=== PATIENT | female | born 1970 | race African-American/Black ===

== ENCOUNTER 2019-01-03 11:36 | Inpatient (IN) | payer OTHER ==
[2019-01-03 12:05] VITALS: BMI 25.7
--- NOTE | 2019-01-03 14:22 | HP ---
CIWA Score Nausea/Vomitin-No Nausea/No Vomiting Muscle Tremors: 4-Moderate,w/Arms Extend Anxiety: 3 Agitation: 3 Paroxysmal Sweats: 3 Orientation: 0-Oriented Tacttile Disturbances: 0-None Auditory Disturbances: 0-None Visual Disturbances: 0-None Headache: 2-Mild CIWA-Ar Total Score: 15 - Admission Criteria OASAS Guidelines: Admission for Medically Managed Detox: Requires at least one of the followin. CIWA greater than 12 2. Seizures within the past 24 hours 3. Delirium tremens within the past 24 hours 4. Hallucinations within the past 24 hours 5. Acute intervention needed for co occurring medical disorder 6. Acute intervention needed for co occurring psychiatric disorder 7. Severe withdrawal that cannot be handled at a lower level of care (continued vomiting, continued diarrhea, abnormal vital signs) requiring intravenous medication and/or fluids 8. Admission ROS [facility] - HPI Chief Complaint: I want to get my life together. Allergies/Adverse Reactions: Allergies Allergy/AdvReac Type Severity Reaction Status Date / Time aspirin Allergy Difficulty Verified 01/03/19 14:55 Breathing History of Present Illness: pt is a 48yr old female seeking detox for treatment. Pt states she was sober for 5yrs and relapsed a year ago. Exam Limitations: No Limitations - Ebola screening Have you traveled outside of the country in the last 21 days: No Have you had contact with anyone from an Ebola affected area: No Have you been sick,other than usual withdrawal symptoms: No Do you have a fever: No - Review of Systems Constitutional: Chills, Diaphoresis, Loss of Appetite, Night Sweats, Changes in sleep EENT: reports: Tearing, Nose Congestion Respiratory: reports: No Symptoms reported Cardiac: reports: Lightheadedness GI: reports: Diarrhea, Poor Appetite, Poor Fluid Intake : reports: No Symptoms Reported Musculoskeletal: reports: No Symptoms Reported Integumentary: reports: Flushing, Sweating Neuro: reports: Headache, Tingling, Tremors Endocrine: reports: Excessive Sweating, Flushing, Intolerance to Cold, Intolerance to Heat Hematology: reports: No Symptoms Reported Psychiatric: reports: No Sypmtoms Reported, Judgement Intact, Mood/Affect Appropiate, Orientated x3, Agitated, Anxious Other Systems: Reviewed and Negative Patient History - Patient Medical History Hx Anemia: No Hx Asthma: No Hx Chronic Obstructive Pulmonary Disease (COPD): No Hx Cancer: No Hx Cardiac Disorders: No Hx Congestive Heart Failure: No Hx Hypertension: Yes (lisinopril 10mg ) Hx Hypercholesterolemia: No Hx Pacemaker: No HX Cerebrovascular Accident: No Hx Seizures: No Hx Dementia: No Hx Diabetes: Yes (type 2 on metformin 500mg ) Hx Gastrointestinal Disorders: No Hx Liver Disease: No Hx Genitourinary Disorders: No Hx Sexually Transmitted Disorders: No (denies) Hx Renal Disease (ESRD): No Hx Thyroid Disease: No Hx Human Immunodeficiency Virus (HIV): No (negative) Hx Hepatitis C: Yes (treated 6months ago; undetecable) Hx Depression: Yes Hx Suicide Attempt: Yes (2007 and 2013; denies any S/H ideation today) Hx Bipolar Disorder: Yes (PTSD on meds) Hx Schizophrenia: No - Patient Surgical History Past Surgical History: No Anesthesia Reaction: No - PPD History Previous Implant?: Yes Documented Results: Negative w/o proof PPD to be Administered?: Yes - Reproductive History Patient is a Female of Child Bearing Age (11 -55 yrs old): Yes Last Menstrual Period: 01/03/19 Patient : No - Smoking Cessation Smoking history: Current every day smoker Have you smoked in the past 12 months: Yes Aproximately how many cigarettes per day: 20 Hx Chewing Tobacco Use: No Initiated information on smoking cessation: Yes 'Breaking Loose' booklet given: 01/03/19 - Substance & Tx. History Hx Alcohol Use: Yes Hx Substance Use: Yes Substance Use Type: Alcohol, Cocaine, Tranquilizers Hx Substance Use Treatment: Yes (last detox [facility] 2013) - Substances Abused Alcohol Route: Oral Frequency: Daily Amount used: 4-6 cans of 16oz beer Age of first use: 48 Date of Last Use: 01/02/19 Alprazolam (Xanax) Route: Oral Frequency: Daily Amount used: 10mg Age of first use: 19 Date of Last Use: 01/03/19 Family Disease History - Family Disease History Family Disease History: Diabetes: Grandparent (breast ca), Father, Mother ( ovarian?), Sister, [place]: Grandparent, Mother Admission Physical Exam BHS - Vital Signs Vital Signs: Vital Signs - 24 hr 01/03/19 12:02 Temperature 97.4 F L Pulse Rate 66 Respiratory 18 Rate Blood Pressure 150/89 - Physical General Appearance: Yes: Appropriately Dressed, Moderate Distress, Tremorous, Irritable, Sweating, Anxious HEENTM: Yes: Hearing grossly Normal, Normal Voice, Nasal Congestion, Rhinorrhea Respiratory: Yes: Lungs Clear, Normal Breath Sounds, No Respiratory Distress Neck: Yes: No masses,lesions,Nodules Breast: Yes: Within Normal Limits Cardiology: Yes: Regular Rhythm, Regular Rate, S1, S2 Abdominal: Yes: Normal Bowel Sounds, Flat Genitourinary: Yes: Within Normal Limits Back: Yes: Normal Inspection Musculoskeletal: Yes: full range of Motion, Back pain Extremities: Yes: Normal Capillary Refill, Non-Tender, Tremors Neurological: Yes: Fully Oriented, Alert, Normal Response Integumentary: Yes: Normal Color, Diaphoresis Lymphatic: Yes: Within Normal Limits - Diagnostic (1) Benzodiazepine dependence Current Visit: Yes Status: Chronic (2) Cocaine dependence Current Visit: Yes Status: Chronic Qualifiers: Substance use status: uncomplicated Qualified Code(s): F14.20 - Cocaine dependence, uncomplicated (3) Diabetes Current Visit: Yes Status: Chronic Qualifiers: Diabetes mellitus type: type 2 Diabetes mellitus complication status: without complication (4) Major depressive disorder Current Visit: No Status: Chronic (5) Methadone maintenance therapy patient Current Visit: Yes Status: Chronic Comment: pending verification (6) PTSD (post-traumatic stress disorder) Current Visit: No Status: Chronic Cleared for Admission [facility] - Detox or Rehab [facility] Level of Care: Medically Managed Detox Regimen/Protocol: Librium [facility] Breath Alcohol Content Breath Alcohol Content: 0 Urine Pregancy Test - Result Urine Test Results: Negative- NO Line Present Urine Drug Screen - Results Drug Screen Negative: No Urine Drug Screen Results: VAHID-Cocaine, BZO-Benzodiazepines, MTD-Methadone Inpatient Rehab Admission - Rehab Decision to Admit Inpatient rehab admission?: No
[2019-01-03] MEDS ORDERED: LOPERAMIDE HCL 2 MG CAPSULE PO PRN (15:17)
[2019-01-03] MEDS ORDERED: MENTHOL/PHENOL 1 EACH UD MM PRN (15:17)
[2019-01-03] MEDS ORDERED: chlordiazePOXIDE HCL 25 MG CAPSULE PO PRN (15:17)
[2019-01-03] MEDS ORDERED: P-EPHED 60MG/TRIPROLIDI 2.5MG TABLET PO PRN (15:17)
[2019-01-03] MEDS ORDERED: ACETAMINOPHEN 325 MG TABLET (FP) PO PRN (15:17)
[2019-01-03] MEDS ORDERED: guaiFENesin/D-METHORPHAN HB 10 ML UNIT-DOSE CUPS PO PRN (15:17)
[2019-01-03] MEDS ORDERED: MAGNESIUM HYDROX 2400MG/30ML ORAL SUSPENSION 30 ML CUP PO PRN (15:17)
[2019-01-03] MEDS ORDERED: MAG HYDROX/AL HYDROX/SIMETH 30 ML UNIT-DOSE CUP PO PRN (15:17)
[2019-01-03] MEDS ORDERED: chlordiazePOXIDE HCL 25 MG CAPSULE PO ONE (15:17)
[2019-01-03] MEDS ORDERED: MAGNESIUM CITRATE 300 ML BOTTLE PO PRN (15:17)
[2019-01-03] MEDS: chlordiazePOXIDE HCL 25 MG CAPSULE PO SCH (22:19)
[2019-01-03] MEDS: THIAMINE HCL 100 MG TABLET (FP) PO SCH (22:19)
[2019-01-03] MEDS: MELATONIN 5 MG TABLETS PO PRN (22:19)
[2019-01-03] MEDS: NICOTINE POLACRILEX 4 MG GUM BC PRN (22:21)
[2019-01-04] MEDS: chlordiazePOXIDE HCL 25 MG CAPSULE PO SCH ×4 (05:47→22:44)
[2019-01-04] MEDS: NICOTINE POLACRILEX 4 MG GUM BC PRN ×3 (05:49→14:48)
[2019-01-04] MEDS ORDERED: METHADONE HCL 10 MG TABLET PO SCH (08:00)
[2019-01-04] MEDS ORDERED: METHADONE 160 MG, METHADONE 20 MG PO ONE (08:15)
[2019-01-04] MEDS ORDERED: METHADONE HCL 10 MG TABLET ONE (08:20)
[2019-01-04] MEDS ORDERED: METHADONE HCL 40 MG DISPERSABLE TABLET ONE (08:20)
[2019-01-04] MEDS: metFORMIN HCL 500 MG TABLET (FP) PO SCH (08:34)
--- NOTE | 2019-01-04 09:12 | CONSULT ---
[facility] Psychiatric Consult - Data Date of interview: 01/04/19 Admission source: [facility] Identifying data: This is a 48 years old female, single mother of three, living with her Son, unemployed, on PA support, with psychiatric hospitalization history, history of Bipolar Disorder, PTSD, is reporting alcohol, xanax , nicotine dependence and seeking for detox. Substance Abuse History: Smoking history: Current every day smoker. Have you smoked in the past 12 months: Yes. Aproximately how many cigarettes per day: 20. Hx Chewing Tobacco Use: No. Initiated information on smoking cessation: Yes. 'Breaking Loose' booklet given: 01/03/19. - Substance & Tx. History. Hx Alcohol Use: Yes. Hx Substance Use: Yes. Substance Use Type: Alcohol, Cocaine , Tranquilizers. Hx Substance Use Treatment: Yes (last detox [facility] 2013). - Substances Abused. Alcohol. Route: Oral. Frequency: Daily. Amount used : 4-6 cans of 16oz beer. Age of first use: 48. Date of Last Use: 01/02/19. * * Alprazolam (Xanax). Route: Oral. Frequency: Daily. Amount used: 10mg. Age of first use: 19. Date of Last Use: 01/03/19 Medical History: MMTP 160mg per day, DM, Psychiatric History: Patient reports history of depression, history of psychiatric hospitalizations with most recent time on moren then 10 years ago, as per charts tjere is a history of suicidal attempts on 2007 and 2013, patient reports no suicidal, ezequiel,icdial ideation or attenpts since then. As per chart patient suffers, MDD, Bipolar Disorder, PTSD as well. Reports no medications taking prior [facility] admission. Physical/Sexual Abuse/Trauma History: Denies, unclear Additional Comment: Observation. Detox Unit Care Protocol Mental Status Exam - Mental Status Exam Alert and Oriented to: Person Cognitive Function: Fair Patient Appearance: Well Groomed Mood: Sad Affect: Flat Patient Behavior: Sedated, Cooperative Speech Pattern: Delayed Voice Loudness: Mildly Soft/Quiet Thought Process: Goal Oriented Thought Disorder: Being Controlled Hallucinations: Denies Suicidal Ideation: Denies Homicidal Ideation: Denies Insight/Judgement: Fair Sleep: Difficulty falling asleep Appetite: Weight gain Muscle strength/Tone: Mild Hypotonicity Gait/Station: Shuffling Additional Comments: Observation. Detox Unit Care Protocol Psychiatric Findings - Problem List ([place] 1, 2,3) (1) Alcohol abuse with physiological dependence Current Visit: Yes Status: Acute (2) Benzodiazepine dependence Current Visit: Yes Status: Chronic (3) Cocaine dependence Current Visit: Yes Status: Chronic Qualifiers: Substance use status: uncomplicated Qualified Code(s): F14.20 - Cocaine dependence, uncomplicated (4) Diabetes Current Visit: Yes Status: Chronic Qualifiers: Diabetes mellitus type: type 2 Diabetes mellitus complication status: without complication (5) Methadone maintenance therapy patient Current Visit: Yes Status: Chronic Comment: pending verification (6) Major depressive disorder Current Visit: No Status: Chronic (7) PTSD (post-traumatic stress disorder) Current Visit: No Status: Chronic - Initial Treatment Plan Initial Treatment Plan: Observation. Detox Unit Care Protocol
[2019-01-04] MEDS: LISINOPRIL 10 MG TABLET (FP) PO SCH (10:14)
[2019-01-04] MEDS: PRENATAL VITAMINS W/ FOLIC ACID TABLET (FP) PO SCH (10:14)
[2019-01-04] MEDS: NICOTINE 21 MG/24 HOURS TOPICAL PATCH TD SCH (10:15)
[2019-01-04 10:44] LABS: HEMATOCRIT 27.5 % (32.4-45.2); HEMOGLOBIN 8.7 GM/dL (10.7-15.3); MCH 24.9 pg (25.7-33.7); MCHC 31.8 g/dl (32.0-36.0); MEAN CELL VOLUME 78.3 fl (80-96); MEAN PLT VOLUME 10.1 fl (7.5-11.1); PLATELET COUNT 133 K/MM3 (134-434); RBC 3.51 M/mm3 (3.60-5.2); RDW 18.6 % (11.6-15.6); WHITE BLOOD COUNT 5.2 K/mm3 (4.0-10.0)
--- NOTE | 2019-01-04 11:06 | PN ---
S CIWA - CIWA Score Nausea/Vomitin-No Nausea/No Vomiting Muscle Tremors: 3 Anxiety: 3 Agitation: 3 Paroxysmal Sweats: 3 Orientation: 0-Oriented Tacttile Disturbances: 0-None Auditory Disturbances: 0-None Visual Disturbances: 0-None Headache: 0-None Present CIWA-Ar Total Score: 12 BHS Progress Note (SOAP) Subjective: sweats some shakes interrupted sleep tired body aches Objective: 01/04/19 11:04 Vital Signs Temperature 98.2 F 01/04/19 09:31 Pulse Rate 56 L 01/04/19 09:31 Respiratory Rate 16 01/04/19 09:31 Blood Pressure 145/86 01/04/19 09:31 O2 Sat by Pulse Oximetry (%) Laboratory Tests 01/03/19 01/04/19 01/04/19 15:33 05:45 06:45 WBC 5.2 RBC 3.51 L Hgb 8.7 L Hct 27.5 L D MCV 78.3 L MCH 24.9 L D MCHC 31.8 L RDW 18.6 H Plt Count 133 L D MPV 10.1 POC Glucometer 104 97 rest of labs pending aaox3 ambulating no acute distress low H:H; iron supplements ordered Assessment: 01/04/19 11:05 withdrawal sx Plan: continue detox increase fluids labs pending iron supplement tid ordered
[2019-01-04 11:40] LABS: ALBUMIN 3.2 g/dl (3.4-5.0); ALK PHOS 99 U/L (45-117); ANION GAP 3 MMOL/L (8-16); BILIRUBIN,TOTAL < 0.1 mg/dL (0.2-1); BLOOD UREA NITROGEN 10 mg/dL (7-18); CALCIUM 8.1 mg/dL (8.5-10.1); CHLORIDE 103 mmol/L (98-107); CO2 32 mmol/L (21-32); CREATININE 0.6 mg/dL (0.55-1.3); GLUCOSE,RANDOM 78 mg/dL (74-106); SGOT/AST 46 U/L (15-37); SGPT/ALT 30 U/L (13-61); SODIUM 137 mmol/L (136-145); TOT PROT 7.1 g/dl (6.4-8.2)
[2019-01-04] MEDS: FERROUS SO4 325 MG TABLET (FP) PO SCH ×2 (12:48→17:49)
[2019-01-04] MEDS: hydrOXYzine PAMOATE 50 MG CAPSULE (FP) PO PRN (22:44)
[2019-01-04] MEDS: THIAMINE HCL 100 MG TABLET (FP) PO SCH (22:46)
[2019-01-05] MEDS ORDERED: METHADONE HCL 40 MG DISPERSABLE TABLET ONE (04:13)
[2019-01-05] MEDS ORDERED: METHADONE HCL 10 MG TABLET ONE (04:14)
[2019-01-05] MEDS: METHADONE 160 MG, METHADONE 20 MG PO SCH (05:39)
[2019-01-05] MEDS: chlordiazePOXIDE HCL 25 MG CAPSULE PO SCH ×3 (05:40→17:34)
[2019-01-05] MEDS: NICOTINE POLACRILEX 4 MG GUM BC PRN ×5 (05:42→22:17)
[2019-01-05] MEDS: hydrOXYzine PAMOATE 50 MG CAPSULE (FP) PO PRN (06:56)
[2019-01-05] MEDS: metFORMIN HCL 500 MG TABLET (FP) PO SCH (06:56)
[2019-01-05] MEDS: FERROUS SO4 325 MG TABLET (FP) PO SCH ×3 (07:14→17:32)
[2019-01-05] MEDS: PRENATAL VITAMINS W/ FOLIC ACID TABLET (FP) PO SCH (10:45)
[2019-01-05] MEDS: NICOTINE 21 MG/24 HOURS TOPICAL PATCH TD SCH (10:46)
[2019-01-05] MEDS: LISINOPRIL 10 MG TABLET (FP) PO SCH (10:46)
--- NOTE | 2019-01-05 11:36 | PN ---
[facility] CIWA - CIWA Score Nausea/Vomitin-No Nausea/No Vomiting Muscle Tremors: 3 Anxiety: 3 Agitation: 3 Paroxysmal Sweats: 2 Orientation: 0-Oriented Tacttile Disturbances: 0-None Auditory Disturbances: 0-None Visual Disturbances: 0-None Headache: 0-None Present CIWA-Ar Total Score: 11 S Progress Note (SOAP) Subjective: sweats body aches interrupted sleep Objective: 01/05/19 11:36 Vital Signs Temperature 98.6 F 01/05/19 09:00 Pulse Rate 58 L 01/05/19 09:00 Respiratory Rate 16 01/05/19 09:00 Blood Pressure 103/57 L 01/05/19 09:00 O2 Sat by Pulse Oximetry (%) Laboratory Tests 01/03/19 01/04/19 01/04/19 15:33 05:45 06:45 WBC 5.2 RBC 3.51 L Hgb 8.7 L Hct 27.5 L D MCV 78.3 L MCH 24.9 L D MCHC 31.8 L RDW 18.6 H Plt Count 133 L D MPV 10.1 Sodium Potassium Chloride Carbon Dioxide Anion Gap BUN Creatinine Creat Clearance w eGFR POC Glucometer 104 97 Random Glucose Calcium Total Bilirubin AST ALT Alkaline Phosphatase Total Protein Albumin RPR Titer 01/04/19 01/04/19 01/05/19 06:45 06:45 05:39 WBC RBC Hgb Hct MCV MCH MCHC RDW Plt Count MPV Sodium 137 Potassium 4.0 Chloride 103 Carbon Dioxide 32 Anion Gap 3 L BUN 10 Creatinine 0.6 Creat Clearance w eGFR > 60 POC Glucometer 76 Random Glucose 78 Calcium 8.1 L Total Bilirubin < 0.1 L AST 46 H ALT 30 Alkaline Phosphatase 99 Total Protein 7.1 Albumin 3.2 L RPR Titer Nonreactive aaox3 ambulating no acute distress Assessment: 01/05/19 11:36 mild withdrawal sx Plan: continue detox increase fluids
[2019-01-05] MEDS: THIAMINE HCL 100 MG TABLET (FP) PO SCH (22:16)
[2019-01-05] MEDS: chlordiazePOXIDE 5 MG CAPSULE PO SCH (22:16)
[2019-01-05] MEDS: MELATONIN 5 MG TABLETS PO PRN (22:17)
[2019-01-06] MEDS ORDERED: METHADONE HCL 40 MG DISPERSABLE TABLET ONE (04:43)
[2019-01-06] MEDS ORDERED: METHADONE HCL 10 MG TABLET ONE (04:44)
[2019-01-06] MEDS: METHADONE 160 MG, METHADONE 20 MG PO SCH (05:23)
[2019-01-06] MEDS: chlordiazePOXIDE 5 MG CAPSULE PO SCH ×3 (05:23→17:41)
[2019-01-06] MEDS: NICOTINE POLACRILEX 4 MG GUM BC PRN ×2 (06:05→17:42)
[2019-01-06] MEDS: metFORMIN HCL 500 MG TABLET (FP) PO SCH (07:05)
[2019-01-06] MEDS: FERROUS SO4 325 MG TABLET (FP) PO SCH ×3 (07:05→17:41)
[2019-01-06] MEDS: PRENATAL VITAMINS W/ FOLIC ACID TABLET (FP) PO SCH (10:27)
[2019-01-06] MEDS: LISINOPRIL 10 MG TABLET (FP) PO SCH (10:27)
[2019-01-06] MEDS: NICOTINE 21 MG/24 HOURS TOPICAL PATCH TD SCH (10:28)
--- NOTE | 2019-01-06 15:04 | PN ---
[facility] Progress Note (SOAP) Subjective: PT C/O SWEATS, TREMORS, FATIGUE. Objective: 01/06/19 15:02 Vital Signs 01/06/19 10:15 Temperature 98.1 F Pulse Rate 65 Respiratory 18 Rate Blood Pressure 113/64 Laboratory Tests 01/03/19 01/04/19 01/04/19 15:33 05:45 06:45 WBC 5.2 RBC 3.51 L Hgb 8.7 L Hct 27.5 L D MCV 78.3 L MCH 24.9 L D MCHC 31.8 L RDW 18.6 H Plt Count 133 L D MPV 10.1 Sodium Potassium Chloride Carbon Dioxide Anion Gap BUN Creatinine Creat Clearance w eGFR POC Glucometer 104 97 Random Glucose Calcium Total Bilirubin AST ALT Alkaline Phosphatase Total Protein Albumin RPR Titer 01/04/19 01/04/19 01/05/19 06:45 06:45 05:39 WBC RBC Hgb Hct MCV MCH MCHC RDW Plt Count MPV Sodium 137 Potassium 4.0 Chloride 103 Carbon Dioxide 32 Anion Gap 3 L BUN 10 Creatinine 0.6 Creat Clearance w eGFR > 60 POC Glucometer 76 Random Glucose 78 Calcium 8.1 L Total Bilirubin < 0.1 L AST 46 H ALT 30 Alkaline Phosphatase 99 Total Protein 7.1 Albumin 3.2 L RPR Titer Nonreactive 01/06/19 01/06/19 05:21 07:32 WBC RBC Hgb Hct MCV MCH MCHC RDW Plt Count MPV Sodium Potassium Chloride Carbon Dioxide Anion Gap BUN Creatinine Creat Clearance w eGFR POC Glucometer 55 108 Random Glucose Calcium Total Bilirubin AST ALT Alkaline Phosphatase Total Protein Albumin RPR Titer LOW H/H -PT ON FEOSOL Assessment: 01/06/19 15:02 WITHDRAWAL SX Plan: CONTINUE DETOX
[2019-01-06] MEDS: hydrOXYzine PAMOATE 50 MG CAPSULE (FP) PO PRN (15:34)
[2019-01-06] MEDS: chlordiazePOXIDE HCL 10 MG CAPSULE PO SCH (22:44)
[2019-01-06] MEDS: THIAMINE HCL 100 MG TABLET (FP) PO SCH (22:45)
[2019-01-07] MEDS ORDERED: METHADONE HCL 40 MG DISPERSABLE TABLET ONE (04:53)
[2019-01-07] MEDS ORDERED: METHADONE HCL 10 MG TABLET ONE (04:54)
[2019-01-07] MEDS: METHADONE 160 MG, METHADONE 20 MG PO SCH (05:23)
[2019-01-07] MEDS: chlordiazePOXIDE HCL 10 MG CAPSULE PO SCH (05:24)
[2019-01-07 06:45] VITALS: BP 135/77; PULSE 64; TEMP 97.9
[2019-01-07] MEDS: metFORMIN HCL 500 MG TABLET (FP) PO SCH (08:09)
--- NOTE | 2019-01-07 13:42 | DS ---
[facility] Detox Discharge Summary Admission Date: 01/03/19 Discharge Date: 01/07/19 - History Present History: Alcohol Dependence, Cocaine Dependence, Opioid Dependence, Sedative Dependence, MMTP Additional Comments: Patient completed detox successfully and scheduled for discharge today. Patient is A/A/Ox3, in nad, vss, ambulatory. Patient instructed to follow up with her PCP within 1-2 weeks. Pertinent Past History: Anemia HTN DMT2 Opioid dependence on agonist Alcohol dependence Sedative dependence Cocaine dependence Nicotine dependence Hepatitis C (treated) Depression Bipolar disorder PTSD - Physical Exam Results Vital Signs: Vital Signs Temperature 97.9 F 01/07/19 06:00 Pulse Rate 64 01/07/19 06:00 Respiratory Rate 16 01/07/19 06:00 Blood Pressure 135/77 01/07/19 06:00 O2 Sat by Pulse Oximetry (%) Pertinent Admission Physical Exam Findings: Withdrawal symptoms Laboratory Tests 01/03/19 01/04/19 01/04/19 15:33 05:45 06:45 WBC 5.2 RBC 3.51 L Hgb 8.7 L Hct 27.5 L D MCV 78.3 L MCH 24.9 L D MCHC 31.8 L RDW 18.6 H Plt Count 133 L D MPV 10.1 Sodium Potassium Chloride Carbon Dioxide Anion Gap BUN Creatinine Creat Clearance w eGFR POC Glucometer 104 97 Random Glucose Calcium Total Bilirubin AST ALT Alkaline Phosphatase Total Protein Albumin RPR Titer 01/04/19 01/04/19 01/05/19 06:45 06:45 05:39 WBC RBC Hgb Hct MCV MCH MCHC RDW Plt Count MPV Sodium 137 Potassium 4.0 Chloride 103 Carbon Dioxide 32 Anion Gap 3 L BUN 10 Creatinine 0.6 Creat Clearance w eGFR > 60 POC Glucometer 76 Random Glucose 78 Calcium 8.1 L Total Bilirubin < 0.1 L AST 46 H ALT 30 Alkaline Phosphatase 99 Total Protein 7.1 Albumin 3.2 L RPR Titer Nonreactive 01/06/19 01/06/19 01/07/19 05:21 07:32 05:22 WBC RBC Hgb Hct MCV MCH MCHC RDW Plt Count MPV Sodium Potassium Chloride Carbon Dioxide Anion Gap BUN Creatinine Creat Clearance w eGFR POC Glucometer 55 108 74 Random Glucose Calcium Total Bilirubin AST ALT Alkaline Phosphatase Total Protein Albumin RPR Titer Labs reviewed - Treatment Hospital Course: Detox Protocol Followed, Detoxed Safely, Responded well, Discharged Condition Good - Medication Discharge Medications: Ambulatory Orders Lisinopril [Prinivil] 10 mg PO DAILY 01/03/19 Metformin HCl [Glucophage] 500 mg PO DAILY 01/03/19 - Diagnosis (1) Anemia Current Visit: Yes Status: Chronic (2) HTN (hypertension) Current Visit: Yes Status: Chronic (3) Type 2 diabetes mellitus Current Visit: Yes Status: Chronic (4) Opioid dependence on agonist therapy Current Visit: Yes Status: Acute (5) Nicotine dependence Current Visit: Yes Status: Chronic (6) Hepatitis C Current Visit: Yes Status: Chronic (7) Bipolar disorder Current Visit: Yes Status: Chronic (8) Major depressive disorder Current Visit: Yes Status: Chronic (9) PTSD (post-traumatic stress disorder) Current Visit: Yes Status: Chronic - AMA Did Patient Leave Against Medical Advice: No (Follow up with your PCP within 1- 2 weeks)
== END 2019-01-07 09:25 | disposition home or self-care (01) | DRG 773 ==
LOC: YASAS 11:36 → Y6N 15:36
PROVIDERS: ADMIT Surgery; ATTEND Surgery
PROC: HZ2ZZZZ Detoxification Services for Substance Abuse Treatment (ICD-10-PCS; principal; 2019-01-03)
DX: F10.230 Alcohol dependence with withdrawal, uncomplicated (principal); F13.230 Sedative, hypnotic or anxiolytic dependence with withdrawal, uncomplicated; F14.20 Cocaine dependence, uncomplicated; F11.20 Opioid dependence, uncomplicated; F17.210 Nicotine dependence, cigarettes, uncomplicated; F31.9 Bipolar disorder, unspecified; F43.10 Post-traumatic stress disorder, unspecified; B18.2 Chronic viral hepatitis C; E11.9 Type 2 diabetes mellitus without complications; Z79.84 Long term (current) use of oral hypoglycemic drugs; Z91.5 Personal history of self-harm
CPT/HCPCS: 36415; 80053; 82962; 85027; 86593

== ENCOUNTER 2019-01-23 16:41 | Inpatient (IN) | payer OTHER ==
[2019-01-23 17:57] VITALS: BMI 24.0
--- NOTE | 2019-01-23 20:50 | HP ---
CIWA Score - Admission Criteria OASAS Guidelines: Admission for Medically Managed Detox: Requires at least one of the followin. CIWA greater than 12 2. Seizures within the past 24 hours 3. Delirium tremens within the past 24 hours 4. Hallucinations within the past 24 hours 5. Acute intervention needed for co occurring medical disorder 6. Acute intervention needed for co occurring psychiatric disorder 7. Severe withdrawal that cannot be handled at a lower level of care (continued vomiting, continued diarrhea, abnormal vital signs) requiring intravenous medication and/or fluids 8. Admission ROS S - HPI Chief Complaint: Seeking admission to Rehab Allergies/Adverse Reactions: Allergies Allergy/AdvReac Type Severity Reaction Status Date / Time aspirin Allergy Difficulty Verified 01/23/19 19:50 Breathing History of Present Illness: 48 years old female with a history of crack cocaine and Xanax (street) dependence is seeking admission to Rehab. Patient has been in previous Rehab. She has medical history of DM type 2, Hypertension, Hep C and Depression. She reports suicide attempt in 2007 and 2013. She denies suicidal ideation at this time. Patient is on [facility]. Dose is yet to be confirmed by the nurse. Exam Limitations: No Limitations - Ebola screening Have you traveled outside of the country in the last 21 days: No (N) Have you had contact with anyone from an Ebola affected area: No Have you been sick,other than usual withdrawal symptoms: No Do you have a fever: No - Review of Systems Constitutional: No Symptoms Reported EENT: reports: No Symptoms Reported Respiratory: reports: No Symptoms reported Cardiac: reports: No Symptoms Reported GI: reports: No Symptoms Reported : reports: No Symptoms Reported Musculoskeletal: reports: No Symptoms Reported Integumentary: reports: No Symptoms Reported Neuro: reports: No Symptoms reported Endocrine: reports: No Symptoms Reported Hematology: reports: No Symptoms Reported Psychiatric: reports: No Sypmtoms Reported, Mood/Affect Appropiate, Orientated x3 Other Systems: Reviewed and Negative Patient History - Patient Medical History Hx Anemia: No Hx Asthma: No Hx Chronic Obstructive Pulmonary Disease (COPD): No Hx Cancer: No Hx Cardiac Disorders: No Hx Congestive Heart Failure: No Hx Hypertension: Yes (lisinopril 10mg ) Hx Hypercholesterolemia: No Hx Pacemaker: No HX Cerebrovascular Accident: No Hx Seizures: No Hx Dementia: No Hx Diabetes: Yes (type 2 on metformin 500mg ) Hx Gastrointestinal Disorders: No Hx Liver Disease: No Hx Genitourinary Disorders: No Hx Sexually Transmitted Disorders: No (denies) Hx Renal Disease (ESRD): No Hx Thyroid Disease: No Hx Human Immunodeficiency Virus (HIV): No (negative) Hx Hepatitis C: Yes (treated 6months ago; undetecable) Hx Depression: Yes Hx Suicide Attempt: Yes (2007 and 2013; denies any S/H ideation today) Hx Bipolar Disorder: Yes (PTSD on meds) Hx Schizophrenia: No - Patient Surgical History Past Surgical History: No - PPD History Previous Implant?: Yes Documented Results: Positive w/o proof Implanted On Prior [facility] Admission?: Yes Date: 01/05/19 Results: 0 mm PPD to be Administered?: No - Reproductive History Patient is a Female of Child Bearing Age (11 -55 yrs old): No (MALE) Last Menstrual Period: 01/03/19 Patient : No - Smoking Cessation Smoking history: Current every day smoker Have you smoked in the past 12 months: Yes Aproximately how many cigarettes per day: 20 Hx Chewing Tobacco Use: No Initiated information on smoking cessation: Yes 'Breaking Loose' booklet given: 01/23/19 - Substance & Tx. History Hx Alcohol Use: No Hx Substance Use: Yes Substance Use Type: Cocaine Hx Substance Use Treatment: Yes ([facility]) - Substances Abused Alprazolam (Xanax) Route: Oral Frequency: Daily Amount used: half brick Age of first use: 28 Date of Last Use: 01/22/19 Cocaine Route: Smoking Frequency: Daily Amount used: 30 Age of first use: 16 Date of Last Use: 01/22/19 Family Disease History - Family Disease History Family Disease History: Diabetes: Grandparent (breast ca), Father, Mother ( ovarian?), Sister, [place]: Grandparent, Mother Admission Physical Exam BHS - Vital Signs Vital Signs: Vital Signs - 24 hr 01/23/19 17:55 Temperature 98.8 F Pulse Rate 89 Respiratory 18 Rate Blood Pressure 147/94 - Physical General Appearance: Yes: Within Normal Limits, Nourished HEENTM: Yes: EOMI, Normal ENT Inspection, Normal Voice, HEATHER Respiratory: Yes: Lungs Clear, Normal Breath Sounds, No Respiratory Distress Neck: Yes: Supple Breast: Yes: Breast Exam Deferred Cardiology: Yes: Regular Rhythm, Regular Rate Abdominal: Yes: Normal Bowel Sounds, Soft Genitourinary: Yes: Within Normal Limits Back: Yes: Normal Inspection Musculoskeletal: Yes: Within Normal Limits Extremities: Yes: Normal Inspection Neurological: Yes: sales service professional II-XII NML intact, Alert, Normal Mood/Affect Integumentary: Yes: Warm Lymphatic: Yes: Within Normal Limits Cleared for Admission [facility] - Detox or Rehab [facility] Level of Care: Observation Bed Claeared for Rehab Admission: Yes [facility] Breath Alcohol Content Breath Alcohol Content: 0 Urine Pregancy Test - Result Urine Test Results: Negative - NO Line Present Urine Drug Screen - Results Drug Screen Negative: No Urine Drug Screen Results: VAHID-Cocaine, BZO-Benzodiazepines, MTD-Methadone Inpatient Rehab Admission - Rehab Decision to Admit Inpatient rehab admission?: Yes - Initial Determination Are CD services needed?: No Free of communicable disease: Yes Not in need of hospitalization: Yes - Rehab Admission Criteria Previous failed treatment: Yes Poor recovery environment: Yes Comorbidities: Yes Lacks judgement: No Patient is meeting Inpatient Rehab admission criteria:: Yes
[2019-01-23] MEDS ORDERED: MAGNESIUM CITRATE 300 ML BOTTLE PO PRN (21:21)
[2019-01-23] MEDS ORDERED: MAG HYDROX/AL HYDROX/SIMETH 30 ML UNIT-DOSE CUP PO PRN (21:21)
[2019-01-23] MEDS ORDERED: P-EPHED 60MG/TRIPROLIDI 2.5MG TABLET PO PRN (21:21)
[2019-01-23] MEDS ORDERED: MENTHOL/PHENOL 1 EACH UD MM PRN (21:21)
[2019-01-23] MEDS ORDERED: MAGNESIUM HYDROX 2400MG/30ML ORAL SUSPENSION 30 ML CUP PO PRN (21:21)
[2019-01-23] MEDS ORDERED: guaiFENesin 200 MG/10 ML 10 ML UNIT-DOSE CUPS PO PRN (21:21)
[2019-01-23] MEDS ORDERED: LOPERAMIDE HCL 2 MG CAPSULE PO PRN (21:21)
[2019-01-23] MEDS: THIAMINE HCL 100 MG TABLET (FP) PO SCH (22:53)
[2019-01-23] MEDS: NICOTINE POLACRILEX 2 MG GUM BC PRN (23:31)
[2019-01-23] MEDS: MELATONIN 5 MG TABLETS PO PRN (23:31)
[2019-01-24] MEDS: metFORMIN HCL 500 MG TABLET (FP) PO SCH (07:38)
[2019-01-24] MEDS ORDERED: METHADONE HCL 10 MG TABLET PO ONE (08:02)
[2019-01-24] MEDS ORDERED: METHADONE 160 MG, METHADONE 20 MG PO ONE (08:30)
[2019-01-24] MEDS ORDERED: METHADONE HCL 10 MG TABLET ONE (08:45)
[2019-01-24] MEDS ORDERED: METHADONE HCL 40 MG DISPERSABLE TABLET ONE (08:47)
[2019-01-24] MEDS: PRENATAL VITAMINS W/ FOLIC ACID TABLET (FP) PO SCH (09:52)
[2019-01-24] MEDS: NICOTINE POLACRILEX 2 MG GUM BC PRN ×4 (09:52→21:37)
[2019-01-24] MEDS: NICOTINE 14 MG/24 HOURS TOPICAL PATCH TD SCH (09:52)
[2019-01-24] MEDS: LISINOPRIL 10 MG TABLET (FP) PO SCH (09:53)
[2019-01-24 10:34] LABS: ALK PHOS 95 U/L (45-117); ANION GAP 2 MMOL/L (8-16); BILIRUBIN,TOTAL 0.2 mg/dL (0.2-1); BLOOD UREA NITROGEN 11 mg/dL (7-18); CALCIUM 7.9 mg/dL (8.5-10.1); CHLORIDE 105 mmol/L (98-107); CO2 33 mmol/L (21-32); CREATININE 0.7 mg/dL (0.55-1.3); GLUCOSE,RANDOM 84 mg/dL (74-106); SGOT/AST 23 U/L (15-37); SGPT/ALT 22 U/L (13-61); SODIUM 140 mmol/L (136-145); TOT PROT 6.6 g/dl (6.4-8.2)
[2019-01-24 11:03] LABS: HEMATOCRIT 28.7 % (32.4-45.2); HEMOGLOBIN 9.1 GM/dL (10.7-15.3); MCH 25.5 pg (25.7-33.7); MCHC 31.8 g/dl (32.0-36.0); MEAN CELL VOLUME 80.4 fl (80-96); MEAN PLT VOLUME 9.3 fl (7.5-11.1); PLATELET COUNT 246 K/MM3 (134-434); RBC 3.57 M/mm3 (3.60-5.2); RDW 19.6 % (11.6-15.6); WHITE BLOOD COUNT 4.6 K/mm3 (4.0-10.0)
[2019-01-24] MEDS: THIAMINE HCL 100 MG TABLET (FP) PO SCH (21:36)
[2019-01-24] MEDS: MELATONIN 5 MG TABLETS PO PRN (21:37)
[2019-01-25 01:45] LABS: URINE APPEARANCE SLCLOUDY; URINE BILIRUBIN NEGATIVE (<2.0 mg/dL); URINE COLOR YELLOW; URINE GLUCOSE (UA) NEGATIVE (NEGATIVE); URINE KETONE NEGATIVE (NEGATIVE); URINE LEUK ESTERASE TRACE (NEGATIVE); URINE NITRITE POSITIVE (NEGATIVE); URINE PROTEIN NEGATIVE (NEGATIVE)
[2019-01-25 01:53] LABS: EPI CELLS RARE /HPF (FEW); URINE BACTERIA MODERATE /hpf (NONE SEEN)
[2019-01-25] MEDS ORDERED: METHADONE HCL 10 MG TABLET PO SCH (06:00)
[2019-01-25] MEDS ORDERED: METHADONE HCL 40 MG DISPERSABLE TABLET ONE (06:28)
[2019-01-25] MEDS ORDERED: METHADONE HCL 10 MG TABLET ONE (06:28)
[2019-01-25] MEDS: metFORMIN HCL 500 MG TABLET (FP) PO SCH (06:33)
[2019-01-25] MEDS: METHADONE 160 MG, METHADONE 20 MG PO SCH (06:33)
[2019-01-25] MEDS: PRENATAL VITAMINS W/ FOLIC ACID TABLET (FP) PO SCH (10:06)
[2019-01-25] MEDS: NICOTINE 14 MG/24 HOURS TOPICAL PATCH TD SCH (10:06)
[2019-01-25] MEDS: LISINOPRIL 10 MG TABLET (FP) PO SCH (10:06)
[2019-01-25] MEDS: NICOTINE POLACRILEX 2 MG GUM BC PRN ×2 (10:08→13:41)
[2019-01-25] MEDS: THIAMINE HCL 100 MG TABLET (FP) PO SCH (23:15)
[2019-01-26] MEDS ORDERED: METHADONE HCL 10 MG TABLET ONE (03:24)
[2019-01-26] MEDS ORDERED: METHADONE HCL 40 MG DISPERSABLE TABLET ONE (03:25)
[2019-01-26] MEDS: metFORMIN HCL 500 MG TABLET (FP) PO SCH (06:43)
[2019-01-26] MEDS: METHADONE 160 MG, METHADONE 20 MG PO SCH (06:43)
[2019-01-26] MEDS: NICOTINE POLACRILEX 2 MG GUM BC PRN ×3 (06:46→20:33)
[2019-01-26] MEDS: PRENATAL VITAMINS W/ FOLIC ACID TABLET (FP) PO SCH (10:22)
[2019-01-26] MEDS: NICOTINE 14 MG/24 HOURS TOPICAL PATCH TD SCH (10:22)
[2019-01-26] MEDS: LISINOPRIL 10 MG TABLET (FP) PO SCH (10:24)
[2019-01-26] MEDS: IBUPROFEN 400 MG TABLET (FP) PO PRN (12:08)
[2019-01-26] MEDS: THIAMINE HCL 100 MG TABLET (FP) PO SCH (21:25)
[2019-01-26] MEDS: MELATONIN 5 MG TABLETS PO PRN (21:25)
[2019-01-27] MEDS ORDERED: METHADONE HCL 10 MG TABLET ONE (05:43)
[2019-01-27] MEDS ORDERED: METHADONE HCL 40 MG DISPERSABLE TABLET ONE (05:44)
[2019-01-27] MEDS: metFORMIN HCL 500 MG TABLET (FP) PO SCH (06:24)
[2019-01-27] MEDS: METHADONE 160 MG, METHADONE 20 MG PO SCH (06:25)
[2019-01-27] MEDS: NICOTINE POLACRILEX 2 MG GUM BC PRN ×3 (07:49→16:31)
[2019-01-27] MEDS: NICOTINE 14 MG/24 HOURS TOPICAL PATCH TD SCH (10:14)
[2019-01-27] MEDS: PRENATAL VITAMINS W/ FOLIC ACID TABLET (FP) PO SCH (10:15)
[2019-01-27] MEDS: LISINOPRIL 10 MG TABLET (FP) PO SCH (10:15)
[2019-01-27] MEDS: IBUPROFEN 400 MG TABLET (FP) PO PRN (11:27)
[2019-01-27] MEDS: ACETAMINOPHEN 325 MG TABLET (FP) PO PRN (12:48)
[2019-01-27 19:05] LABS: URINE APPEARANCE CLOUDY; URINE BILIRUBIN NEGATIVE (<2.0 mg/dL); URINE COLOR YELLOW; URINE GLUCOSE (UA) NEGATIVE (NEGATIVE); URINE KETONE NEGATIVE (NEGATIVE); URINE LEUK ESTERASE NEGATIVE (NEGATIVE); URINE NITRITE NEGATIVE (NEGATIVE); URINE PROTEIN NEGATIVE (NEGATIVE); URINE UROBILINOGEN NEGATIVE mg/dL (0.2-1.0)
[2019-01-27] MEDS: THIAMINE HCL 100 MG TABLET (FP) PO SCH (21:35)
[2019-01-27] MEDS: MELATONIN 5 MG TABLETS PO PRN (21:35)
[2019-01-28] MEDS ORDERED: METHADONE HCL 10 MG TABLET ONE (05:50)
[2019-01-28] MEDS ORDERED: METHADONE HCL 40 MG DISPERSABLE TABLET ONE (05:50)
[2019-01-28] MEDS: METHADONE 160 MG, METHADONE 20 MG PO SCH (06:35)
[2019-01-28] MEDS: metFORMIN HCL 500 MG TABLET (FP) PO SCH (06:36)
[2019-01-28] MEDS: NICOTINE POLACRILEX 2 MG GUM BC PRN ×3 (06:37→20:38)
[2019-01-28] MEDS: PRENATAL VITAMINS W/ FOLIC ACID TABLET (FP) PO SCH (10:34)
[2019-01-28] MEDS: LISINOPRIL 10 MG TABLET (FP) PO SCH (10:35)
[2019-01-28] MEDS: NICOTINE 14 MG/24 HOURS TOPICAL PATCH TD SCH (10:35)
[2019-01-28] MEDS: THIAMINE HCL 100 MG TABLET (FP) PO SCH (21:17)
[2019-01-28] MEDS: MELATONIN 5 MG TABLETS PO PRN (21:18)
[2019-01-29] MEDS ORDERED: METHADONE HCL 10 MG TABLET ONE (02:14)
[2019-01-29] MEDS ORDERED: METHADONE HCL 40 MG DISPERSABLE TABLET ONE (02:14)
[2019-01-29] MEDS: metFORMIN HCL 500 MG TABLET (FP) PO SCH (06:20)
[2019-01-29] MEDS: METHADONE 160 MG, METHADONE 20 MG PO SCH (06:21)
[2019-01-29] MEDS: NICOTINE POLACRILEX 2 MG GUM BC PRN ×3 (06:22→14:02)
[2019-01-29] MEDS: PRENATAL VITAMINS W/ FOLIC ACID TABLET (FP) PO SCH (10:16)
[2019-01-29] MEDS: LISINOPRIL 10 MG TABLET (FP) PO SCH (10:16)
[2019-01-29] MEDS: NICOTINE 14 MG/24 HOURS TOPICAL PATCH TD SCH (10:16)
[2019-01-29] MEDS: FERROUS SO4 325 MG TABLET (FP) PO SCH ×2 (13:00→21:16)
[2019-01-29] MEDS: THIAMINE HCL 100 MG TABLET (FP) PO SCH (21:15)
[2019-01-29] MEDS: MELATONIN 5 MG TABLETS PO PRN (21:16)
[2019-01-30] MEDS ORDERED: METHADONE HCL 10 MG TABLET ONE (03:24)
[2019-01-30] MEDS ORDERED: METHADONE HCL 40 MG DISPERSABLE TABLET ONE (03:25)
[2019-01-30] MEDS: metFORMIN HCL 500 MG TABLET (FP) PO SCH (06:39)
[2019-01-30] MEDS: METHADONE 160 MG, METHADONE 20 MG PO SCH (06:40)
[2019-01-30] MEDS: NICOTINE POLACRILEX 2 MG GUM BC PRN ×4 (06:42→19:02)
[2019-01-30] MEDS: FERROUS SO4 325 MG TABLET (FP) PO SCH ×2 (10:14→21:25)
[2019-01-30] MEDS: LISINOPRIL 10 MG TABLET (FP) PO SCH (10:14)
[2019-01-30] MEDS: NICOTINE 14 MG/24 HOURS TOPICAL PATCH TD SCH (10:15)
[2019-01-30] MEDS: THIAMINE HCL 100 MG TABLET (FP) PO SCH (21:25)
[2019-01-30] MEDS: MELATONIN 5 MG TABLETS PO PRN (21:25)
[2019-01-31] MEDS: metFORMIN HCL 500 MG TABLET (FP) PO SCH (06:18)
[2019-01-31] MEDS: METHADONE 160 MG, METHADONE 20 MG PO SCH (06:19)
[2019-01-31] MEDS ORDERED: METHADONE HCL 10 MG TABLET ONE (06:19)
[2019-01-31] MEDS ORDERED: METHADONE HCL 40 MG DISPERSABLE TABLET ONE (06:19)
[2019-01-31] MEDS: NICOTINE POLACRILEX 2 MG GUM BC PRN ×2 (06:20→10:13)
[2019-01-31] MEDS: NICOTINE 14 MG/24 HOURS TOPICAL PATCH TD SCH (10:13)
[2019-01-31] MEDS: FERROUS SO4 325 MG TABLET (FP) PO SCH ×2 (10:13→21:41)
[2019-01-31] MEDS: LISINOPRIL 10 MG TABLET (FP) PO SCH (10:14)
--- NOTE | 2019-01-31 16:54 | PN ---
S Progress Note Note: Vital Signs Temperature 97.7 F 01/31/19 07:31 Pulse Rate 63 01/31/19 10:00 Respiratory Rate 18 01/31/19 07:31 Blood Pressure 136/75 01/31/19 10:00 O2 Sat by Pulse Oximetry (%)
[2019-01-31] MEDS: THIAMINE HCL 100 MG TABLET (FP) PO SCH (21:41)
[2019-01-31] MEDS: MELATONIN 5 MG TABLETS PO PRN (21:41)
[2019-02-01] MEDS ORDERED: METHADONE HCL 40 MG DISPERSABLE TABLET ONE (03:20)
[2019-02-01] MEDS ORDERED: METHADONE HCL 10 MG TABLET ONE (03:20)
[2019-02-01] MEDS: metFORMIN HCL 500 MG TABLET (FP) PO SCH (06:34)
[2019-02-01] MEDS: METHADONE 160 MG, METHADONE 20 MG PO SCH (06:35)
[2019-02-01] MEDS: NICOTINE POLACRILEX 2 MG GUM BC PRN ×2 (06:35→10:07)
[2019-02-01] MEDS: FERROUS SO4 325 MG TABLET (FP) PO SCH ×2 (10:06→21:52)
[2019-02-01] MEDS: LISINOPRIL 10 MG TABLET (FP) PO SCH (10:06)
[2019-02-01] MEDS: NICOTINE 14 MG/24 HOURS TOPICAL PATCH TD SCH (10:06)
--- NOTE | 2019-02-01 11:54 | PN ---
[facility] Progress Note Note: Patient wanted here metformin discontinued because she states her fingersticks "have been good." Explained to patient that Metformin was controlling her blood glucose and if it was d/c'd, her sugars would be elevated with possible complications. Patient agreed.
--- NOTE | 2019-02-01 11:55 | PN ---
S Progress Note Note: patient c/o insomnia, melatonin increased to 10 mg. Psych consult initiated
[2019-02-01] MEDS: MELATONIN 5 MG TABLETS PO SCH (21:52)
[2019-02-01] MEDS: THIAMINE HCL 100 MG TABLET (FP) PO SCH (21:52)
[2019-02-02] MEDS ORDERED: METHADONE HCL 10 MG TABLET ONE (05:29)
[2019-02-02] MEDS ORDERED: METHADONE HCL 40 MG DISPERSABLE TABLET ONE (05:30)
[2019-02-02] MEDS: METHADONE 160 MG, METHADONE 20 MG PO SCH (06:20)
[2019-02-02] MEDS: NICOTINE POLACRILEX 2 MG GUM BC PRN ×2 (06:20→10:20)
[2019-02-02] MEDS: metFORMIN HCL 500 MG TABLET (FP) PO SCH (06:52)
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
[2019-02-02] MEDS: FERROUS SO4 325 MG TABLET (FP) PO SCH ×2 (10:18→21:45)
[2019-02-02] MEDS: LISINOPRIL 10 MG TABLET (FP) PO SCH (10:19)
[2019-02-02] MEDS: NICOTINE 14 MG/24 HOURS TOPICAL PATCH TD SCH (10:19)
[2019-02-02] MEDS: THIAMINE HCL 100 MG TABLET (FP) PO SCH (21:45)
[2019-02-02] MEDS: QUEtiapine FUMARATE 100 MG TABLET (FP) PO SCH (21:46)
[2019-02-02] MEDS: MELATONIN 5 MG TABLETS PO SCH (21:47)
[2019-02-03] MEDS ORDERED: METHADONE HCL 40 MG DISPERSABLE TABLET ONE (03:18)
[2019-02-03] MEDS ORDERED: METHADONE HCL 10 MG TABLET ONE (03:18)
[2019-02-03] MEDS: metFORMIN HCL 500 MG TABLET (FP) PO SCH (06:55)
[2019-02-03] MEDS: METHADONE 160 MG, METHADONE 20 MG PO SCH (06:55)
[2019-02-03] MEDS: NICOTINE POLACRILEX 2 MG GUM BC PRN ×3 (06:56→21:33)
[2019-02-03] MEDS: NICOTINE 14 MG/24 HOURS TOPICAL PATCH TD SCH (10:04)
[2019-02-03] MEDS: FERROUS SO4 325 MG TABLET (FP) PO SCH ×2 (10:04→21:32)
[2019-02-03] MEDS: LISINOPRIL 10 MG TABLET (FP) PO SCH (10:04)
[2019-02-03] MEDS: QUEtiapine FUMARATE 100 MG TABLET (FP) PO SCH (21:32)
[2019-02-03] MEDS: THIAMINE HCL 100 MG TABLET (FP) PO SCH (21:32)
[2019-02-03] MEDS: MELATONIN 5 MG TABLETS PO SCH (21:33)
[2019-02-04] MEDS ORDERED: METHADONE HCL 40 MG DISPERSABLE TABLET ONE (03:22)
[2019-02-04] MEDS ORDERED: METHADONE HCL 10 MG TABLET ONE (03:22)
[2019-02-04] MEDS: metFORMIN HCL 500 MG TABLET (FP) PO SCH (06:29)
[2019-02-04] MEDS: METHADONE 160 MG, METHADONE 20 MG PO SCH (06:30)
[2019-02-04] MEDS: NICOTINE POLACRILEX 2 MG GUM BC PRN ×3 (06:31→21:38)
[2019-02-04] MEDS: FERROUS SO4 325 MG TABLET (FP) PO SCH ×2 (10:02→21:37)
[2019-02-04] MEDS: NICOTINE 14 MG/24 HOURS TOPICAL PATCH TD SCH (10:03)
[2019-02-04] MEDS: LISINOPRIL 10 MG TABLET (FP) PO SCH (10:03)
[2019-02-04] MEDS: MELATONIN 5 MG TABLETS PO SCH (21:37)
[2019-02-04] MEDS: THIAMINE HCL 100 MG TABLET (FP) PO SCH (21:37)
[2019-02-04] MEDS: QUEtiapine FUMARATE 100 MG TABLET (FP) PO SCH (21:37)
[2019-02-05] MEDS ORDERED: METHADONE HCL 40 MG DISPERSABLE TABLET ONE (03:17)
[2019-02-05] MEDS ORDERED: METHADONE HCL 10 MG TABLET ONE (03:17)
[2019-02-05] MEDS: metFORMIN HCL 500 MG TABLET (FP) PO SCH (06:38)
[2019-02-05] MEDS: METHADONE 160 MG, METHADONE 20 MG PO SCH (06:38)
[2019-02-05] MEDS: NICOTINE POLACRILEX 2 MG GUM BC PRN ×2 (06:40→21:28)
[2019-02-05] MEDS: IBUPROFEN 400 MG TABLET (FP) PO PRN ×2 (08:43→21:27)
[2019-02-05] MEDS: FERROUS SO4 325 MG TABLET (FP) PO SCH ×2 (09:56→21:26)
[2019-02-05] MEDS: NICOTINE 14 MG/24 HOURS TOPICAL PATCH TD SCH (09:57)
[2019-02-05] MEDS: ACETAMINOPHEN 325 MG TABLET (FP) PO PRN (09:58)
[2019-02-05] MEDS: LISINOPRIL 10 MG TABLET (FP) PO SCH (09:59)
[2019-02-05] MEDS: THIAMINE HCL 100 MG TABLET (FP) PO SCH (21:27)
[2019-02-05] MEDS: MELATONIN 5 MG TABLETS PO SCH (21:27)
[2019-02-05] MEDS: QUEtiapine FUMARATE 100 MG TABLET (FP) PO SCH (21:27)
[2019-02-06] MEDS ORDERED: METHADONE HCL 10 MG TABLET ONE (05:50)
[2019-02-06] MEDS ORDERED: METHADONE HCL 40 MG DISPERSABLE TABLET ONE (05:51)
[2019-02-06] MEDS: METHADONE 160 MG, METHADONE 20 MG PO SCH (06:52)
[2019-02-06] MEDS: metFORMIN HCL 500 MG TABLET (FP) PO SCH (06:53)
[2019-02-06] MEDS: NICOTINE POLACRILEX 2 MG GUM BC PRN ×3 (06:54→21:23)
[2019-02-06] MEDS: FERROUS SO4 325 MG TABLET (FP) PO SCH ×2 (10:26→21:21)
[2019-02-06] MEDS: LISINOPRIL 10 MG TABLET (FP) PO SCH (10:27)
[2019-02-06] MEDS: NICOTINE 14 MG/24 HOURS TOPICAL PATCH TD SCH (10:27)
[2019-02-06] MEDS: THIAMINE HCL 100 MG TABLET (FP) PO SCH (21:21)
[2019-02-06] MEDS: QUEtiapine FUMARATE 100 MG TABLET (FP) PO SCH (21:21)
[2019-02-06] MEDS: MELATONIN 5 MG TABLETS PO SCH (21:22)
[2019-02-07] MEDS ORDERED: METHADONE HCL 10 MG TABLET ONE (03:20)
[2019-02-07] MEDS ORDERED: METHADONE HCL 40 MG DISPERSABLE TABLET ONE (03:20)
[2019-02-07] MEDS: METHADONE 160 MG, METHADONE 20 MG PO SCH (06:36)
[2019-02-07] MEDS: metFORMIN HCL 500 MG TABLET (FP) PO SCH (06:37)
[2019-02-07] MEDS: NICOTINE POLACRILEX 2 MG GUM BC PRN ×3 (06:37→17:27)
[2019-02-07] MEDS: LISINOPRIL 10 MG TABLET (FP) PO SCH (09:51)
[2019-02-07] MEDS: FERROUS SO4 325 MG TABLET (FP) PO SCH ×2 (09:51→21:38)
[2019-02-07] MEDS: NICOTINE 14 MG/24 HOURS TOPICAL PATCH TD SCH (09:51)
[2019-02-07] MEDS: QUEtiapine FUMARATE 100 MG TABLET (FP) PO SCH (21:38)
[2019-02-07] MEDS: THIAMINE HCL 100 MG TABLET (FP) PO SCH (21:38)
[2019-02-07] MEDS: MELATONIN 5 MG TABLETS PO SCH (21:39)
[2019-02-08] MEDS ORDERED: METHADONE HCL 10 MG TABLET ONE (03:18)
[2019-02-08] MEDS ORDERED: METHADONE HCL 40 MG DISPERSABLE TABLET ONE (03:18)
[2019-02-08] MEDS: NICOTINE POLACRILEX 2 MG GUM BC PRN ×2 (06:45→09:15)
[2019-02-08] MEDS: metFORMIN HCL 500 MG TABLET (FP) PO SCH (06:45)
[2019-02-08] MEDS: METHADONE 160 MG, METHADONE 20 MG PO SCH (06:45)
[2019-02-08 07:13] VITALS: TEMP 97.9
--- NOTE | 2019-02-08 08:24 | PN ---
[facility] Progress Note Note: Patient will be receiving aftercare at [facility]. She does not have a primary care provider at this time because her insurance changed. Will be arranging for primary care after discharge with MAGALIS Godoy. Patient was given a 2 week prescription for lisinopril, but states she had sufficient Metformin until she found a PCP.
[2019-02-08] MEDS: FERROUS SO4 325 MG TABLET (FP) PO SCH (09:14)
[2019-02-08 09:17] VITALS: BP 103/69; PULSE 89
[2019-02-08] MEDS: LISINOPRIL 10 MG TABLET (FP) PO SCH (09:19)
[2019-02-08] MEDS: NICOTINE 14 MG/24 HOURS TOPICAL PATCH TD SCH (09:19)
--- NOTE | 2019-02-08 09:21 | PN ---
[facility] Progress Note Note: Patient is discharged today. Script for 30 days supply of Seroquel 100 mg po HS is electronically transmitted to [facility] at [address] [place] [phone]
== END 2019-02-08 09:21 | disposition home or self-care (01) | DRG 772 ==
LOC: YASAS 16:41 → Y3E 21:41
PROVIDERS: ADMIT Neuromusculoskeletal Medicine & OMM; ATTEND Neuromusculoskeletal Medicine & OMM
PROC: HZ42ZZZ Group Counseling for Substance Abuse Treatment, Cognitive-Behavioral (ICD-10-PCS; principal; 2019-01-23)
DX: F10.20 Alcohol dependence, uncomplicated (principal); F11.20 Opioid dependence, uncomplicated; F13.20 Sedative, hypnotic or anxiolytic dependence, uncomplicated; F14.20 Cocaine dependence, uncomplicated; F17.210 Nicotine dependence, cigarettes, uncomplicated; F43.10 Post-traumatic stress disorder, unspecified; F33.1 Major depressive disorder, recurrent, moderate; F19.24 Other psychoactive substance dependence with psychoactive substance-induced mood disorder; F19.282 Other psychoactive substance dependence with psychoactive substance-induced sleep disorder; I10 Essential (primary) hypertension; B18.2 Chronic viral hepatitis C; E11.9 Type 2 diabetes mellitus without complications; G47.00 Insomnia, unspecified; Z88.6 Allergy status to analgesic agent; Z79.84 Long term (current) use of oral hypoglycemic drugs
CPT/HCPCS: 36415; 80053; 81003; 81015; 82962; 85027; 86593; 87389

== ENCOUNTER 2019-04-26 11:56 | Inpatient (IN) | payer OTHER ==
[2019-04-26 13:50] VITALS: BMI 17.5
[2019-04-26] MEDS ORDERED: MAG HYDROX/AL HYDROX/SIMETH 30 ML UNIT-DOSE CUP PO PRN (14:52)
[2019-04-26] MEDS ORDERED: hydrOXYzine PAMOATE 25 MG CAPSULE (FP) PO PRN (14:52)
[2019-04-26] MEDS ORDERED: MENTHOL/PHENOL 1 EACH UD MM PRN (14:52)
[2019-04-26] MEDS ORDERED: MAGNESIUM CITRATE 300 ML BOTTLE PO PRN (14:52)
[2019-04-26] MEDS ORDERED: ACETAMINOPHEN 325 MG TABLET (FP) PO PRN ×2 (14:52)
[2019-04-26] MEDS ORDERED: MAGNESIUM HYDROX 2400MG/30ML ORAL SUSPENSION 30 ML CUP PO PRN (14:52)
--- NOTE | 2019-04-26 14:52 | HP ---
CIWA Score Nausea/Vomitin Muscle Tremors: 2 Anxiety: 4-Mod. Anxious/Guarded Agitation: 0-Normal Activity Paroxysmal Sweats: 1-Minimal Palms Moist Orientation: 0-Oriented Tacttile Disturbances: 2-Mild Itch/Numbness/Burn Auditory Disturbances: 0-None Visual Disturbances: 0-None Headache: 3-Moderate CIWA-Ar Total Score: 15 - Admission Criteria OASAS Guidelines: Admission for Medically Managed Detox: Requires at least one of the followin. CIWA greater than 12 2. Seizures within the past 24 hours 3. Delirium tremens within the past 24 hours 4. Hallucinations within the past 24 hours 5. Acute intervention needed for co occurring medical disorder 6. Acute intervention needed for co occurring psychiatric disorder 7. Severe withdrawal that cannot be handled at a lower level of care (continued vomiting, continued diarrhea, abnormal vital signs) requiring intravenous medication and/or fluids 8. Patient presents the following: CIWA greater than 12 Admission Criteria Met: Admission criteria met Admission ROS S - HPI Chief Complaint: " I feel antsy, withdrawals" Allergies/Adverse Reactions: Allergies Allergy/AdvReac Type Severity Reaction Status Date / Time aspirin Allergy Severe Difficulty Verified 04/26/19 13:30 Breathing History of Present Illness: 49 yo female ith hx of alcohol and xanax dependence is here seeking inpatient detox d/t GABI. [facility] methadone 180 MG, last medicated today PMHX: DM II, HTN Psych: insomnia Denies SI/HI Denies hx of seizures Exam Limitations: No Limitations - Ebola screening Have you traveled outside of the country in the last 21 days: No (N) Have you had contact with anyone from an Ebola affected area: No Do you have a fever: No - Review of Systems Constitutional: Chills, Loss of Appetite, Changes in sleep EENT: reports: No Symptoms Reported Respiratory: reports: No Symptoms reported Cardiac: reports: No Symptoms Reported GI: reports: Nausea, Poor Appetite, Poor Fluid Intake : reports: Frequency Musculoskeletal: reports: Joint Pain Integumentary: reports: Pruritus Neuro: reports: Headache, Tremors, Dizziness Endocrine: reports: No Symptoms Reported Hematology: reports: No Symptoms Reported Psychiatric: reports: Orientated x3, Anxious Other Systems: Reviewed and Negative Patient History - Patient Medical History Hx Anemia: No Hx Asthma: No Hx Chronic Obstructive Pulmonary Disease (COPD): No Hx Cancer: No Hx Cardiac Disorders: No Hx Congestive Heart Failure: No Hx Hypertension: Yes (lisinopril 10mg ) Hx Hypercholesterolemia: No Hx Pacemaker: No HX Cerebrovascular Accident: No Hx Seizures: No Hx Dementia: No Hx Diabetes: Yes (type 2 on metformin 500mg ) Hx Gastrointestinal Disorders: No Hx Liver Disease: No Hx Genitourinary Disorders: No Hx Sexually Transmitted Disorders: No (denies) Hx Renal Disease (ESRD): No Hx Thyroid Disease: No Hx Human Immunodeficiency Virus (HIV): No (negative) Hx Hepatitis C: Yes (treated 6months ago; undetecable) Hx Depression: Yes Hx Suicide Attempt: Yes (2007 and 2013; denies any S/H ideation today) Hx Bipolar Disorder: Yes (PTSD on meds) Hx Schizophrenia: No - Patient Surgical History Past Surgical History: No Hx Neurologic Surgery: No Hx Cataract Extraction: No Hx Cardiac Surgery: No Hx Lung Surgery: No Hx Breast Surgery: No Hx Breast Biopsy: No Hx Abdominal Surgery: No Hx Appendectomy: No Hx Cholecystectomy: No Hx Genitourinary Surgery: No Hx Section: No Hx Orthopedic Surgery: No Anesthesia Reaction: No - PPD History Previous Implant?: No Documented Results: Negative w/proof Date: 01/05/19 Results: 0 mm PPD to be Administered?: No - Reproductive History Last Menstrual Period: 01/03/19 - Smoking Cessation Smoking history: Current every day smoker Have you smoked in the past 12 months: Yes Aproximately how many cigarettes per day: 20 Hx Chewing Tobacco Use: No Initiated information on smoking cessation: Yes 'Breaking Loose' booklet given: 04/26/19 - Substance & Tx. History Hx Alcohol Use: Yes Hx Substance Use: Yes Substance Use Type: Alcohol Hx Substance Use Treatment: Yes ( [facility] Dec 2018 Detox ) - Substances abused Alcohol Substance route: Oral Frequency: Daily Amount used: 14 x 24 oz of beer Age of first use: 12 Date of last use: 04/25/19 Cocaine Substance route: Smoking Frequency: Daily Amount used: $25 Age of first use: 18 Date of last use: 04/24/19 Alprazolam (Xanax) Substance route: Oral Frequency: Daily Amount used: 4 STICKS Age of first use: 24 Date of last use: 04/26/19 Family Disease History - Family Disease History Family Disease History: Diabetes: Grandparent (breast ca), Father, Mother ( ovarian?), Sister, [place]: Grandparent, Mother Admission Physical Exam [facility] - Vital Signs Vital Signs: Vital Signs - 24 hr 04/26/19 04/26/19 13:29 14:09 Temperature 97.6 F 97.6 F Pulse Rate 48 L 48 L Respiratory 18 18 Rate Blood Pressure 135/88 135/88 - Physical General Appearance: Yes: Appropriately Dressed, Mild Distress, Sweating, Anxious , Other (tearful) HEENTM: Yes: EOMI, Hearing grossly Normal, Normal ENT Inspection, Normocephalic , Normal Voice, HEATHER, Pharynx Normal, Tm's normal, Other (poor dentition) Respiratory: Yes: Chest Non-Tender, Lungs Clear, Normal Breath Sounds, No Respiratory Distress, No Accessory Muscle Use Neck: Yes: Within Normal Limits Breast: Yes: Breast Exam Deferred Cardiology: Yes: Regular Rhythm, Bradycardia Abdominal: Yes: Normal Bowel Sounds, Non Tender, Flat, Soft Genitourinary: Yes: Within Normal Limits Back: Yes: Normal Inspection Musculoskeletal: Yes: full range of Motion, Gait Steady, Pelvis Stable Extremities: Yes: Normal Capillary Refill, Normal Inspection, Normal Range of Motion, Non-Tender Neurological: Yes: blending operator II-XII NML intact, Fully Oriented, Alert, Motor Strength 5/5, Depressed Affect Integumentary: Yes: Normal Color, Warm, Diaphoresis Lymphatic: Yes: Within Normal Limits - Diagnostic (1) Alcohol abuse with physiological dependence Current Visit: Yes Status: Acute (2) Cocaine dependence Current Visit: Yes Status: Acute Qualifiers: Substance use status: uncomplicated Qualified Code(s): F14.20 - Cocaine dependence, uncomplicated (3) HTN (hypertension) Current Visit: Yes Status: Chronic Qualifiers: Hypertension type: essential hypertension Qualified Code(s): I10 - Essential (primary) hypertension (4) Nicotine dependence Current Visit: Yes Status: Chronic Qualifiers: Nicotine product type: cigarettes (5) Opioid dependence on agonist therapy Current Visit: Yes Status: Chronic Comment: on MMTP on 180 mg, last medicated today, dose pending verification (6) Type 2 diabetes mellitus Current Visit: Yes Status: Chronic Cleared for Admission [facility] - Detox or Rehab [facility] Level of Care: Medically Managed Detox Regimen/Protocol: Librium Breathalyzer - Breathalyzer Breathalyzer: 0 Urine Drug Screen - Test Device Lot number: [id number] Expiration date: 01/11/21 - Control Is test valid?: Yes - Results Drug screen NEGATIVE: No Urine drug screen results: VAHID-Cocaine, MTD-Methadone Inpatient Rehab Admission - Rehab Decision to Admit Inpatient rehab admission?: No
[2019-04-26] MEDS: chlordiazePOXIDE HCL 25 MG CAPSULE PO SCH ×2 (16:56→22:25)
[2019-04-26] MEDS: NICOTINE POLACRILEX 2 MG GUM BUC PRN ×2 (16:57→22:26)
[2019-04-26 18:01] LABS: HEMATOCRIT 35.4 % (32.4-45.2); HEMOGLOBIN 11.4 GM/dL (10.7-15.3); MCH 27.3 pg (25.7-33.7); MCHC 32.1 g/dl (32.0-36.0); MEAN CELL VOLUME 85.2 fl (80-96); RBC 4.15 M/mm3 (3.60-5.2); RDW 19.5 % (11.6-15.6); WHITE BLOOD COUNT 6.5 K/mm3 (4.0-10.0)
[2019-04-26 18:07] LABS: ALBUMIN 3.6 g/dl (3.4-5.0); BILIRUBIN,TOTAL 0.1 mg/dL (0.2-1); BLOOD UREA NITROGEN 6.1 mg/dL (7-18); CALCIUM 8.9 mg/dL (8.5-10.1); CREATININE 0.7 mg/dL (0.55-1.3); POTASSIUM 3.9 mmol/L (3.5-5.1); TOT PROT 7.8 g/dl (6.4-8.2)
[2019-04-26 21:33] LABS: MEAN PLT VOLUME 9.4 fl (7.5-11.1); PLATELET COUNT 242 K/MM3 (134-434)
[2019-04-26] MEDS ORDERED: QUEtiapine FUMARATE 50 MG TABLET PO ONE (22:00)
[2019-04-26] MEDS: THIAMINE HCL 100 MG TABLET (FP) PO SCH (22:24)
[2019-04-27] MEDS ORDERED: METHADONE HCL 10 MG TABLET ONE (05:01)
[2019-04-27] MEDS ORDERED: METHADONE HCL 40 MG DISPERSABLE TABLET ONE (05:01)
[2019-04-27] MEDS: METHADONE 160 MG, METHADONE 30 MG PO SCH (05:58)
[2019-04-27] MEDS: chlordiazePOXIDE HCL 25 MG CAPSULE PO SCH ×4 (05:58→22:21)
[2019-04-27] MEDS ORDERED: METHADONE HCL 10 MG TABLET PO SCH (06:00)
[2019-04-27] MEDS: metFORMIN HCL 500 MG TABLET (FP) PO SCH (07:55)
[2019-04-27] MEDS: NICOTINE 14 MG/24 HOURS TOPICAL PATCH TD SCH (10:41)
[2019-04-27] MEDS: LISINOPRIL 10 MG TABLET (FP) PO SCH (10:41)
[2019-04-27] MEDS: PRENATAL VITAMINS W/ FOLIC ACID TABLET (FP) PO SCH (10:41)
[2019-04-27] MEDS: METHOCARBAMOL 500 MG TABLET PO PRN (10:42)
[2019-04-27] MEDS: NICOTINE POLACRILEX 2 MG GUM BUC PRN ×3 (10:42→22:21)
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
--- NOTE | 2019-04-27 15:16 | PN ---
S CIWA - CIWA Score Nausea/Vomitin Muscle Tremors: 3 Anxiety: 3 Agitation: 1-Slight > Activity Paroxysmal Sweats: No Perspiration Orientation: 0-Oriented Tacttile Disturbances: 2-Mild Itch/Numbness/Burn Auditory Disturbances: 0-None Visual Disturbances: 3-Moderate Sensitivity Headache: 0-None Present CIWA-Ar Total Score: 14 BHS Progress Note (SOAP) Subjective: Anxious, Tremors, Nausea. Objective: PATIENT A & O X 3. IN NO ACUTE DISTRESS. 04/27/19 15:15 Vital Signs Temperature 98.1 F 04/27/19 09:42 Pulse Rate 67 04/27/19 09:42 Respiratory Rate 16 04/27/19 09:42 Blood Pressure 118/67 04/27/19 09:42 O2 Sat by Pulse Oximetry (%) Laboratory Tests 04/26/19 04/26/19 04/26/19 15:00 15:00 15:00 WBC 6.5 RBC 4.15 Hgb 11.4 Hct 35.4 D MCV 85.2 MCH 27.3 MCHC 32.1 RDW 19.5 H Plt Count 242 MPV 9.4 Platelet Comment Sodium 143 Potassium 3.9 Chloride 102 Carbon Dioxide 35 H Anion Gap 5 L BUN 6.1 L Creatinine 0.7 Est GFR (CKD-EPI)AfAm 117.09 Est GFR (CKD-EPI)NonAf 101.02 POC Glucometer Random Glucose 112 H Calcium 8.9 Total Bilirubin 0.1 L AST 25 ALT 26 Alkaline Phosphatase 96 Total Protein 7.8 Albumin 3.6 RPR Titer Nonreactive 04/26/19 04/27/19 04/27/19 15:42 05:54 07:14 WBC RBC Hgb Hct MCV MCH MCHC RDW Plt Count MPV Platelet Comment Sodium Potassium Chloride Carbon Dioxide Anion Gap BUN Creatinine Est GFR (CKD-EPI)AfAm Est GFR (CKD-EPI)NonAf POC Glucometer 100 68 86 Random Glucose Calcium Total Bilirubin AST ALT Alkaline Phosphatase Total Protein Albumin RPR Titer LABS NOTED. Assessment: 04/27/19 15:16 WITHDRAWAL SYMPTOMS. Plan: CONTINUE DETOX.
[2019-04-27] MEDS: chlordiazePOXIDE HCL 25 MG CAPSULE PO PRN (15:36)
[2019-04-27 19:18] LABS: EPI CELLS 15.4 /HPF (0-5/HPF); HYALINE CASTS 36 /lpf (0-8); URINE APPEARANCE CLEAR; URINE BACTERIA 940.7 /hpf (NEGATIVE); URINE BILIRUBIN NEGATIVE (NEGATIVE); URINE COLOR YELLOW; URINE GLUCOSE (UA) NEGATIVE (NEGATIVE); URINE KETONE NEGATIVE (NEGATIVE); URINE LEUK ESTERASE NEGATIVE (NEGATIVE); URINE NITRITE POSITIVE (NEGATIVE); URINE PROTEIN NEGATIVE (NEGATIVE); URINE RBC 6 /hpf (0-4); URINE WBC 3 /hpf (0-5)
[2019-04-27] MEDS: QUEtiapine FUMARATE 100 MG TABLET (FP) PO SCH (22:21)
[2019-04-27] MEDS: THIAMINE HCL 100 MG TABLET (FP) PO SCH (22:21)
[2019-04-28] MEDS ORDERED: METHADONE HCL 10 MG TABLET ONE (05:02)
[2019-04-28] MEDS ORDERED: METHADONE HCL 40 MG DISPERSABLE TABLET ONE (05:03)
[2019-04-28] MEDS: METHADONE 160 MG, METHADONE 30 MG PO SCH (05:54)
[2019-04-28] MEDS: chlordiazePOXIDE HCL 25 MG CAPSULE PO SCH ×2 (05:55→10:48)
[2019-04-28] MEDS: NICOTINE POLACRILEX 2 MG GUM BUC PRN ×4 (05:58→22:08)
[2019-04-28] MEDS: metFORMIN HCL 500 MG TABLET (FP) PO SCH (08:16)
[2019-04-28] MEDS: PRENATAL VITAMINS W/ FOLIC ACID TABLET (FP) PO SCH (10:48)
[2019-04-28] MEDS: NICOTINE 14 MG/24 HOURS TOPICAL PATCH TD SCH (10:48)
[2019-04-28] MEDS: LISINOPRIL 10 MG TABLET (FP) PO SCH (10:48)
--- NOTE | 2019-04-28 14:14 | PN ---
S CIWA - CIWA Score Nausea/Vomitin-Mild Nausea/No Vomiting Muscle Tremors: 2 Anxiety: 2 Agitation: 2 Paroxysmal Sweats: 2 Orientation: 0-Oriented Tacttile Disturbances: 0-None Auditory Disturbances: 0-None Visual Disturbances: 0-None Headache: 2-Mild CIWA-Ar Total Score: 11 S Progress Note (SOAP) Subjective: c/o nausea, sweats, headache, and shakes. Objective: 04/28/19 14:13 Vital Signs 04/28/19 04/28/19 04/28/19 06:30 09:49 13:56 Temperature 96.7 F L 98.6 F 97.5 F L Pulse Rate 65 61 66 Respiratory 18 17 18 Rate Blood Pressure 111/65 107/69 105/60 Abnormal Lab Results 04/27/19 16:12 Ur Specific [place] 1.007 L Urine Nitrite Positive H Lab Results WBC 6.5 K/mm3 (4.0-10.0) 04/26/19 15:00 RBC 4.15 M/mm3 (3.60-5.2) 04/26/19 15:00 Hgb 11.4 GM/dL (10.7-15.3) 04/26/19 15:00 Hct 35.4 % (32.4-45.2) D 04/26/19 15:00 MCV 85.2 fl (80-96) 04/26/19 15:00 MCHC 32.1 g/dl (32.0-36.0) 04/26/19 15:00 RDW 19.5 % (11.6-15.6) H 04/26/19 15:00 Plt Count 242 K/MM3 (134-434) 04/26/19 15:00 Sodium 143 mmol/L (136-145) 04/26/19 15:00 Potassium 3.9 mmol/L (3.5-5.1) 04/26/19 15:00 Chloride 102 mmol/L (98-107) 04/26/19 15:00 Carbon Dioxide 35 mmol/L (21-32) H 04/26/19 15:00 Anion Gap 5 MMOL/L (8-16) L 04/26/19 15:00 BUN 6.1 mg/dL (7-18) L 04/26/19 15:00 Creatinine 0.7 mg/dL (0.55-1.3) 04/26/19 15:00 Random Glucose 112 mg/dL (74-106) H 04/26/19 15:00 Calcium 8.9 mg/dL (8.5-10.1) 04/26/19 15:00 Labs noted. Assessment: 04/28/19 14:13 AOX3, in no acute distress Full ROM, ambulating in the unit. Withdrawal symptoms. Plan: continue detox. increase fluids.
[2019-04-28] MEDS: chlordiazePOXIDE HCL 25 MG CAPSULE PO PRN (15:43)
[2019-04-28] MEDS ORDERED: chlordiazePOXIDE HCL 10 MG CAPSULE PO PRN (17:00)
[2019-04-28] MEDS: chlordiazePOXIDE HCL 10 MG CAPSULE PO SCH ×2 (17:53→22:08)
[2019-04-28] MEDS: QUEtiapine FUMARATE 100 MG TABLET (FP) PO SCH (22:07)
[2019-04-28] MEDS: THIAMINE HCL 100 MG TABLET (FP) PO SCH (22:07)
[2019-04-28] MEDS: MELATONIN 5 MG TABLETS PO PRN (22:08)
[2019-04-29] MEDS ORDERED: METHADONE HCL 40 MG DISPERSABLE TABLET ONE (04:48)
[2019-04-29] MEDS ORDERED: METHADONE HCL 10 MG TABLET ONE (04:48)
[2019-04-29] MEDS: METHADONE 160 MG, METHADONE 30 MG PO SCH (05:35)
[2019-04-29] MEDS: chlordiazePOXIDE HCL 10 MG CAPSULE PO SCH ×3 (05:36→17:46)
[2019-04-29] MEDS: metFORMIN HCL 500 MG TABLET (FP) PO SCH (08:28)
[2019-04-29] MEDS: PRENATAL VITAMINS W/ FOLIC ACID TABLET (FP) PO SCH (10:37)
[2019-04-29] MEDS: LISINOPRIL 10 MG TABLET (FP) PO SCH (10:37)
[2019-04-29] MEDS: NICOTINE 14 MG/24 HOURS TOPICAL PATCH TD SCH (10:37)
[2019-04-29] MEDS: NICOTINE POLACRILEX 2 MG GUM BUC PRN ×2 (10:38→17:47)
--- NOTE | 2019-04-29 14:53 | PN ---
S CIWA - CIWA Score Nausea/Vomitin-Mild Nausea/No Vomiting Muscle Tremors: 2 Anxiety: 2 Agitation: 3 Paroxysmal Sweats: No Perspiration Orientation: 0-Oriented Tacttile Disturbances: 0-None Auditory Disturbances: 0-None Visual Disturbances: 1-Very Mild Sensitivity Headache: 0-None Present CIWA-Ar Total Score: 9 BHS Progress Note (SOAP) Subjective: POOR SLEEP, ANXIOUS, GI UPSET DENIES DYSURIA/POLYPURIA Objective: 04/29/19 14:52 Laboratory Tests 04/26/19 04/26/19 04/26/19 15:00 15:00 15:00 WBC 6.5 RBC 4.15 Hgb 11.4 Hct 35.4 D MCV 85.2 MCH 27.3 MCHC 32.1 RDW 19.5 H Plt Count 242 MPV 9.4 Platelet Comment Sodium 143 Potassium 3.9 Chloride 102 Carbon Dioxide 35 H Anion Gap 5 L BUN 6.1 L Creatinine 0.7 Est GFR (CKD-EPI)AfAm 117.09 Est GFR (CKD-EPI)NonAf 101.02 POC Glucometer Random Glucose 112 H Calcium 8.9 Total Bilirubin 0.1 L AST 25 ALT 26 Alkaline Phosphatase 96 Total Protein 7.8 Albumin 3.6 Urine Color Urine Appearance Urine pH Ur Specific [place] Urine Protein Urine Glucose (UA) Urine Ketones Urine Blood Urine Nitrite Urine Bilirubin Urine Urobilinogen Ur Leukocyte Esterase Urine WBC (Auto) Urine RBC (Auto) Urine Casts (Auto) U Pathogenic Cast Auto U Epithel Cells (Auto) Urine Bacteria (Auto) RPR Titer Nonreactive 04/26/19 04/27/19 04/27/19 15:42 05:54 07:14 WBC RBC Hgb Hct MCV MCH MCHC RDW Plt Count MPV Platelet Comment Sodium Potassium Chloride Carbon Dioxide Anion Gap BUN Creatinine Est GFR (CKD-EPI)AfAm Est GFR (CKD-EPI)NonAf POC Glucometer 100 68 86 Random Glucose Calcium Total Bilirubin AST ALT Alkaline Phosphatase Total Protein Albumin Urine Color Urine Appearance Urine pH Ur Specific [place] Urine Protein Urine Glucose (UA) Urine Ketones Urine Blood Urine Nitrite Urine Bilirubin Urine Urobilinogen Ur Leukocyte Esterase Urine WBC (Auto) Urine RBC (Auto) Urine Casts (Auto) U Pathogenic Cast Auto U Epithel Cells (Auto) Urine Bacteria (Auto) RPR Titer 04/27/19 04/27/19 04/28/19 16:12 16:22 05:53 WBC RBC Hgb Hct MCV MCH MCHC RDW Plt Count MPV Platelet Comment Sodium Potassium Chloride Carbon Dioxide Anion Gap BUN Creatinine Est GFR (CKD-EPI)AfAm Est GFR (CKD-EPI)NonAf POC Glucometer 101 64 Random Glucose Calcium Total Bilirubin AST ALT Alkaline Phosphatase Total Protein Albumin Urine Color Yellow Urine Appearance Clear Urine pH 8.0 D Ur Specific [place] 1.007 L Urine Protein Negative Urine Glucose (UA) Negative Urine Ketones Negative Urine Blood Negative Urine Nitrite Positive H Urine Bilirubin Negative Urine Urobilinogen 1.0 Ur Leukocyte Esterase Negative Urine WBC (Auto) 3 Urine RBC (Auto) 6 Urine Casts (Auto) 36 U Pathogenic Cast Auto None U Epithel Cells (Auto) 15.4 Urine Bacteria (Auto) 940.7 RPR Titer 04/28/19 04/28/19 04/29/19 11:10 16:55 05:35 WBC RBC Hgb Hct MCV MCH MCHC RDW Plt Count MPV Platelet Comment Sodium Potassium Chloride Carbon Dioxide Anion Gap BUN Creatinine Est GFR (CKD-EPI)AfAm Est GFR (CKD-EPI)NonAf POC Glucometer 170 111 97 Random Glucose Calcium Total Bilirubin AST ALT Alkaline Phosphatase Total Protein Albumin Urine Color Urine Appearance Urine pH Ur Specific [place] Urine Protein Urine Glucose (UA) Urine Ketones Urine Blood Urine Nitrite Urine Bilirubin Urine Urobilinogen Ur Leukocyte Esterase Urine WBC (Auto) Urine RBC (Auto) Urine Casts (Auto) U Pathogenic Cast Auto U Epithel Cells (Auto) Urine Bacteria (Auto) RPR Titer 04/29/19 11:36 WBC RBC Hgb Hct MCV MCH MCHC RDW Plt Count MPV Platelet Comment Sodium Potassium Chloride Carbon Dioxide Anion Gap BUN Creatinine Est GFR (CKD-EPI)AfAm Est GFR (CKD-EPI)NonAf POC Glucometer 141 Random Glucose Calcium Total Bilirubin AST ALT Alkaline Phosphatase Total Protein Albumin Urine Color Urine Appearance Urine pH Ur Specific [place] Urine Protein Urine Glucose (UA) Urine Ketones Urine Blood Urine Nitrite Urine Bilirubin Urine Urobilinogen Ur Leukocyte Esterase Urine WBC (Auto) Urine RBC (Auto) Urine Casts (Auto) U Pathogenic Cast Auto U Epithel Cells (Auto) Urine Bacteria (Auto) RPR Titer Vital Signs - 24 hr 04/28/19 04/28/19 04/29/19 18:22 21:56 00:30 Temperature 98.7 F 99.5 F Pulse Rate 58 L 59 L Respiratory 18 16 18 Rate Blood Pressure 126/79 129/79 04/29/19 04/29/19 04/29/19 03:30 06:51 09:15 Temperature 97.3 F L 96.4 F L Pulse Rate 59 L 62 Respiratory 18 18 16 Rate Blood Pressure 110/68 110/71 04/29/19 13:23 Temperature 96.7 F L Pulse Rate 73 Respiratory 18 Rate Blood Pressure 111/61 ALERT AMBULATING AND ORIENTED Assessment: ACUTE WITHDRAWAL Plan: COMPLETE DETOX PROTOCOL
[2019-04-29 22:37] LABS: URINE APPEARANCE CLEAR; URINE BILIRUBIN NEGATIVE (NEGATIVE); URINE COLOR YELLOW; URINE GLUCOSE (UA) NEGATIVE (NEGATIVE); URINE KETONE NEGATIVE (NEGATIVE); URINE LEUK ESTERASE 1+ (NEGATIVE); URINE NITRITE NEGATIVE (NEGATIVE); URINE PROTEIN TRACE (NEGATIVE)
[2019-04-29] MEDS: THIAMINE HCL 100 MG TABLET (FP) PO SCH (22:53)
[2019-04-29] MEDS: QUEtiapine FUMARATE 100 MG TABLET (FP) PO SCH (22:53)
[2019-04-29] MEDS: METHOCARBAMOL 500 MG TABLET PO PRN (22:53)
[2019-04-29] MEDS: MELATONIN 5 MG TABLETS PO PRN (22:54)
[2019-04-29 23:03] LABS: URINE BACTERIA MANY /hpf (NEGATIVE)
[2019-04-30] MEDS ORDERED: METHADONE HCL 10 MG TABLET ONE (04:40)
[2019-04-30] MEDS ORDERED: METHADONE HCL 40 MG DISPERSABLE TABLET ONE (04:41)
[2019-04-30] MEDS: chlordiazePOXIDE HCL 10 MG CAPSULE PO SCH (05:54)
[2019-04-30] MEDS: METHADONE 160 MG, METHADONE 30 MG PO SCH (05:54)
[2019-04-30] MEDS: NICOTINE POLACRILEX 2 MG GUM BUC PRN ×2 (05:56→10:29)
[2019-04-30] MEDS: metFORMIN HCL 500 MG TABLET (FP) PO SCH (08:17)
[2019-04-30 09:45] VITALS: BP 118/78; PULSE 69; TEMP 98.1
[2019-04-30] MEDS: LISINOPRIL 10 MG TABLET (FP) PO SCH (10:27)
[2019-04-30] MEDS: PRENATAL VITAMINS W/ FOLIC ACID TABLET (FP) PO SCH (10:27)
[2019-04-30] MEDS: NICOTINE 14 MG/24 HOURS TOPICAL PATCH TD SCH (10:29)
--- NOTE | 2019-04-30 15:48 | DS ---
[facility] Detox Discharge Summary Admission Date: 04/26/19 Discharge Date: 04/30/19 - History Present History: Alcohol Dependence, Cocaine Dependence, Sedative Dependence Additional Comments: PATIENT GOING TO [facility] ([facility]enee PEREZ) FOR AFTERCARE. PATIENT WAS DISCHARGED FROM DETOX UNIT TO BE TAKEN OVER TO REHAB UNIT IN STABLE MEDICAL CONDITION. Pertinent Past History: HTN, Nicotine Dependence, M.M.T.P., Type II DM, Insomnia, Hep C (Treated), Bipolar Disorder, Depression, Post-Traumatic Stress Disorder, Insomnia. - Physical Exam Results Vital Signs: Vital Signs Temperature 98.1 F 04/30/19 09:44 Pulse Rate 69 04/30/19 09:44 Respiratory Rate 18 04/30/19 09:44 Blood Pressure 118/78 04/30/19 09:44 O2 Sat by Pulse Oximetry (%) Pertinent Admission Physical Exam Findings: WITHDRAWAL SYMPTOMS. Laboratory Tests 04/26/19 04/26/19 04/26/19 15:00 15:00 15:00 WBC 6.5 RBC 4.15 Hgb 11.4 Hct 35.4 D MCV 85.2 MCH 27.3 MCHC 32.1 RDW 19.5 H Plt Count 242 MPV 9.4 Platelet Comment Sodium 143 Potassium 3.9 Chloride 102 Carbon Dioxide 35 H Anion Gap 5 L BUN 6.1 L Creatinine 0.7 Est GFR (CKD-EPI)AfAm 117.09 Est GFR (CKD-EPI)NonAf 101.02 POC Glucometer Random Glucose 112 H Calcium 8.9 Total Bilirubin 0.1 L AST 25 ALT 26 Alkaline Phosphatase 96 Total Protein 7.8 Albumin 3.6 Urine Color Urine Appearance Urine pH Ur Specific [place] Urine Protein Urine Glucose (UA) Urine Ketones Urine Blood Urine Nitrite Urine Bilirubin Urine Urobilinogen Ur Leukocyte Esterase Urine WBC (Auto) Urine RBC (Auto) Urine Casts (Auto) U Pathogenic Cast Auto U Epithel Cells (Auto) Urine Bacteria (Auto) RPR Titer Nonreactive 04/26/19 04/27/19 04/27/19 15:42 05:54 07:14 WBC RBC Hgb Hct MCV MCH MCHC RDW Plt Count MPV Platelet Comment Sodium Potassium Chloride Carbon Dioxide Anion Gap BUN Creatinine Est GFR (CKD-EPI)AfAm Est GFR (CKD-EPI)NonAf POC Glucometer 100 68 86 Random Glucose Calcium Total Bilirubin AST ALT Alkaline Phosphatase Total Protein Albumin Urine Color Urine Appearance Urine pH Ur Specific [place] Urine Protein Urine Glucose (UA) Urine Ketones Urine Blood Urine Nitrite Urine Bilirubin Urine Urobilinogen Ur Leukocyte Esterase Urine WBC (Auto) Urine RBC (Auto) Urine Casts (Auto) U Pathogenic Cast Auto U Epithel Cells (Auto) Urine Bacteria (Auto) RPR Titer 04/27/19 04/27/19 04/28/19 16:12 16:22 05:53 WBC RBC Hgb Hct MCV MCH MCHC RDW Plt Count MPV Platelet Comment Sodium Potassium Chloride Carbon Dioxide Anion Gap BUN Creatinine Est GFR (CKD-EPI)AfAm Est GFR (CKD-EPI)NonAf POC Glucometer 101 64 Random Glucose Calcium Total Bilirubin AST ALT Alkaline Phosphatase Total Protein Albumin Urine Color Yellow Urine Appearance Clear Urine pH 8.0 D Ur Specific [place] 1.007 L Urine Protein Negative Urine Glucose (UA) Negative Urine Ketones Negative Urine Blood Negative Urine Nitrite Positive H Urine Bilirubin Negative Urine Urobilinogen 1.0 Ur Leukocyte Esterase Negative Urine WBC (Auto) 3 Urine RBC (Auto) 6 Urine Casts (Auto) 36 U Pathogenic Cast Auto None U Epithel Cells (Auto) 15.4 Urine Bacteria (Auto) 940.7 RPR Titer 04/28/19 04/28/19 04/29/19 11:10 16:55 05:35 WBC RBC Hgb Hct MCV MCH MCHC RDW Plt Count MPV Platelet Comment Sodium Potassium Chloride Carbon Dioxide Anion Gap BUN Creatinine Est GFR (CKD-EPI)AfAm Est GFR (CKD-EPI)NonAf POC Glucometer 170 111 97 Random Glucose Calcium Total Bilirubin AST ALT Alkaline Phosphatase Total Protein Albumin Urine Color Urine Appearance Urine pH Ur Specific [place] Urine Protein Urine Glucose (UA) Urine Ketones Urine Blood Urine Nitrite Urine Bilirubin Urine Urobilinogen Ur Leukocyte Esterase Urine WBC (Auto) Urine RBC (Auto) Urine Casts (Auto) U Pathogenic Cast Auto U Epithel Cells (Auto) Urine Bacteria (Auto) RPR Titer 04/29/19 04/29/19 04/29/19 11:36 16:00 16:36 WBC RBC Hgb Hct MCV MCH MCHC RDW Plt Count MPV Platelet Comment Sodium Potassium Chloride Carbon Dioxide Anion Gap BUN Creatinine Est GFR (CKD-EPI)AfAm Est GFR (CKD-EPI)NonAf POC Glucometer 141 87 Random Glucose Calcium Total Bilirubin AST ALT Alkaline Phosphatase Total Protein Albumin Urine Color Yellow Urine Appearance Clear Urine pH 7.0 Ur Specific [place] 1.020 Urine Protein Trace Urine Glucose (UA) Negative Urine Ketones Negative Urine Blood 3+ H Urine Nitrite Negative Urine Bilirubin Negative Urine Urobilinogen 1.0 Ur Leukocyte Esterase 1+ H Urine WBC (Auto) 10-20 Urine RBC (Auto) 5-10 Urine Casts (Auto) None U Pathogenic Cast Auto None U Epithel Cells (Auto) 10-20 Urine Bacteria (Auto) Many RPR Titer 04/30/19 05:53 WBC RBC Hgb Hct MCV MCH MCHC RDW Plt Count MPV Platelet Comment Sodium Potassium Chloride Carbon Dioxide Anion Gap BUN Creatinine Est GFR (CKD-EPI)AfAm Est GFR (CKD-EPI)NonAf POC Glucometer 81 Random Glucose Calcium Total Bilirubin AST ALT Alkaline Phosphatase Total Protein Albumin Urine Color Urine Appearance Urine pH Ur Specific [place] Urine Protein Urine Glucose (UA) Urine Ketones Urine Blood Urine Nitrite Urine Bilirubin Urine Urobilinogen Ur Leukocyte Esterase Urine WBC (Auto) Urine RBC (Auto) Urine Casts (Auto) U Pathogenic Cast Auto U Epithel Cells (Auto) Urine Bacteria (Auto) RPR Titer LABS NOTED. - Treatment Hospital Course: Detox Protocol Followed, Detoxed Safely, Responded well, Discharged Condition Good, Rehab Referral Accepted Patient has Accepted a Rehab Referral to: [facility] ([place], [place]). - Medication Discharge Medications: Ambulatory Orders Metformin HCl [Glucophage] 500 mg PO DAILY 01/03/19 Lisinopril [Prinivil] 10 mg PO DAILY 14 Days #14 tablet 02/08/19 Quetiapine Fumarate [Seroquel] 100 mg PO HS #30 tablet 02/08/19 - Diagnosis (1) Alcohol abuse with physiological dependence Status: Acute (2) Cocaine dependence Status: Chronic Qualifiers: Substance use status: uncomplicated Qualified Code(s): F14.20 - Cocaine dependence, uncomplicated (3) HTN (hypertension) Status: Chronic Qualifiers: Hypertension type: essential hypertension Qualified Code(s): I10 - Essential (primary) hypertension (4) Nicotine dependence Status: Chronic Qualifiers: Nicotine product type: cigarettes Substance use status: uncomplicated Qualified Code(s): F17.210 - Nicotine dependence, cigarettes, uncomplicated (5) Opioid dependence on agonist therapy Status: Chronic (6) Type 2 diabetes mellitus Status: Chronic Qualifiers: Diabetes mellitus longterm insulin use: without longterm use Diabetes mellitus complication status: with other specified complication Qualified Code (s): E11.69 - Type 2 diabetes mellitus with other specified complication (7) Insomnia Status: Chronic Qualifiers: Insomnia type: unspecified Qualified Code(s): G47.00 - Insomnia, unspecified (8) Non-compliance Status: Chronic (9) PTSD (post-traumatic stress disorder) Status: Chronic (10) Substance induced mood disorder Status: Chronic (11) Sedative hypnotic or anxiolytic dependence Status: Acute - AMA Did Patient Leave Against Medical Advice: No
== END 2019-04-30 14:26 | disposition other institution (70) | DRG 773 ==
LOC: YASAS 11:56 → Y3N 15:34
PROVIDERS: ADMIT Surgery; ATTEND Surgery
PROC: HZ2ZZZZ Detoxification Services for Substance Abuse Treatment (ICD-10-PCS; principal; 2019-04-26)
DX: F10.230 Alcohol dependence with withdrawal, uncomplicated (principal); F11.20 Opioid dependence, uncomplicated; F13.20 Sedative, hypnotic or anxiolytic dependence, uncomplicated; F14.20 Cocaine dependence, uncomplicated; F17.210 Nicotine dependence, cigarettes, uncomplicated; F19.24 Other psychoactive substance dependence with psychoactive substance-induced mood disorder; F31.9 Bipolar disorder, unspecified; F43.10 Post-traumatic stress disorder, unspecified; E11.9 Type 2 diabetes mellitus without complications; I10 Essential (primary) hypertension; G47.00 Insomnia, unspecified; B18.2 Chronic viral hepatitis C; Z91.5 Personal history of self-harm; Z91.19 Patient's noncompliance with other medical treatment and regimen; Z79.84 Long term (current) use of oral hypoglycemic drugs
CPT/HCPCS: 36415; 80053; 81003; 82962; 85027; 86593

== ENCOUNTER 2019-04-30 13:56 | Inpatient (IN) | payer OTHER ==
[2019-04-30] MEDS ORDERED: NICOTINE POLACRILEX 2 MG GUM BUC PRN (15:52)
[2019-04-30] MEDS ORDERED: P-EPHED 60MG/TRIPROLIDI 2.5MG TABLET PO PRN (15:52)
[2019-04-30] MEDS ORDERED: MENTHOL/PHENOL 1 EACH UD MM PRN (15:52)
[2019-04-30] MEDS ORDERED: MAGNESIUM HYDROX 2400MG/30ML ORAL SUSPENSION 30 ML CUP PO PRN (15:52)
[2019-04-30] MEDS ORDERED: MAGNESIUM CITRATE 300 ML BOTTLE PO PRN (15:52)
[2019-04-30] MEDS ORDERED: guaiFENesin 200 MG/10 ML 10 ML UNIT-DOSE CUPS PO PRN (15:52)
[2019-04-30] MEDS ORDERED: LOPERAMIDE HCL 2 MG CAPSULE PO PRN (15:52)
--- NOTE | 2019-04-30 15:55 | HP ---
JULIAN GARCIA Rehab Assess/Revision - Admission History Admitted to Rehab from: [facility] Date of Admission to Rehab: 04/30/2019 - Vital signs Vital Signs: Vital Signs Period Temp Pulse Resp BP Sys/Nolasco Pulse Ox Last 24 Hr 97.9 F 67 18 132/79 - Findings Detox History & Physical reviewed: Yes Concur with findings: Yes Comments/Additional Findings: PATIENT'S MEDICAL / MEDICATION HISTORY REVIEWED PRIOR TO DISCHARGE FROM DETOX UNIT. PATIENT WAS DISCHARGED FROM DETOX UNIT TO BE TAKEN OVER TO REHAB UNIT IN STABLE MEDICAL CONDITION. Inpatient Rehab Admission - Rehab Decision to Admit Inpatient rehab admission?: Yes - Initial Determination Are CD services needed?: Yes Free of communicable disease: Yes Not in need of hospitalization: Yes - Rehab Admission Criteria Previous failed treatment: Yes Poor recovery environment: Yes Comorbidities: Yes Lacks judgement: No Patient is meeting Inpatient Rehab admission criteria:: Yes
--- NOTE | 2019-04-30 16:58 | PN ---
[facility] Progress Note Note: Psychiatry Attending's note : Discharged from [address] [place] [address]. Transferred to [address] Resume seroquel 100 mg po hs. Continuity of care.
[2019-04-30] MEDS: THIAMINE HCL 100 MG TABLET (FP) PO SCH (21:37)
[2019-04-30] MEDS: QUEtiapine FUMARATE 100 MG TABLET (FP) PO SCH (21:39)
[2019-05-01] MEDS ORDERED: METHADONE HCL 10 MG TABLET PO SCH (06:00)
[2019-05-01] MEDS ORDERED: METHADONE HCL 10 MG TABLET ONE (06:24)
[2019-05-01] MEDS ORDERED: METHADONE HCL 40 MG DISPERSABLE TABLET ONE (06:24)
[2019-05-01] MEDS: metFORMIN HCL 500 MG TABLET (FP) PO SCH (06:26)
[2019-05-01] MEDS: METHADONE 160 MG, METHADONE 30 MG PO SCH (06:26)
[2019-05-01] MEDS: NICOTINE POLACRILEX 2 MG GUM BUC PRN ×3 (06:27→21:40)
[2019-05-01] MEDS: PRENATAL VITAMINS W/ FOLIC ACID TABLET (FP) PO SCH (10:12)
[2019-05-01] MEDS: LISINOPRIL 10 MG TABLET (FP) PO SCH (10:12)
[2019-05-01] MEDS: NICOTINE 14 MG/24 HOURS TOPICAL PATCH TD SCH (10:12)
[2019-05-01] MEDS: MAG HYDROX/AL HYDROX/SIMETH 30 ML UNIT-DOSE CUP PO PRN (13:17)
[2019-05-01] MEDS: hydrOXYzine PAMOATE 50 MG CAPSULE (FP) PO PRN ×2 (16:16→21:39)
[2019-05-01] MEDS: QUEtiapine FUMARATE 100 MG TABLET (FP) PO SCH (21:39)
[2019-05-01] MEDS: THIAMINE HCL 100 MG TABLET (FP) PO SCH (21:39)
[2019-05-02] MEDS ORDERED: METHADONE HCL 10 MG TABLET ONE (06:14)
[2019-05-02] MEDS ORDERED: METHADONE HCL 40 MG DISPERSABLE TABLET ONE (06:15)
[2019-05-02] MEDS: METHADONE 160 MG, METHADONE 30 MG PO SCH (06:23)
[2019-05-02] MEDS: metFORMIN HCL 500 MG TABLET (FP) PO SCH (06:24)
[2019-05-02] MEDS: NICOTINE POLACRILEX 2 MG GUM BUC PRN ×5 (06:25→21:42)
[2019-05-02] MEDS: NICOTINE 14 MG/24 HOURS TOPICAL PATCH TD SCH (10:20)
[2019-05-02] MEDS: LISINOPRIL 10 MG TABLET (FP) PO SCH (10:20)
[2019-05-02] MEDS: PRENATAL VITAMINS W/ FOLIC ACID TABLET (FP) PO SCH (10:20)
[2019-05-02] MEDS: hydrOXYzine PAMOATE 50 MG CAPSULE (FP) PO PRN ×2 (10:22→18:58)
[2019-05-02] MEDS: MELATONIN 5 MG TABLETS PO PRN (21:41)
[2019-05-02] MEDS: THIAMINE HCL 100 MG TABLET (FP) PO SCH (21:41)
[2019-05-02] MEDS: QUEtiapine FUMARATE 100 MG TABLET (FP) PO SCH (21:41)
[2019-05-03] MEDS ORDERED: METHADONE HCL 40 MG DISPERSABLE TABLET ONE (06:17)
[2019-05-03] MEDS ORDERED: METHADONE HCL 10 MG TABLET ONE (06:17)
[2019-05-03] MEDS: METHADONE 160 MG, METHADONE 30 MG PO SCH (06:20)
[2019-05-03] MEDS: NICOTINE POLACRILEX 2 MG GUM BUC PRN ×3 (06:21→17:25)
[2019-05-03] MEDS: metFORMIN HCL 500 MG TABLET (FP) PO SCH (06:21)
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
[2019-05-03] MEDS: LISINOPRIL 10 MG TABLET (FP) PO SCH (09:53)
[2019-05-03] MEDS: PRENATAL VITAMINS W/ FOLIC ACID TABLET (FP) PO SCH (09:53)
[2019-05-03] MEDS: hydrOXYzine PAMOATE 50 MG CAPSULE (FP) PO PRN ×2 (09:54→21:44)
[2019-05-03] MEDS: GABAPENTIN 300 MG CAPSULE (FP) PO SCH ×2 (10:13→21:44)
[2019-05-03] MEDS: NICOTINE 14 MG/24 HOURS TOPICAL PATCH TD SCH (10:13)
[2019-05-03] MEDS: THIAMINE HCL 100 MG TABLET (FP) PO SCH (21:44)
[2019-05-03] MEDS: QUEtiapine FUMARATE 50 MG TABLET PO SCH (21:45)
[2019-05-04] MEDS ORDERED: METHADONE HCL 10 MG TABLET ONE (06:24)
[2019-05-04] MEDS: metFORMIN HCL 500 MG TABLET (FP) PO SCH (06:24)
[2019-05-04] MEDS: METHADONE 160 MG, METHADONE 30 MG PO SCH (06:25)
[2019-05-04] MEDS ORDERED: METHADONE HCL 40 MG DISPERSABLE TABLET ONE (06:25)
[2019-05-04] MEDS: NICOTINE POLACRILEX 2 MG GUM BUC PRN ×3 (06:26→21:23)
[2019-05-04] MEDS: PRENATAL VITAMINS W/ FOLIC ACID TABLET (FP) PO SCH (10:05)
[2019-05-04] MEDS: GABAPENTIN 300 MG CAPSULE (FP) PO SCH ×2 (10:05→21:22)
[2019-05-04] MEDS: LISINOPRIL 10 MG TABLET (FP) PO SCH (10:05)
[2019-05-04] MEDS: NICOTINE 14 MG/24 HOURS TOPICAL PATCH TD SCH (10:05)
[2019-05-04] MEDS: ACETAMINOPHEN 325 MG TABLET (FP) PO PRN (14:38)
[2019-05-04] MEDS: hydrOXYzine PAMOATE 50 MG CAPSULE (FP) PO PRN ×2 (14:40→21:24)
[2019-05-04] MEDS: QUEtiapine FUMARATE 50 MG TABLET PO SCH (21:22)
[2019-05-04] MEDS: THIAMINE HCL 100 MG TABLET (FP) PO SCH (21:23)
[2019-05-05] MEDS ORDERED: METHADONE HCL 40 MG DISPERSABLE TABLET ONE (06:13)
[2019-05-05] MEDS ORDERED: METHADONE HCL 10 MG TABLET ONE (06:13)
[2019-05-05] MEDS: METHADONE 160 MG, METHADONE 30 MG PO SCH (06:16)
[2019-05-05] MEDS: NICOTINE POLACRILEX 2 MG GUM BUC PRN ×4 (06:17→21:39)
[2019-05-05] MEDS: metFORMIN HCL 500 MG TABLET (FP) PO SCH (07:44)
[2019-05-05] MEDS: NICOTINE 14 MG/24 HOURS TOPICAL PATCH TD SCH (09:46)
[2019-05-05] MEDS: PRENATAL VITAMINS W/ FOLIC ACID TABLET (FP) PO SCH (09:46)
[2019-05-05] MEDS: GABAPENTIN 300 MG CAPSULE (FP) PO SCH ×2 (09:46→21:38)
[2019-05-05] MEDS: LISINOPRIL 10 MG TABLET (FP) PO SCH (09:46)
[2019-05-05] MEDS: QUEtiapine FUMARATE 50 MG TABLET PO SCH (21:38)
[2019-05-05] MEDS: THIAMINE HCL 100 MG TABLET (FP) PO SCH (21:38)
[2019-05-05] MEDS: hydrOXYzine PAMOATE 50 MG CAPSULE (FP) PO PRN (21:38)
[2019-05-05] MEDS: MELATONIN 5 MG TABLETS PO PRN (21:39)
[2019-05-06] MEDS ORDERED: METHADONE HCL 10 MG TABLET ONE (06:15)
[2019-05-06] MEDS: METHADONE 160 MG, METHADONE 30 MG PO SCH (06:16)
[2019-05-06] MEDS ORDERED: METHADONE HCL 40 MG DISPERSABLE TABLET ONE (06:16)
[2019-05-06] MEDS: NICOTINE POLACRILEX 2 MG GUM BUC PRN ×2 (06:19→10:03)
[2019-05-06] MEDS: metFORMIN HCL 500 MG TABLET (FP) PO SCH (06:40)
[2019-05-06] MEDS: PRENATAL VITAMINS W/ FOLIC ACID TABLET (FP) PO SCH (10:02)
[2019-05-06] MEDS: GABAPENTIN 300 MG CAPSULE (FP) PO SCH ×2 (10:02→21:12)
[2019-05-06] MEDS: LISINOPRIL 10 MG TABLET (FP) PO SCH (10:03)
[2019-05-06] MEDS: NICOTINE 14 MG/24 HOURS TOPICAL PATCH TD SCH (10:03)
[2019-05-06] MEDS: QUEtiapine FUMARATE 50 MG TABLET PO SCH (21:12)
[2019-05-06] MEDS: THIAMINE HCL 100 MG TABLET (FP) PO SCH (21:12)
[2019-05-06] MEDS: MELATONIN 5 MG TABLETS PO PRN (21:13)
[2019-05-06] MEDS: hydrOXYzine PAMOATE 50 MG CAPSULE (FP) PO PRN (21:13)
[2019-05-07] MEDS ORDERED: METHADONE HCL 10 MG TABLET ONE (06:34)
[2019-05-07] MEDS ORDERED: METHADONE HCL 40 MG DISPERSABLE TABLET ONE (06:34)
[2019-05-07] MEDS: METHADONE 160 MG, METHADONE 30 MG PO SCH (06:35)
[2019-05-07] MEDS: metFORMIN HCL 500 MG TABLET (FP) PO SCH (07:02)
[2019-05-07] MEDS: MAG HYDROX/AL HYDROX/SIMETH 30 ML UNIT-DOSE CUP PO PRN (08:49)
[2019-05-07] MEDS: PRENATAL VITAMINS W/ FOLIC ACID TABLET (FP) PO SCH (09:49)
[2019-05-07] MEDS: LISINOPRIL 10 MG TABLET (FP) PO SCH (09:49)
[2019-05-07] MEDS: NICOTINE 14 MG/24 HOURS TOPICAL PATCH TD SCH (09:50)
[2019-05-07] MEDS: GABAPENTIN 300 MG CAPSULE (FP) PO SCH (09:50)
[2019-05-07] MEDS: NICOTINE POLACRILEX 2 MG GUM BUC PRN (09:51)
--- NOTE | 2019-05-07 10:40 | EKG ---
Test Reason : Blood Pressure : / mmHG Vent. Rate : 091 BPM Atrial Rate : 091 BPM P-R Int : 140 ms QRS Dur : 092 ms QT Int : 602 ms P-R-T Axes : 057 034 048 degrees QTc Int : 740 ms NORMAL SINUS RHYTHM NORMAL ECG NO PREVIOUS ECGS AVAILABLE Confirmed by ARMANDO MORALES MD ([id number]) on 05/07/2019 10:40:04 AM Referred By: JENNIFER OSULLIVAN Confirmed By:ARMANDO MORALES MD
--- NOTE | 2019-05-07 11:58 | PN ---
[facility] Progress Note (SOAP) Subjective: PT C/O DRY MOUTH AND UPPER CHEST DISCOMFORT-FRONTAL AND BACK. REPORTS 6/10 SCALE. REPORTS IT HURTS WHEN SHE BREATHS OR MOVES. SHE DENIES SOB,COUGHING, RUNNY NOSE OR DIZZINESS. Objective: 05/07/19 11:55 Vital Signs - 24 hr 05/07/19 05/07/19 05/07/19 00:30 03:30 07:12 Temperature 98.7 F Pulse Rate 98 H Respiratory 18 18 18 Rate Blood Pressure 116/84 O2 Sat by Pulse Oximetry (%) 05/07/19 05/07/19 09:13 10:27 Temperature Pulse Rate 111 H Respiratory 18 Rate Blood Pressure 107/71 O2 Sat by Pulse 99 Oximetry (%) Laboratory Tests 04/30/19 05/01/19 05/01/19 21:38 06:23 16:55 POC Glucometer 78 97 80 05/02/19 05/02/19 05/03/19 06:22 16:58 06:18 POC Glucometer 76 89 85 05/04/19 05/05/19 05/06/19 06:23 06:15 06:14 POC Glucometer 84 85 74 05/07/19 06:33 POC Glucometer 75 CARDIAC:S1 S2, RRR, NO MM EKG:NRS HR 91 NORMAL ECG LUNGS;CTA,SONYA. ABDOMEN:SOFT,+BS, NT/ND EXTREMITIES:NO EDEMA Assessment: 05/07/19 11:58 A:MUSCLE SPASMS Plan: ROBAXIN 500 MG PO TID PRN FOR MUSCLE SPASM MOTRIN PRN FOR PAIN. INCREASE PO FLUIDS
[2019-05-07] MEDS: GABAPENTIN 300 MG CAPSULE (FP) PO PRN ×2 (12:07→21:42)
[2019-05-07] MEDS: METHOCARBAMOL 500 MG TABLET PO SCH ×2 (13:55→21:40)
[2019-05-07] MEDS: ACETAMINOPHEN 325 MG TABLET (FP) PO PRN (18:58)
[2019-05-07] MEDS: hydrOXYzine PAMOATE 50 MG CAPSULE (FP) PO PRN (18:59)
[2019-05-07] MEDS: THIAMINE HCL 100 MG TABLET (FP) PO SCH (21:39)
[2019-05-07] MEDS: QUEtiapine FUMARATE 50 MG TABLET PO SCH (21:40)
[2019-05-08] MEDS ORDERED: METHADONE HCL 10 MG TABLET ONE (06:12)
[2019-05-08] MEDS: METHADONE 160 MG, METHADONE 30 MG PO SCH (06:12)
[2019-05-08] MEDS ORDERED: METHADONE HCL 40 MG DISPERSABLE TABLET ONE (06:12)
[2019-05-08] MEDS: metFORMIN HCL 500 MG TABLET (FP) PO SCH (06:16)
[2019-05-08] MEDS: METHOCARBAMOL 500 MG TABLET PO SCH ×3 (06:16→21:35)
[2019-05-08] MEDS: NICOTINE POLACRILEX 2 MG GUM BUC PRN ×4 (06:17→21:38)
[2019-05-08] MEDS: LISINOPRIL 10 MG TABLET (FP) PO SCH (09:57)
[2019-05-08] MEDS: NICOTINE 14 MG/24 HOURS TOPICAL PATCH TD SCH (09:57)
[2019-05-08] MEDS: PRENATAL VITAMINS W/ FOLIC ACID TABLET (FP) PO SCH (09:57)
[2019-05-08] MEDS: GABAPENTIN 300 MG CAPSULE (FP) PO PRN ×2 (09:59→21:37)
[2019-05-08] MEDS: hydrOXYzine PAMOATE 50 MG CAPSULE (FP) PO PRN (10:00)
[2019-05-08] MEDS: MELATONIN 5 MG TABLETS PO PRN (21:35)
[2019-05-08] MEDS: THIAMINE HCL 100 MG TABLET (FP) PO SCH (21:35)
[2019-05-08] MEDS: QUEtiapine FUMARATE 50 MG TABLET PO SCH (21:36)
[2019-05-09] MEDS: metFORMIN HCL 500 MG TABLET (FP) PO SCH (06:52)
[2019-05-09] MEDS ORDERED: METHADONE HCL 10 MG TABLET ONE (06:53)
[2019-05-09] MEDS: METHADONE 160 MG, METHADONE 30 MG PO SCH (06:53)
[2019-05-09] MEDS ORDERED: METHADONE HCL 40 MG DISPERSABLE TABLET ONE (06:53)
[2019-05-09] MEDS: NICOTINE POLACRILEX 2 MG GUM BUC PRN ×3 (06:55→17:41)
[2019-05-09] MEDS: METHOCARBAMOL 500 MG TABLET PO SCH ×3 (06:55→21:13)
[2019-05-09] MEDS: hydrOXYzine PAMOATE 50 MG CAPSULE (FP) PO PRN ×2 (09:01→21:12)
[2019-05-09] MEDS: NICOTINE 14 MG/24 HOURS TOPICAL PATCH TD SCH (10:01)
[2019-05-09] MEDS: PRENATAL VITAMINS W/ FOLIC ACID TABLET (FP) PO SCH (10:01)
[2019-05-09] MEDS: LISINOPRIL 10 MG TABLET (FP) PO SCH (10:01)
[2019-05-09] MEDS: GABAPENTIN 300 MG CAPSULE (FP) PO PRN (10:04)
--- NOTE | 2019-05-09 17:39 | PN ---
Psychiatric Progress Note Vital Signs: Vital Signs Period Temp Pulse Resp BP Sys/Nolasco Pulse Ox Last 24 Hr 98.0 F 72-97 16-18 104-113/69-71 Date of Session: 05/09/19 Chief Complaint:: [facility] HPI: " I feel irritable, anxious, and i still can't sleep." ROS: Patient coherent, anxious, alert and oriented X3. Current Medications: Active Medications Generic Name Dose Route Start Last Admin Trade Name Freq PRN Reason Stop Dose Admin Acetaminophen 650 mg 04/30/19 15:52 05/07/19 18:58 Tylenol - PO 650 mg Q4H PRN Administration FEVER Al Hydroxide/Mg Hydroxide 30 ml 04/30/19 15:52 05/07/19 08:49 Mylanta Oral Suspension - PO 30 ml Q6H PRN Administration DYSPEPSIA Eucalyptus/Menthol/Phenol/Sorbitol 1 each 04/30/19 15:52 Cepastat Lozenge - MM Q4H PRN SORE THROAT Gabapentin 300 mg 05/07/19 10:38 05/09/19 10:04 Neurontin - PO 300 mg BID PRN Administration MUSCLE SPASMS Guaifenesin 10 ml 04/30/19 15:52 Robitussin - PO Q6H PRN COUGH Hydroxyzine Pamoate 50 mg 04/30/19 15:52 05/09/19 09:01 Vistaril - PO 50 mg Q6H PRN Administration AGITATION Lisinopril 10 mg 05/01/19 10:00 05/09/19 10:01 Prinivil PO Not Given DAILY PATRICE Loperamide HCl 4 mg 04/30/19 15:52 Imodium - PO Q6H PRN DIARRHEA Magnesium Citrate 300 ml 04/30/19 15:52 Citroma - PO Q48H PRN CONSTIPATION Magnesium Hydroxide 30 ml 04/30/19 15:52 Milk Of Magnesia - PO DAILY PRN CONSTIPATION Melatonin 5 mg 04/30/19 22:00 05/08/19 21:35 Melatonin PO 5 mg HS PRN Administration INSOMNIA Metformin HCl 500 mg 05/01/19 07:00 05/09/19 06:52 Glucophage - PO Not Given DAILY@0700 PATRICE Methadone HCl 160 mg/ 190 mg 05/08/19 06:00 05/09/19 06:53 Methadone HCl 30 mg PO 05/14/19 05:59 190 mg DAILY@0600 PATRICE Administration Methocarbamol 500 mg 05/07/19 14:00 05/09/19 13:41 Robaxin - PO 500 mg TID PATRICE Administration Nicotine 14 mg 05/01/19 10:00 05/09/19 10:01 Nicoderm Patch - TD Not Given DAILY PATRICE Nicotine Polacrilex 4 mg 04/30/19 15:56 05/09/19 10:04 Nicorette Gum - BUC 4 mg Q2H PRN Administration NICOTINE REPLACEMENT RX Multivit/Folic Acid/Iron 1 tab 05/01/19 10:00 05/09/19 10:01 Vitamins (Sjr) - PO 1 tab DAILY PATRICE Administration Pseudoephedrine/Triprolidine 1 combo 04/30/19 15:52 Actifed - PO TID PRN NASAL CONGESTION Quetiapine Fumarate 200 mg 05/09/19 22:00 Seroquel - PO HS PATRICE Thiamine HCl 100 mg 04/30/19 22:00 05/08/19 21:35 Vitamin B1 - PO 100 mg HS PATRICE Administration Medication(s) Change(s): Yes Current Side Effect: No Lab tests ordered: No Lab tests reviewed: Yes Provider note:: Patient reports feeling irritable, agitated, anxious, and continues to have diufficulty sleeping. Patient is currently accepting seroquel 150mg HS. Patient agreeable in accepting seroquel 200mg HS. Will also increase Melatonin dose from 5mg to 10mg. Patient denies thoughts to hurt herself or others. Benefits and side effects discussed. Verbal consent given. Total face to face time:: 25 Mental Status Exam - Mental Status Exam Alert and Oriented to: Time, Place, Person Cognitive Function: Good Patient Appearance: Well Groomed Mood: Anxious, Irritable (Slightly irritable but redirectable) Affect: Mood Congruent Patient Behavior: Cooperative Speech Pattern: Appropriate Voice Loudness: Normal Thought Process: Goal Oriented Thought Disorder: Not Present Hallucinations: Denies Suicidal Ideation: Denies Homicidal Ideation: Denies Insight/Judgement: Poor Sleep: Poorly Appetite: Fair Muscle strength/Tone: Normal Gait/Station: Normal Psychiatric Treatment Plan - Problem List (1) Sedative hypnotic or anxiolytic dependence Current Visit: Yes (2) Substance-induced sleep disorder Current Visit: Yes (3) Alcohol dependence Current Visit: Yes (4) Cocaine dependence Current Visit: Yes Qualifiers: Substance use status: uncomplicated Qualified Code(s): F14.20 - Cocaine dependence, uncomplicated (5) Opioid dependence on agonist therapy Current Visit: Yes Comment: on MMTP on 180 mg, last medicated today, dose pending verification (6) PTSD (post-traumatic stress disorder) Current Visit: Yes Comment: As per history. (7) Substance induced mood disorder Current Visit: Yes
[2019-05-09] MEDS: THIAMINE HCL 100 MG TABLET (FP) PO SCH (21:12)
[2019-05-09] MEDS: MELATONIN 5 MG TABLETS PO PRN (21:12)
[2019-05-09] MEDS: QUEtiapine FUMARATE 200 MG TABLET PO SCH (21:14)
[2019-05-10] MEDS ORDERED: METHADONE HCL 10 MG TABLET ONE (05:53)
[2019-05-10] MEDS ORDERED: METHADONE HCL 40 MG DISPERSABLE TABLET ONE (05:54)
[2019-05-10] MEDS: METHADONE 160 MG, METHADONE 30 MG PO SCH (06:03)
[2019-05-10] MEDS: METHOCARBAMOL 500 MG TABLET PO SCH ×3 (06:04→21:56)
[2019-05-10] MEDS: metFORMIN HCL 500 MG TABLET (FP) PO SCH (06:04)
[2019-05-10] MEDS: NICOTINE POLACRILEX 2 MG GUM BUC PRN ×3 (06:05→18:08)
[2019-05-10] MEDS: hydrOXYzine PAMOATE 50 MG CAPSULE (FP) PO PRN ×2 (10:19→18:07)
[2019-05-10] MEDS: PRENATAL VITAMINS W/ FOLIC ACID TABLET (FP) PO SCH (10:19)
[2019-05-10] MEDS: NICOTINE 14 MG/24 HOURS TOPICAL PATCH TD SCH (10:19)
[2019-05-10] MEDS: LISINOPRIL 10 MG TABLET (FP) PO SCH (10:19)
[2019-05-10] MEDS: QUEtiapine FUMARATE 200 MG TABLET PO SCH (21:54)
[2019-05-10] MEDS: THIAMINE HCL 100 MG TABLET (FP) PO SCH (21:54)
[2019-05-10] MEDS: MELATONIN 5 MG TABLETS PO PRN (21:55)
[2019-05-10] MEDS: GABAPENTIN 300 MG CAPSULE (FP) PO PRN (21:55)
[2019-05-11] MEDS ORDERED: METHADONE HCL 10 MG TABLET ONE (06:29)
[2019-05-11] MEDS ORDERED: METHADONE HCL 40 MG DISPERSABLE TABLET ONE (06:29)
[2019-05-11] MEDS: METHADONE 160 MG, METHADONE 30 MG PO SCH (06:39)
[2019-05-11] MEDS: METHOCARBAMOL 500 MG TABLET PO SCH ×3 (06:39→21:20)
[2019-05-11] MEDS: NICOTINE POLACRILEX 2 MG GUM BUC PRN ×3 (06:42→21:22)
[2019-05-11] MEDS: metFORMIN HCL 500 MG TABLET (FP) PO SCH (07:37)
[2019-05-11] MEDS: PRENATAL VITAMINS W/ FOLIC ACID TABLET (FP) PO SCH (10:04)
[2019-05-11] MEDS: LISINOPRIL 10 MG TABLET (FP) PO SCH (10:05)
[2019-05-11] MEDS: NICOTINE 14 MG/24 HOURS TOPICAL PATCH TD SCH (10:06)
[2019-05-11] MEDS: hydrOXYzine PAMOATE 50 MG CAPSULE (FP) PO PRN ×2 (10:06→21:22)
[2019-05-11] MEDS: MELATONIN 5 MG TABLETS PO PRN (21:20)
[2019-05-11] MEDS: THIAMINE HCL 100 MG TABLET (FP) PO SCH (21:20)
[2019-05-11] MEDS: QUEtiapine FUMARATE 200 MG TABLET PO SCH (21:20)
[2019-05-12] MEDS ORDERED: METHADONE HCL 10 MG TABLET ONE (06:00)
[2019-05-12] MEDS ORDERED: METHADONE HCL 40 MG DISPERSABLE TABLET ONE (06:00)
[2019-05-12] MEDS: METHADONE 160 MG, METHADONE 30 MG PO SCH (06:02)
[2019-05-12] MEDS: metFORMIN HCL 500 MG TABLET (FP) PO SCH (06:03)
[2019-05-12] MEDS: NICOTINE POLACRILEX 2 MG GUM BUC PRN ×4 (06:03→21:33)
[2019-05-12] MEDS: METHOCARBAMOL 500 MG TABLET PO SCH ×3 (06:03→21:32)
[2019-05-12] MEDS: hydrOXYzine PAMOATE 50 MG CAPSULE (FP) PO PRN ×2 (09:20→18:42)
[2019-05-12] MEDS: NICOTINE 14 MG/24 HOURS TOPICAL PATCH TD SCH (09:21)
[2019-05-12] MEDS: PRENATAL VITAMINS W/ FOLIC ACID TABLET (FP) PO SCH (09:21)
[2019-05-12] MEDS: LISINOPRIL 10 MG TABLET (FP) PO SCH (09:21)
[2019-05-12] MEDS: THIAMINE HCL 100 MG TABLET (FP) PO SCH (21:31)
[2019-05-12] MEDS: QUEtiapine FUMARATE 200 MG TABLET PO SCH (21:32)
[2019-05-12] MEDS: MELATONIN 5 MG TABLETS PO PRN (21:33)
[2019-05-13] MEDS ORDERED: METHADONE HCL 40 MG DISPERSABLE TABLET ONE (05:57)
[2019-05-13] MEDS ORDERED: METHADONE HCL 10 MG TABLET ONE (05:57)
[2019-05-13] MEDS: METHADONE 160 MG, METHADONE 30 MG PO SCH (06:12)
[2019-05-13] MEDS: METHOCARBAMOL 500 MG TABLET PO SCH ×3 (06:13→21:32)
[2019-05-13] MEDS: NICOTINE POLACRILEX 2 MG GUM BUC PRN (06:17)
[2019-05-13] MEDS: metFORMIN HCL 500 MG TABLET (FP) PO SCH (06:34)
[2019-05-13] MEDS: PRENATAL VITAMINS W/ FOLIC ACID TABLET (FP) PO SCH (09:56)
[2019-05-13] MEDS: LISINOPRIL 10 MG TABLET (FP) PO SCH (09:57)
[2019-05-13] MEDS: NICOTINE 14 MG/24 HOURS TOPICAL PATCH TD SCH (09:57)
[2019-05-13] MEDS: hydrOXYzine PAMOATE 50 MG CAPSULE (FP) PO PRN ×2 (09:58→21:32)
[2019-05-13] MEDS: THIAMINE HCL 100 MG TABLET (FP) PO SCH (21:31)
[2019-05-13] MEDS: MELATONIN 5 MG TABLETS PO PRN (21:32)
[2019-05-13] MEDS: QUEtiapine FUMARATE 200 MG TABLET PO SCH (21:33)
[2019-05-14] MEDS ORDERED: METHADONE HCL 10 MG TABLET ONE (06:01)
[2019-05-14] MEDS ORDERED: METHADONE HCL 40 MG DISPERSABLE TABLET ONE (06:01)
[2019-05-14] MEDS: METHADONE 160 MG, METHADONE 30 MG PO SCH (06:12)
[2019-05-14] MEDS: METHOCARBAMOL 500 MG TABLET PO SCH ×3 (06:13→21:21)
[2019-05-14] MEDS: metFORMIN HCL 500 MG TABLET (FP) PO SCH (07:43)
[2019-05-14] MEDS ORDERED: COLLOIDAL OATMEAL 1 BAR EACH TP PRN ×2 (08:43→12:00)
[2019-05-14] MEDS: NICOTINE 14 MG/24 HOURS TOPICAL PATCH TD SCH (10:15)
[2019-05-14] MEDS: PRENATAL VITAMINS W/ FOLIC ACID TABLET (FP) PO SCH (10:15)
[2019-05-14] MEDS: LISINOPRIL 10 MG TABLET (FP) PO SCH (10:15)
[2019-05-14] MEDS: hydrOXYzine PAMOATE 50 MG CAPSULE (FP) PO PRN ×2 (10:16→21:21)
[2019-05-14] MEDS: AMMONIUM LACTATE 12% LOTION 225 GM BOTTLE TP SCH (13:51)
[2019-05-14] MEDS: NICOTINE POLACRILEX 2 MG GUM BUC PRN ×2 (13:52→21:22)
[2019-05-14] MEDS: THIAMINE HCL 100 MG TABLET (FP) PO SCH (21:20)
[2019-05-14] MEDS: QUEtiapine FUMARATE 200 MG TABLET PO SCH (21:21)
[2019-05-14] MEDS: GABAPENTIN 300 MG CAPSULE (FP) PO PRN (21:21)
[2019-05-14] MEDS: MELATONIN 5 MG TABLETS PO PRN (21:21)
[2019-05-15] MEDS ORDERED: METHADONE HCL 40 MG DISPERSABLE TABLET ONE (06:16)
[2019-05-15] MEDS ORDERED: METHADONE HCL 10 MG TABLET ONE (06:16)
[2019-05-15] MEDS: MAG HYDROX/AL HYDROX/SIMETH 30 ML UNIT-DOSE CUP PO PRN (06:18)
[2019-05-15] MEDS: METHOCARBAMOL 500 MG TABLET PO SCH ×2 (06:18→14:36)
[2019-05-15] MEDS: METHADONE 160 MG, METHADONE 30 MG PO SCH (06:19)
[2019-05-15] MEDS: NICOTINE POLACRILEX 2 MG GUM BUC PRN ×2 (06:23→10:13)
[2019-05-15] MEDS: metFORMIN HCL 500 MG TABLET (FP) PO SCH (08:34)
[2019-05-15] MEDS ORDERED: PT OWN MED DRAWER 7, Y5N ONE (09:06)
[2019-05-15] MEDS: NICOTINE 14 MG/24 HOURS TOPICAL PATCH TD SCH (10:12)
[2019-05-15] MEDS: PRENATAL VITAMINS W/ FOLIC ACID TABLET (FP) PO SCH (10:12)
[2019-05-15] MEDS: AMMONIUM LACTATE 12% LOTION 225 GM BOTTLE TP SCH (10:13)
[2019-05-15] MEDS: LISINOPRIL 10 MG TABLET (FP) PO SCH ×2 (10:14→10:55)
--- NOTE | 2019-05-15 11:06 | PN ---
S Progress Note (SOAP) Subjective: Patient with chest pain unrelieved with maalox. Reports Chest pain is radiating down the left arm. Unable to take ASA, allergy. She received 50 Vistaril and 200 of Seraquel at 10:21 pm and 190mg of Methadone at 6 am. Denies nausea or vomiting, Objective: EKG shows prolonged QT waves, and T wave abnormality, possible anterior ischemia. Heart sounds regular, lungs clear, respirations easy and unlabored,skin dry, no distress noted. BP right before transfer: 144/82, HR-79, Afebrile, RR- 18, O2 sat: 97 % Vital Signs (72 hours) 05/13/19 05/13/19 05/13/19 00:30 03:30 07:20 Temperature 98 F Pulse Rate 58 L Respiratory 18 18 16 Rate Blood Pressure 130/83 05/13/19 05/14/19 05/14/19 09:14 00:30 03:30 Temperature Pulse Rate 86 Respiratory 18 18 18 Rate Blood Pressure 103/68 05/14/19 05/14/19 05/15/19 07:21 09:08 00:30 Temperature 98.5 F Pulse Rate 90 85 Respiratory 18 18 Rate Blood Pressure 159/88 133/84 05/15/19 05/15/19 05/15/19 03:30 07:21 10:00 Temperature 98.0 F Pulse Rate 64 89 Respiratory 18 18 Rate Blood Pressure 124/83 100/67 Assessment: Chest pain radiating down left arm. 05/15/19 11:08 Plan: PLAN: Patient will be transferred to [facility] ER for further evaluation. Report given to Dr. Hernández. configuration management architect notified of prolonged QT waves, he will d/c or reduce seroquel, vistaril will be discontinued.
[2019-05-15 11:07] VITALS: BP 144/82; PULSE 79; TEMP 97.8
--- NOTE | 2019-05-15 11:14 | PN ---
MARY ALICES Progress Note Note: Psychiatric nurse practitioner note: Patient transferred to [facility] ER due to prolong QT. Case discussed with JORY Hackett. Patient complaining of chest pain radiating down her left arm. Will d/c seroquel 200mg and vistaril 50mg q6h. Alternative options of medication to be discussed with patient if she returns to rehab.
--- NOTE | 2019-05-15 13:46 | EKG ---
Test Reason : Blood Pressure : / mmHG Vent. Rate : 068 BPM Atrial Rate : 068 BPM P-R Int : 148 ms QRS Dur : 094 ms QT Int : 466 ms P-R-T Axes : 062 020 075 degrees QTc Int : 495 ms NORMAL SINUS RHYTHM T WAVE ABNORMALITY, CONSIDER ANTERIOR ISCHEMIA PROLONGED QT ABNORMAL ECG WHEN COMPARED WITH ECG OF 07-MAY-2019 09:02, T WAVE INVERSION NOW EVIDENT IN ANTERIOR LEADS QT HAS SHORTENED Confirmed by MD MATT, SAVANNAH ([id number]) on 05/15/2019 1:46:02 PM Referred By: Confirmed By:SAVANNAH GUTIERREZ MD
== END 2019-05-15 11:25 | disposition short-term general hospital (02) | DRG 772 ==
LOC: YASAS 13:56 → Y3E 13:57
PROVIDERS: ADMIT Neuromusculoskeletal Medicine & OMM; ATTEND Neuromusculoskeletal Medicine & OMM
PROC: HZ42ZZZ Group Counseling for Substance Abuse Treatment, Cognitive-Behavioral (ICD-10-PCS; principal; 2019-04-30)
DX: F10.20 Alcohol dependence, uncomplicated (principal); F11.20 Opioid dependence, uncomplicated; F13.20 Sedative, hypnotic or anxiolytic dependence, uncomplicated; F14.20 Cocaine dependence, uncomplicated; F17.210 Nicotine dependence, cigarettes, uncomplicated; F19.24 Other psychoactive substance dependence with psychoactive substance-induced mood disorder; F19.282 Other psychoactive substance dependence with psychoactive substance-induced sleep disorder; F43.10 Post-traumatic stress disorder, unspecified; B18.2 Chronic viral hepatitis C; I10 Essential (primary) hypertension; E11.9 Type 2 diabetes mellitus without complications; I45.81 Long QT syndrome; R07.9 Chest pain, unspecified; M25.512 Pain in left shoulder; M62.830 Muscle spasm of back; M62.838 Other muscle spasm; Z88.6 Allergy status to analgesic agent; Z79.84 Long term (current) use of oral hypoglycemic drugs; Z91.5 Personal history of self-harm
CPT/HCPCS: 82962; 93005; 93010

== ENCOUNTER 2019-05-15 11:51 | Observation (INO) | payer OTHER ==
--- NOTE | 2019-05-15 12:44 | PDOC ---
Documentation entered by Kenzie Banegas SCRIBE, acting as scribe for Melissa Jhaveri MD. Melissa Jhaveri MD: This documentation has been prepared by the Bassam walton Adrianna, SCRIBE, under my direction and personally reviewed by me in its entirety. I confirm that the documentation accurately reflects all work, treatment, procedures, and medical decision making performed by me. Attending Attestation - Resident Resident Name: ClaryPatricia - ED Attending Attestation I have performed the following: I have examined & evaluated the patient, The case was reviewed & discussed with the resident, I agree w/resident's findings & plan - HPI HPI: 05/15/19 13:41 49 y/o female, with PMH of HTN, Nicotine Dependence, M.M.T.P., Type II DM, Insomnia, Hep C (Treated), Bipolar Disorder, Depression, Post-Traumatic Stress Disorder, Insomnia from [facility] presenting with chest pain x 1 day. Patient reports sudden onset left sided chest pain last night, that radiates down her left arm. She states her chest pain is intermittent and non-exertional in nature. Denies relief with Maalox given last night, and was unable to take aspirin secondary to allergy. No prior sx of similar sx. As per [facility] note, Patient transferred to [facility] ER due to prolong QT. Patient complaining of chest pain radiating down her left arm. Will d/c seroquel 200mg and vistaril 50mg q6h. Alternative options of medication to be discussed with the patient if she returns to rehab. Allergies: Aspirin anaphylaxis Past Medical History: as documented in EMR/HPI Social history: Cocaine and EtOH abuse, currently detoxing at [facility]. Daily smoker. - Physicial Exam PE: 05/15/19 12:46 Agree with the resident's HPI and PE as documented in the electronic medical record. NAD, well appearing, EOMI, PERRL, MMM, nl conjunctiva, anicteric; neck supple. lungs clear, RRR, no murmur, abdomen soft nontender. Back nontender. MALLORY x4, no focal neuro deficits. No peripheral edema. normal color for ethnicity, WWP. 05/15/19 12:46 - Medical Decision Making 05/15/19 12:46 See HPI for details. Prior notes reviewed, including admissions, discharges and consultations. Vital signs reviewed, wnl. DDx includes ACS, unstable vs stable angina, coronary vasospasm, NSTEMI, arrhythmia, costochondritis, GERD, pleurisy, anxiety, esophageal spasm, pneumonia, pericarditis/myocarditis, electrolyte/metabolic derangements. Low suspicion for pulmonary embolism or dissection. laboratory results and imaging reviewed, basic labs and lytes wnl, notable for LFTs wnl. neg preg test UA/tox pending CXR_no acute pathology Cardiac panel_neg trop x1 ED course -interventions: no ASA, allergic. no pain currently, declines analgesia EKG normal sinus rhythm at 67 bpm, prolonged QTC, 513ms, narrow QRS, ST and T wave segments and morphology normal. Nonspecific T wave abnormalities, unchanged from prior Chest pain HEART score 4 which denotes Moderate risk and probability for ACS, risk of 14-16% of MACE at 4-6 wks Given risk factors including comorbidities, gender, and tobacco use. Plan for admit observation, telemetry, possible Stress testing, to r/o ischemia , serial trops and EKG/tele monitoring. pain controlled, discussion with patient at bedside, questions answered. 05/15/19 12:48 05/15/19 13:42 05/15/19 14:48 05/15/19 16:02 05/15/19 16:02 Heart Score/ECG Review - History History: Slightly suspicious - Electrocardiogram EKG: Non specific repolarization disturbance - Age Age: 45-65 - Risk Factors Risk Factors Heart Score: Yes Hx Hypertension, Yes Hx Diabetes, Yes Smoking History Based on the list above the patient has:: >/=3 risk factors or Hx atherosclerotic disease - Troponin Troponin: </= normal limit - Score Heart Score - Total: 4 #1 ECG reviewed & interpreted by me at: 12:00 General ECG Interpretation: Sinus Rhythm, Normal Rate Compared to previous ECG there are: No significant change 05/15/19 12:50 EKG normal sinus rhythm at 67 bpm, prolonged QTC, 513ms, narrow QRS, ST and T wave segments and morphology normal. Nonspecific T wave abnormalities, unchanged from prior on methadone and agents prolonging QTC. ED Treatment Course - LABORATORY CBC & Chemistry Diagram: 05/15/19 12:27 05/15/19 12:27 - ADDITIONAL ORDERS Additional order review: Laboratory Results 05/15/19 05/15/19 12:28 12:27 Sodium 137 Potassium 4.5 Chloride 103 Carbon Dioxide 30 Anion Gap 4 L BUN 13.6 Creatinine 0.6 Est GFR (CKD-EPI)AfAm 123.18 Est GFR (CKD-EPI)NonAf 106.28 Random Glucose 83 Calcium 8.6 Magnesium 2.0 Total Bilirubin < 0.1 L AST 16 ALT 25 Alkaline Phosphatase 71 Troponin I < 0.02 Total Protein 7.5 Albumin 3.5 Serum , Qual Negative 05/15/19 12:27 RBC 3.98 MCV 85.8 MCHC 32.4 RDW 21.4 H MPV 8.7 Neutrophils % 47.9 Lymphocytes % 39.4 Monocytes % 9.3 Eosinophils % 2.7 Basophils % 0.7 - RADIOLOGY Radiology Studies Ordered: EXAM#: TYPE/EXAM: RESULT: [id number] RAD/CHEST PA LAT Chest: chest pain Impression: No acute chest pathology. Reported By: Delfino Francois MD 05/15/19 14:34
[2019-05-15 13:00] LABS: BASO % 0.7 % (0-2.0); EOS % 2.7 % (0-4.5); HEMATOCRIT 34.2 % (32.4-45.2); HEMOGLOBIN 11.1 GM/dL (10.7-15.3); LYMPH % 39.4 % (8-40); MCH 27.8 pg (25.7-33.7); MCHC 32.4 g/dl (32.0-36.0); MEAN CELL VOLUME 85.8 fl (80-96); MEAN PLT VOLUME 8.7 fl (7.5-11.1); MONO % 9.3 % (3.8-10.2); NEUT % 47.9 % (42.8-82.8); PLATELET COUNT 316 K/MM3 (134-434); RBC 3.98 M/mm3 (3.60-5.2); RDW 21.4 % (11.6-15.6); WHITE BLOOD COUNT 7.4 K/mm3 (4.0-10.0)
[2019-05-15 13:30] LABS: ALBUMIN 3.5 g/dl (3.4-5.0); ALK PHOS 71 U/L (45-117); ANION GAP 4 MMOL/L (8-16); BILIRUBIN,TOTAL < 0.1 mg/dL (0.2-1); BLOOD UREA NITROGEN 13.6 mg/dL (7-18); CALCIUM 8.6 mg/dL (8.5-10.1); CHLORIDE 103 mmol/L (98-107); CO2 30 mmol/L (21-32); CREATININE 0.6 mg/dL (0.55-1.3); GLUCOSE,RANDOM 83 mg/dL (74-106); POTASSIUM 4.5 mmol/L (3.5-5.1); SGOT/AST 16 U/L (15-37); SGPT/ALT 25 U/L (13-61); SODIUM 137 mmol/L (136-145); TOT PROT 7.5 g/dl (6.4-8.2)
--- NOTE | 2019-05-15 13:35 | PDOC ---
History of Present Illness - General History Source: Patient Exam Limitations: No Limitations - History of Present Illness Initial Comments: 05/15/19 13:33 49yo F with PMH of HTN, NIDDM, Cocaine use BIBA from [facility] for evaluation of CP that started yesterday. Pt cannot identify any triggers. Pain is not associated with exertion, no sob, no cough, no fevers no chills, no n/v/d, abdominal pain. Pain is intermittent, no triggers, denies injuries. Has had symptoms before but does not know the cause. Pt states she was given Maalox this AM which helped "a little". Denies family history of AR. Denies travel, leg swelling, inspirational chest pain, substance use. PMD: Melvin (Eveline) PMH: see hpi PSH: Meds: see med rec Allergies: ASA Social: smokes 1/2ppd x40y. remote history of iv drug use. <Patricia Means - Last Filed: 05/15/19 19:15> <Melissa Jhaveri - Last Filed: 05/18/19 10:33> - General Chief Complaint: Chest Pain Stated Complaint: CHEST PAIN Time Seen by Provider: 05/15/19 12:04 Past History - Past Medical History Anemia: No Asthma: No Cancer: No Cardiac Disorders: No CVA: No COPD: No CHF: No Dementia: No Diabetes: Yes GI Disorders: No Disorders: No HTN: Yes Hypercholesterolemia: No Kidney Stones: No Liver Disease: No Seizures: No Thyroid Disease: No - Surgical History Abdominal Surgery: No Appendectomy: No Cardiac Surgery: No Cholecystectomy: No Lung Surgery: No Neurologic Surgery: No Orthopedic Surgery: No - Reproductive History PID: No - Immunization History Immunization Up to Date: Yes - Suicide/Smoking/Psychosocial Hx Smoking History: Current every day smoker Have you smoked in the past 12 months: Yes Number of Cigarettes Smoked Daily: 10 Information on smoking cessation initiated: Yes 'Breaking Loose' booklet given: 04/26/19 Hx Alcohol Use: No (denies alcohol abuse) Drug/Substance Use Hx: Yes (cocaine and benzo) Substance Use Type: Alcohol Hx Substance Use Treatment: Yes <Patricia Means - Last Filed: 05/15/19 19:15> <Melissa Jhaveri - Last Filed: 05/18/19 10:33> - Past Medical History Allergies/Adverse Reactions: Allergies Allergy/AdvReac Type Severity Reaction Status Date / Time aspirin Allergy Severe Difficulty Verified 05/15/19 12:28 Breathing Home Medications: Ambulatory Orders Metformin HCl [Glucophage] 1,000 mg PO DAILY 01/03/19 Lisinopril [Prinivil] 10 mg PO DAILY 14 Days #14 tablet 02/08/19 Methadone HCl 190 mg PO DAILY 05/15/19 Nicotine Polacrilex [Nicorette] 2 mg BC Q2H PRN 05/15/19 Quetiapine Fumarate [Seroquel] 100 tab PO HS 05/15/19 Review of Systems - Review of Systems Constitutional: No: Symptoms Reported HEENTM: No: Symptoms Reported Respiratory: No: Symptoms reported Cardiac (ROS): Yes: See HPI, Chest Pain. No: Edema, Lightheadedness, Palpitations, Syncope ABD/GI: No: Symptoms Reported : No: Symptoms Reported Musculoskeletal: No: Symptoms Reported Integumentary: No: Symptoms Reported Neurological: No: Symptoms reported <Patricia Means - Eric Filed: 05/15/19 19:15> *Physical Exam - Vital Signs Last Vital Signs Temp Pulse Resp BP Pulse Ox 98.2 F 70 18 122/73 100 05/15/19 11:51 05/15/19 11:51 05/15/19 11:51 05/15/19 11:51 05/15/19 12:13 - Physical Exam General Appearance: Yes: Nourished, Appropriately Dressed. No: Apparent Distress HEENT: positive: EOMI, HEATHER Neck: positive: Trachea midline, Supple Respiratory/Chest: positive: Lungs Clear, Normal Breath Sounds. negative: Crackles, Wheezing Cardiovascular: positive: Regular Rhythm, Regular Rate, S1, S2. negative: Edema , JVD, Murmur Vascular Pulses: Dorsalis-Pedis (R): 2+, Doralis-Pedis (L): 2+ Gastrointestinal/Abdominal: positive: Normal Bowel Sounds, Soft Musculoskeletal: negative: CVA Tenderness Extremity: positive: Normal Capillary Refill. negative: Pedal Edema, Swelling Integumentary: positive: Normal Color, Dry, Warm Neurologic: positive: rn pacu II-XII NML intact, Fully Oriented, Alert, Normal Mood/ Affect, Normal Response, Motor Strength 5/5 <Patricia Means - Last Filed: 05/15/19 19:15> - Vital Signs Last Vital Signs Temp Pulse Resp BP Pulse Ox 98 F 67 13 138/82 99 05/18/19 06:00 05/18/19 06:00 05/18/19 06:00 05/18/19 06:00 05/17/19 20:05 <Melissa Jhaveri - Last Filed: 05/18/19 10:33> Heart Score/ECG Review - History History: Slightly suspicious - Electrocardiogram EKG: Non specific repolarization disturbance - Age Age: 45-65 - Risk Factors Risk Factors Heart Score: Yes Hx Hypercholesterolemia, Yes Hx Diabetes, Yes Smoking History Based on the list above the patient has:: >/=3 risk factors or Hx atherosclerotic disease - Troponin Troponin: </= normal limit - Score Heart Score - Total: 4 <Patricia Means - Last Filed: 05/15/19 19:15> ED Treatment Course - LABORATORY CBC & Chemistry Diagram: 05/15/19 12:27 05/15/19 12:27 - ADDITIONAL ORDERS Additional order review: Laboratory Results 05/15/19 05/15/19 12:28 12:27 Sodium 137 Potassium 4.5 Chloride 103 Carbon Dioxide 30 Anion Gap 4 L BUN 13.6 Creatinine 0.6 Est GFR (CKD-EPI)AfAm 123.18 Est GFR (CKD-EPI)NonAf 106.28 Random Glucose 83 Calcium 8.6 Magnesium 2.0 Total Bilirubin < 0.1 L AST 16 ALT 25 Alkaline Phosphatase 71 Troponin I < 0.02 Total Protein 7.5 Albumin 3.5 Serum , Qual Negative 05/15/19 12:27 RBC 3.98 MCV 85.8 MCHC 32.4 RDW 21.4 H MPV 8.7 Neutrophils % 47.9 Lymphocytes % 39.4 Monocytes % 9.3 Eosinophils % 2.7 Basophils % 0.7 - RADIOLOGY Radiology Studies Ordered: Category Date Time Status CHEST PA & LAT [RAD] Stat Radiology 05/15/19 12:27 Ordered <Patricia Means - Last Filed: 05/15/19 19:15> - LABORATORY CBC & Chemistry Diagram: 05/18/19 05:13 05/18/19 05:13 - ADDITIONAL ORDERS Additional order review: 05/15/19 12:27 RBC 3.98 MCV 85.8 MCHC 32.4 RDW 21.4 H MPV 8.7 Neutrophils % 47.9 Lymphocytes % 39.4 Monocytes % 9.3 Eosinophils % 2.7 Basophils % 0.7 - Medications Given in the ED: ED Medications Discontinued Medications Generic Name Dose Route Start Last Admin Trade Name Arie PRN Reason Stop Dose Admin Insulin Aspart 0 vial 05/15/19 16:00 05/17/19 10:15 Novolog Vial Sliding Scale - SQ Not Given Q6H [facility] Protocol Melatonin 5 mg 05/17/19 23:56 05/18/19 00:19 Melatonin PO 05/17/19 23:57 5 mg ONCE ONE Administration Methocarbamol 500 mg 05/15/19 22:00 05/17/19 06:22 Robaxin - PO 500 mg TID PATRICE Administration Methocarbamol 500 mg 05/17/19 23:57 05/18/19 06:32 Robaxin - PO 500 mg TID PATRICE Administration <Melissa Jhaveri - Last Filed: 05/18/19 10:33> Medical Decision Making - Medical Decision Making 05/15/19 19:22 49yo F with PMH of HTN, NIDDM, Cocaine use BIBA from [facility] for evaluation of CP that started yesterday. Pt cannot identify any triggers. Pain is not associated with exertion, no sob, no cough, no fevers no chills, no n/v/d, abdominal pain. Pain is intermittent, no triggers, denies injuries. Has had symptoms before but does not know the cause. Pt states she was given Maalox this AM which helped "a little". Denies family history of AR. Denies travel, leg swelling, inspirational chest pain, substance use. Vitals wnl PE: benign Ddx includes but not limited to acs, pe, pna, ptx, endocarditis, effusion, msk, costochondritis, gastritis, esophagitis, arrhythmia Given use of methadone, seroquel, benadryl, worrisome for prolonged QT -ekg, cxr -trop, mg, cbc, cmp Pt not having much pain, allergic to asa, refusing pain meds EKG: prolonged QTc 515, flattened t waves. earlier 6am ekg showed prolonged qt and inverted t waves in lateral leads. trop normal. HEART score 4. will admit tele obs. Repeat ekg does not show any acute changes. <Clary,Patricia - Last Filed: 05/15/19 19:15> *DC/Admit/Observation/Transfer <Patricia Means - Last Filed: 05/15/19 19:15> - Discharge Dispostion Decision to Admit order: Yes <Melissa Jhaveri - Last Filed: 05/18/19 10:33> Diagnosis at time of Disposition: Prolonged Q-T interval on ECG Chest pain Qualifiers: Chest pain type: unspecified Qualified Code(s): R07.9 - Chest pain, unspecified - Discharge Dispostion Condition at time of disposition: Stable
[2019-05-15 13:46] LABS: ANISOCYTOSIS 0; MACROCYTOSIS 0; PLATELET ESTIMATE NORMAL
--- NOTE | 2019-05-15 14:48 | HP ---
Admitting History and Physical - Primary Care Physician PCP: Dr Frazier ([place]) - Admission Chief Complaint: chest pain History of Present Illness: Pt is a 49yo F, with PMH of HTN, current smoker, on methadone program, polysubstance use disorder, Type II DM, Insomnia, Hep C (Treated), Bipolar Disorder, Depression, Post-Traumatic Stress Disorder, brought in from [facility] for chest pain x 1 day. Patient reports sudden onset left sided chest pain last night at about 10pm while watching a scarry movie, pressure like 8/10, that radiates down her left arm. The chest pain is intermittent and non-exertional in nature, no associated SOB. No relief with Maalox given last night, and pt reports allergy to aspirin as a child with throat swelling. Pt has had chest pain in the past, but not as severe, up to 3 in a year. Pt reports using cocaine -smoking and snorting, heroine (iv injection in distant past), benzos, tobacco cut down to half a pack per day. Last use of any substance per pt was 20 days ago before she went into the rehab at [facility]. Pt says she is unable to use the nicotine patch due to nightmares but tolerates the gum. Has had repeated EKGS trending her QTC in the past, but has never had an ECHO or stress test. Per Pt, chest pain resolved about an hour after getting to the ED and she is currently chest pain free. Per pt she was diagnosed in recent rehab admission with depression. Never reported prior in pt psych at another facility and never had suicidal or homicidal ideation. Started taking seroquel about 3 months ago. Has been on methadone for several years. ED: trop <0.02 EKG- 6.38am- 68bpm, nsr, nl axis, nl interval, TWI-v1, v2, v3, v4, v5, II, III, AVF, QTC-495 EKG-11.52pm- 67bpm, nsr, nl intervals, nl axis, TW flattening V4, V5, V6, I, TWI , II, III, QTC-513 Social history: Lives with and 19 year old child. Never worked. Cocaine and EtOH abuse, currently detoxing at [facility]. Daily smoker. FHX:DM in family, son with type 1 DM Surgical hx: Denies prior surgeries History Source: Patient, Medical Record - Past Medical History ...LMP: 04/12/19 - Smoking History Smoking history: Current every day smoker Have you smoked in the past 12 months: Yes Aproximately how many cigarettes per day: 10 - Alcohol/Substance Use Hx Alcohol Use: No (denies alcohol abuse) Home Medications - Allergies Allergies/Adverse Reactions: Allergies Allergy/AdvReac Type Severity Reaction Status Date / Time aspirin Allergy Severe Difficulty Verified 05/15/19 12:28 Breathing - Home Medications Home Medications: Ambulatory Orders Metformin HCl [Glucophage] 1,000 mg PO DAILY 01/03/19 Lisinopril [Prinivil] 10 mg PO DAILY 14 Days #14 tablet 02/08/19 Methadone HCl 190 mg PO DAILY 05/15/19 Nicotine Polacrilex [Nicorette] 2 mg BC Q2H PRN 05/15/19 Quetiapine Fumarate [Seroquel] 100 tab PO HS 05/15/19 Family Disease History - Family Disease History Family Disease History: Diabetes: Grandparent (breast ca), Father, Mother ( ovarian?), Sister, CA: Grandparent, Mother Review of Systems - Review of Systems Constitutional: denies: Chills, Diaphoresis, Fever, Lethargy, Loss of Appetite, Malaise, Night Sweats Eyes: denies: Blurred Vision, Photophobia Neck: denies: Stiffness Cardiovascular: reports: Chest Pain. denies: Edema, Palpitations, Shortness of Breath Physical Examination Vital Signs: Vital Signs Temperature 98.2 F 05/15/19 11:51 Pulse Rate 70 05/15/19 11:51 Respiratory Rate 18 05/15/19 11:51 Blood Pressure 122/73 05/15/19 11:51 O2 Sat by Pulse Oximetry (%) 100 05/15/19 12:13 Constitutional: Yes: No Distress, Calm. No: Anxious Eyes: Yes: Conjunctiva Clear, EOM Intact, PERRL HENT: No: Pharyngeal Erythema Neck: Yes: Supple Cardiovascular: Yes: Regular Rate and Rhythm, S1, S2 Respiratory: Yes: CTA Bilaterally. No: Rales, Rhonchi, Wheezes Gastrointestinal: Yes: Normal Bowel Sounds, Soft. No: Tenderness Musculoskeletal: No: Back Pain, Joint Stiffness Extremities: Yes: WNL Edema: No Peripheral Pulses WNL: Yes Integumentary: No: Bruising Neurological: Yes: Alert, Oriented. No: Aphasia, Ataxia, Dysarthria, Facial Droop, Lethargy, Numbness, Pre-Existing Deficit, Seizure, Tremors ...Motor Strength: WNL Psychiatric: Yes: Alert, Oriented Labs: CBC, BMP 05/15/19 12:27 05/15/19 12:27 Assessment/Plan Ambulatory Orders Metformin HCl [Glucophage] 1,000 mg PO DAILY 01/03/19 Lisinopril [Prinivil] 10 mg PO DAILY 14 Days #14 tablet 02/08/19 Methadone HCl 190 mg PO DAILY 05/15/19 Nicotine Polacrilex [Nicorette] 2 mg BC Q2H PRN 05/15/19 Quetiapine Fumarate [Seroquel] 100 tab PO HS 05/15/19 Current Medications Enoxaparin Sodium (Lovenox -) 40 mg SQ DAILY PATRICE Insulin Aspart (Novolog Vial Sliding Scale -) 0 vial SQ Q6H PATRICE; Protocol Nicotine Polacrilex (Nicorette Gum -) 4 mg BUC Q2H PRN PRN Reason: NICOTINE REPLACEMENT RX Pt is a 49yo F, with PMH of HTN, current smoker, on methadone program, polysubstance use disorder, Type II DM, Insomnia, Hep C (Treated), Bipolar Disorder, Depression, Post-Traumatic Stress Disorder, brought in from [facility] for chest pain x 1 day. Chest pain R/O ACS EKG changes Repeat trend trops ECHO Not likely candidate for stress test at this time as she is in detox/rehab Lipid profile [id number] Dr Lal HTN Lisinopril 10mg daily DM ISS BGM Q6H Current smoker Nicotine gum Methadone program Cont methadone 190mg daily Insomnia Pt on seroquel Holding seroquel with prolonged QTC, hydroxyzine Polysubstance use Utox pending Avoid BB Pt hardly uses alcohol- CIWA 0 Bipolar Disorder/Depression/Post-Traumatic Stress Disorder Holding seroquel PPx-Lovenox Tele obs Visit type - Emergency Visit Emergency Visit: Yes ED Registration Date: 05/15/19 Care time: The patient presented to the Emergency Department on the above date and was hospitalized for further evaluation of their emergent condition. - New Patient This patient is new to me today: Yes Date on this admission: 05/15/19 - Critical Care Critical Care patient: No
[2019-05-15] MEDS ORDERED: NICOTINE POLACRILEX 4 MG GUM BUC PRN (15:54)
--- NOTE | 2019-05-15 15:59 | PN ---
Teaching Attending Note Name of Resident: Gisela Ramirez ATTENDING PHYSICIAN STATEMENT I saw and evaluated the patient. I reviewed the resident's note and discussed the case with the resident. I agree with the resident's findings and plan as documented with exceptions below. SUBJECTIVE: 49 yof with PMHx of HTN, NIDDM, Anxiety/depression/PTSD/MDD, prior psychiatric hospitalizations, polysubstance abuse (cocaine, xanax, alcohol, prior h/o IVDU with heroine), Hepatitis C s/p treatment, on methadone maintenance in [facility] rehab since 04/26, admitted with chest pain. Patient was in her [facility] yesterday evening, while watching TV when had suddent onset of substernal chest pressure radiating to left arm, off an on, went to sleep woke this AM, had recurrent symptoms, found with abnormal EKG and prolonged QTc at [facility] sent to ED. Reports her pain resolved within an hour in the ED, no recurrent since, no fevers, chills, palpitations, dyspnea, diaphoresis. States no cocaine since 04/26/2019. Similar prior chest pain 2-3 times last year. Denies prior cardiac w/u, echo/ stress testing. OBJECTIVE: Vital Signs Period Temp Pulse Resp BP Sys/Nolasco Pulse Ox Last 24 Hr 98.2 F 70 18 122/73 100-100 Intake & Output 05/12/19 05/13/19 05/14/19 05/15/19 23:59 23:59 23:59 23:59 Weight 341 lb 11.464 oz GENERAL: Awake, alert, and fully oriented, in no acute distress, ambulating in the hallway. HEAD: Normal with no signs of trauma. EYES: Pupils equal, round and reactive to light, extraocular movements intact, sclera anicteric, conjunctiva clear. No lid lag. EARS, NOSE, THROAT: Ears normal, nares patent, oropharynx clear without exudates. Moist mucous membranes. NECK: Normal range of motion, supple without lymphadenopathy, JVD, or masses. LUNGS: Breath sounds equal, clear to auscultation bilaterally. No wheezes, and no crackles. No accessory muscle use. HEART: Regular rate and rhythm, normal S1 and S2, no murmurs, rubs or gallops appreciated ABDOMEN: Soft, nontender, not distended, normoactive bowel sounds, no guarding, no rebound, no masses. MUSCULOSKELETAL: Normal range of motion at all joints. No bony deformities or tenderness. No CVA tenderness. UPPER EXTREMITIES: 2+ pulses, warm, well-perfused. No cyanosis. No clubbing. No peripheral edema. LOWER EXTREMITIES: 2+ pulses, warm, well-perfused. No calf tenderness. No peripheral edema. NEUROLOGICAL: AAOx3, power 5/5, Cranial nerves II-XII intact. Normal speech. Normal gait. PSYCHIATRIC: Cooperative. Good eye contact. Appropriate mood and affect. SKIN: Warm, dry, normal turgor, no rashes or lesions noted, normal capillary refill. Home Medications Medication Instructions Recorded Metformin HCl [Glucophage] 500 mg PO DAILY 01/03/19 Lisinopril [Prinivil] 10 mg PO DAILY 14 Days #14 tablet 02/08/19 Gabapentin 100 mg PO BID PRN 05/15/19 Mag Hydrox/Al Hydrox/Simeth 30 ml PO Q6H PRN 05/15/19 [Mylanta *Suspension*] Methadone HCl 190 mg PO DAILY 05/15/19 Methocarbamol 500 mg PO TID 05/15/19 Multivitamin [One-Daily 1 each PO DAILY 05/15/19 Multi-Vitamin] Nicotine Polacrilex [Nicorette] 2 mg BC Q2H PRN 05/15/19 Quetiapine Fumarate [Seroquel] 200 tab PO HS 05/15/19 Thiamine HCl [Vitamin B1] 100 mg PO DAILY 05/15/19 hydrOXYzine PAMOATE [Vistaril -] 50 mg PO QID PRN 05/15/19 Active Medications Enoxaparin Sodium (Lovenox -) 40 mg SQ DAILY [facility] Insulin Aspart (Novolog Vial Sliding Scale -) 0 vial SQ Q6H [facility]; Protocol Nicotine Polacrilex (Nicorette Gum -) 4 mg BUC Q2H PRN PRN Reason: NICOTINE REPLACEMENT RX Laboratory Results - last 24 hr 05/15/19 05/15/19 05/15/19 12:27 12:27 12:28 WBC 7.4 RBC 3.98 Hgb 11.1 Hct 34.2 MCV 85.8 MCH 27.8 MCHC 32.4 RDW 21.4 H Plt Count 316 D MPV 8.7 Absolute Neuts (auto) 3.6 Neutrophils % 47.9 Lymphocytes % 39.4 Monocytes % 9.3 Eosinophils % 2.7 Basophils % 0.7 Nucleated RBC % 0 Hypochromia 0 Platelet Estimate Normal Polychromasia 0 Poikilocytosis 0 Anisocytosis 0 Microcytosis 0 Macrocytosis 0 Sodium 137 Potassium 4.5 Chloride 103 Carbon Dioxide 30 Anion Gap 4 L BUN 13.6 Creatinine 0.6 Est GFR (CKD-EPI)AfAm 123.18 Est GFR (CKD-EPI)NonAf 106.28 Random Glucose 83 Calcium 8.6 Magnesium 2.0 Total Bilirubin < 0.1 L AST 16 ALT 25 Alkaline Phosphatase 71 Troponin I < 0.02 Total Protein 7.5 Albumin 3.5 Serum , Qual Negative CXr no acute process EKG 1 NSR, T inversion in V3-V6, QTc 495 (prior EKG with artefactual baseline, ? Flat Ts vs <1mm T inversions in V4-V6) EKG 2 NSR flat T waves V4-V6, QTc 513, otherwise unchanged EKG ASSESSMENT AND PLAN: 49 yof with PMHx of HTN, NIDDM, Anxiety/depression/PTSD/MDD, polysubstance abuse (cocaine, xanax, alcohol, prior h/o IVDU with heroine), Hepatitis C s/p treatment, on methadone maintenance in [facility] rehab since 04/26, admitted with chest pain and abnormal EKG -Chest pain, r/o ACS -Abnormal EKG -Prolonged QTc -HTN -HLD -NIDDM -polysubstance abuse (cocaine, xanax, alcohol, prior h/o IVDU with heroine) -methadone dependence -Hepatitis C s/p treatment -Anxiety/depression/PTSD/MDD, prior psychiatric hospitalizations Plan: Telemetry, cycle troponin. ASA. Lisinopril. Check lipid panel. 2D echo. Cardiology input. Avoid beta blockers for now. Check drug screen Serial EKG. Per records, started on seroquel in 01/2019, increased to 200 mg recently at [facility]. Will hold for now. Hold vistaril Defer further management to psychiatry when patient d/terence to [facility]. Continue methadone with monitoring(on current dose for 1 year, prior 220 mg). Patient informed, will need interval EKG monitoring with her PCP while on methadone. GIPPX PPI. DVTPPX lovenox Dispo to [facility] in 24 hours if no new concerns and work up negative.
[2019-05-15] MEDS: LISINOPRIL 10 MG TABLET (FP) PO SCH (17:25)
[2019-05-15] MEDS ORDERED: ENOXAPARIN NA (PORCINE) 40 MG/0.4 ML DISP.SYRIN SQ ONE (17:25)
[2019-05-15] MEDS: ENOXAPARIN NA (PORCINE) 40 MG/0.4 ML DISP.SYRIN SQ SCH (17:33)
[2019-05-15] MEDS: INSULIN SLIDING SCALE (NOVOLOG) 1 VIAL SQ SCH ×2 (17:34→21:48)
[2019-05-15 20:16] LABS: COCAINE, UR NEGATIVE ng/ml (CUTOFF=300); OPIATES, URI NEGATIVE ng/ml (CUTOFF=300); PHENCYCLIDINE,URINE NEGATIVE ng/ml (CUTOFF=25); URINE AMPHETAMINES NEGATIVE ng/ml (CUTOFF=500); URINE BARBITURATES NEGATIVE ng/ml (CUTOFF=200)
[2019-05-15 20:19] LABS: URINE BENZODIAZEPINES POSITIVE ng/ml (CUTOFF=200)
[2019-05-15 20:20] LABS: METHADONE, UR POSITIVE ng/ml (CUTOFF=300)
[2019-05-15 22:27] VITALS: BMI 27.3
[2019-05-15] MEDS: METHOCARBAMOL 500 MG TABLET PO SCH (22:31)
[2019-05-16] MEDS: INSULIN SLIDING SCALE (NOVOLOG) 1 VIAL SQ SCH ×4 (05:44→21:42)
[2019-05-16] MEDS: METHOCARBAMOL 500 MG TABLET PO SCH ×3 (05:44→21:58)
[2019-05-16 06:11] LABS: BASO % 0.5 % (0-2.0); EOS % 2.6 % (0-4.5); HEMATOCRIT 37.7 % (32.4-45.2); HEMOGLOBIN 12.1 GM/dL (10.7-15.3); LYMPH % 42.4 % (8-40); MCH 27.4 pg (25.7-33.7); MCHC 32.1 g/dl (32.0-36.0); MEAN CELL VOLUME 85.4 fl (80-96); MEAN PLT VOLUME 8.7 fl (7.5-11.1); MONO % 8.3 % (3.8-10.2); NEUT % 46.2 % (42.8-82.8); PLATELET COUNT 349 K/MM3 (134-434); RBC 4.42 M/mm3 (3.60-5.2); RDW 21.1 % (11.6-15.6); WHITE BLOOD COUNT 6.8 K/mm3 (4.0-10.0)
[2019-05-16 06:35] LABS: ALBUMIN 3.6 g/dl (3.4-5.0); BILIRUBIN,TOTAL 0.4 mg/dL (0.2-1); CALCIUM 8.9 mg/dL (8.5-10.1); CREATININE 0.7 mg/dL (0.55-1.3); PHOSPHOROUS 4.5 mg/dL (2.5-4.9); POTASSIUM 4.5 mmol/L (3.5-5.1); TOT PROT 7.8 g/dl (6.4-8.2)
--- NOTE | 2019-05-16 07:13 | PN ---
Physical Exam: SUBJECTIVE: Patient seen and examined. C/o of another episode of non reproducible chest pain today. Now resolved, no shortness of breath. Had ECHO, not a candidate for stress test at this time, due to polysubstance abuse. Having lunch. OBJECTIVE: Vital Signs Period Temp Pulse Resp BP Sys/Nolasco Pulse Ox Last 24 Hr 98.2 F-98.8 F 62-70 18-20 109-146/67-85 97-100 Vital Signs Temp 98.7 F 05/16/19 13:59 Pulse 84 05/16/19 16:30 Resp 18 05/16/19 16:30 BP 143/89 05/16/19 17:33 Pulse Ox 99 05/16/19 07:05 Intake & Output 05/15/19 05/16/19 05/16/19 23:59 11:59 23:59 Intake Total 300 420 400 Balance 300 420 400 Weight 72.348 kg Intake: Oral 300 420 400 Other: Voiding Method Bedpan Toilet # Unmeasured Voids Void 0 Height 1.63 m Body Mass Index (BMI) 27.3 Weight Measurement Method [facility] GENERAL: The patient is awake, alert, and fully oriented, in no acute distress. EYES: PERRL, extraocular movements intact, sclera anicteric, conjunctiva clear. ENT: moist mucous membranes. NECK: supple, no JVD. LUNGS: Breath sounds equal, clear to auscultation bilaterally, no wheezes, no crackles HEART: Regular rate and rhythm, S1, S2 without murmur ABDOMEN: Soft, nontender, nondistended, normoactive bowel sounds EXTREMITIES: 2+ pulses, warm, well-perfused, no edema. NEUROLOGICAL: Cranial nerves II through XII grossly intact. Normal speech, gait not observed. CBC, BMP 05/16/19 05:32 05/16/19 05:32 Laboratory Results - last 24 hr 05/15/19 05/15/19 05/15/19 12:27 12:27 12:28 WBC 7.4 RBC 3.98 Hgb 11.1 Hct 34.2 MCV 85.8 MCH 27.8 MCHC 32.4 RDW 21.4 H Plt Count 316 D MPV 8.7 Absolute Neuts (auto) 3.6 Neutrophils % 47.9 Lymphocytes % 39.4 Monocytes % 9.3 Eosinophils % 2.7 Basophils % 0.7 Nucleated RBC % 0 Hypochromia 0 Platelet Estimate Normal Polychromasia 0 Poikilocytosis 0 Anisocytosis 0 Microcytosis 0 Macrocytosis 0 Sodium 137 Potassium 4.5 Chloride 103 Carbon Dioxide 30 Anion Gap 4 L BUN 13.6 Creatinine 0.6 Est GFR (CKD-EPI)AfAm 123.18 Est GFR (CKD-EPI)NonAf 106.28 POC Glucometer Random Glucose 83 Calcium 8.6 Phosphorus Magnesium 2.0 Total Bilirubin < 0.1 L AST 16 ALT 25 Alkaline Phosphatase 71 Troponin I < 0.02 Total Protein 7.5 Albumin 3.5 Triglycerides Cholesterol Total LDL Cholesterol HDL Cholesterol Serum , Qual Negative Opiates Screen Methadone Screen Barbiturate Screen Phencyclidine Screen Ur Amphetamines Screen MDMA (Ecstasy) Screen Benzodiazepines Screen Cocaine Screen U Marijuana (THC) Screen 05/15/19 05/15/19 05/15/19 17:29 18:19 18:40 WBC RBC Hgb Hct MCV MCH MCHC RDW Plt Count MPV Absolute Neuts (auto) Neutrophils % Lymphocytes % Monocytes % Eosinophils % Basophils % Nucleated RBC % Hypochromia Platelet Estimate Polychromasia Poikilocytosis Anisocytosis Microcytosis Macrocytosis Sodium Potassium Chloride Carbon Dioxide Anion Gap BUN Creatinine Est GFR (CKD-EPI)AfAm Est GFR (CKD-EPI)NonAf POC Glucometer 85 Random Glucose Calcium Phosphorus Magnesium Total Bilirubin AST ALT Alkaline Phosphatase Troponin I < 0.02 Total Protein Albumin Triglycerides Cholesterol Total LDL Cholesterol HDL Cholesterol Serum , Qual Opiates Screen Negative Methadone Screen Positive A* Barbiturate Screen Negative Phencyclidine Screen Negative Ur Amphetamines Screen Negative MDMA (Ecstasy) Screen Negative Benzodiazepines Screen Positive A* Cocaine Screen Negative U Marijuana (THC) Screen Negative 05/15/19 05/16/19 05/16/19 21:34 05:32 05:32 WBC 6.8 RBC 4.42 Hgb 12.1 Hct 37.7 MCV 85.4 MCH 27.4 MCHC 32.1 RDW 21.1 H Plt Count 349 MPV 8.7 Absolute Neuts (auto) 3.1 Neutrophils % 46.2 Lymphocytes % 42.4 H Monocytes % 8.3 Eosinophils % 2.6 Basophils % 0.5 Nucleated RBC % 0 Hypochromia Platelet Estimate Polychromasia Poikilocytosis Anisocytosis Microcytosis Macrocytosis Sodium 139 Potassium 4.5 Chloride 101 Carbon Dioxide 31 Anion Gap 7 L BUN 17.0 Creatinine 0.7 Est GFR (CKD-EPI)AfAm 117.09 Est GFR (CKD-EPI)NonAf 101.02 POC Glucometer 82 Random Glucose 75 Calcium 8.9 Phosphorus 4.5 Magnesium 2.0 Total Bilirubin 0.4 AST 15 ALT 27 Alkaline Phosphatase 71 Troponin I Total Protein 7.8 Albumin 3.6 Triglycerides 84 Cholesterol 175 Total LDL Cholesterol 112 H HDL Cholesterol 59 Serum , Qual Opiates Screen Methadone Screen Barbiturate Screen Phencyclidine Screen Ur Amphetamines Screen MDMA (Ecstasy) Screen Benzodiazepines Screen Cocaine Screen U Marijuana (THC) Screen 05/16/19 05:34 WBC RBC Hgb Hct MCV MCH MCHC RDW Plt Count MPV Absolute Neuts (auto) Neutrophils % Lymphocytes % Monocytes % Eosinophils % Basophils % Nucleated RBC % Hypochromia Platelet Estimate Polychromasia Poikilocytosis Anisocytosis Microcytosis Macrocytosis Sodium Potassium Chloride Carbon Dioxide Anion Gap BUN Creatinine Est GFR (CKD-EPI)AfAm Est GFR (CKD-EPI)NonAf POC Glucometer 75 Random Glucose Calcium Phosphorus Magnesium Total Bilirubin AST ALT Alkaline Phosphatase Troponin I Total Protein Albumin Triglycerides Cholesterol Total LDL Cholesterol HDL Cholesterol Serum , Qual Opiates Screen Methadone Screen Barbiturate Screen Phencyclidine Screen Ur Amphetamines Screen MDMA (Ecstasy) Screen Benzodiazepines Screen Cocaine Screen U Marijuana (THC) Screen Active Medications Generic Name Dose Route Start Last Admin Trade Name Freq PRN Reason Stop Dose Admin Enoxaparin Sodium 40 mg 05/15/19 16:00 05/15/19 17:33 Lovenox - SQ Not Given DAILY [facility] Insulin Aspart 0 vial 05/15/19 16:00 05/16/19 05:44 Novolog Vial Sliding Scale - SQ Not Given Q6H [facility] Protocol Lisinopril 10 mg 05/15/19 17:00 05/15/19 17:25 Prinivil PO Not Given DAILY [facility] Methadone HCl 190 mg 05/16/19 10:00 Dolophine - PO DAILY [facility] Methocarbamol 500 mg 05/15/19 22:00 05/16/19 05:44 Robaxin - PO 500 mg TID [facility]RICE Administration Nicotine Polacrilex 2 mg 05/15/19 16:46 Nicorette Gum - BUC Q2H PRN WITHDRAWAL(CONT SUBST) Laboratory Tests 05/16/19 05:32 Triglycerides 84 Cholesterol 175 Total LDL Cholesterol 112 H HDL Cholesterol 59 Ambulatory Orders Metformin HCl [Glucophage] 1,000 mg PO DAILY 01/03/19 Lisinopril [Prinivil] 10 mg PO DAILY 14 Days #14 tablet 02/08/19 Methadone HCl 190 mg PO DAILY 05/15/19 Nicotine Polacrilex [Nicorette] 2 mg BC Q2H PRN 05/15/19 Quetiapine Fumarate [Seroquel] 100 tab PO HS 05/15/19 Current Medications Atorvastatin Calcium (Lipitor -) 40 mg PO HS [facility] Clopidogrel Bisulfate (Plavix -) 75 mg PO DAILY [facility] Last Admin: 05/16/19 11:39 Dose: 75 mg Enoxaparin Sodium (Lovenox -) 40 mg SQ DAILY [facility] Last Admin: 05/16/19 09:06 Dose: Not Given Insulin Aspart (Novolog Vial Sliding Scale -) 0 vial SQ Q6H [facility]; Protocol Last Admin: 05/16/19 16:28 Dose: Not Given Lisinopril (Prinivil) 10 mg PO DAILY [facility] Last Admin: 05/16/19 09:06 Dose: 10 mg Methadone HCl 160 mg/ (Methadone HCl 30 mg) 190 mg PO DAILY@0600 [facility] Last Admin: 05/16/19 09:03 Dose: 190 mg Methocarbamol (Robaxin -) 500 mg PO TID [facility] Last Admin: 05/16/19 13:28 Dose: 500 mg Nicotine Polacrilex (Nicorette Gum -) 2 mg BUC Q2H PRN PRN Reason: WITHDRAWAL(CONT SUBST) Last Admin: 05/16/19 13:28 Dose: 2 mg ECHO-05/16/19- LV size, thickness and fnl are nl. LVEF is nl. LVWM is nl. Trace to mild MR, TR. RVSP is nl. E/A reversal consistent with but not diagnostic of poor LV compliance. ASSESSMENT/PLAN: Pt is a 49yo F, with PMH of HTN, current smoker, on methadone program, polysubstance use disorder, Type II DM, Insomnia, Hep C (Treated), Bipolar Disorder, Depression, Post-Traumatic Stress Disorder, brought in from [facility] for chest pain x 1 day. #Chest pain R/O ACS Pt still reporting chest pain intermittently Per cards- normal EKG trops peaked ECHO Not likely candidate for stress test at this time as she is in detox/rehab Lipid profile-total chol-112 hgba1c- 5.9 Dr Lal Pt allergic to ASA, started on plavix Lipitor 40mg added #HTN Lisinopril 10mg daily #DM ISS BGM Q6H #Current smoker Nicotine gum #Methadone program Cont methadone 190mg daily #Insomnia Pt on seroquel Holding seroquel with prolonged QTC, hydroxyzine #Polysubstance use Utox - methadone and opiates, no cocaine Avoid BB Pt hardly uses alcohol- CIWA 0 #Bipolar Disorder/Depression/Post-Traumatic Stress Disorder Holding seroquel PPx-Lovenox Dispo: Pending resolution of chest pain for transfer back to [facility] Likely tomorrow Tele obs Visit type - Emergency Visit Emergency Visit: Yes ED Registration Date: 05/15/19 Care time: The patient presented to the Emergency Department on the above date and was hospitalized for further evaluation of their emergent condition. - New Patient This patient is new to me today: No - Critical Care Critical Care patient: No - Discharge Referral Referred to [facility] Med P.C.: No
[2019-05-16] MEDS ORDERED: PT OWN MED DRAWER 7, Y5N ONE ×3 (07:29→21:34)
[2019-05-16] MEDS ORDERED: METHADONE HCL 10 MG TABLET ONE (08:19)
[2019-05-16] MEDS ORDERED: METHADONE HCL 40 MG DISPERSABLE TABLET ONE (08:19)
[2019-05-16] MEDS: METHADONE 160 MG, METHADONE 30 MG PO SCH (09:03)
[2019-05-16] MEDS: LISINOPRIL 10 MG TABLET (FP) PO SCH (09:06)
[2019-05-16] MEDS: ENOXAPARIN NA (PORCINE) 40 MG/0.4 ML DISP.SYRIN SQ SCH (09:06)
[2019-05-16] MEDS: NICOTINE POLACRILEX 2 MG GUM BUC PRN ×5 (09:08→22:04)
[2019-05-16] MEDS ORDERED: METHADONE HCL 5 MG TABLET PO SCH (10:00)
--- NOTE | 2019-05-16 10:07 | CON.CARD ---
Consult Consult Specialty:: Cardiology Reason for Consultation:: cp - History of Present Illness History of Present Illness: 49 yof with PMHx of HTN, NIDDM, Anxiety/depression/PTSD/MDD, prior psychiatric hospitalizations, polysubstance abuse (cocaine, xanax, alcohol, prior h/o IVDU with heroine), Hepatitis C s/p treatment, on methadone maintenance in [facility] rehab since 04/26, admitted with chest pain. Patient was in her [facility] yesterday evening, while watching TV when had suddent onset of substernal chest pressure radiating to left arm, off an on, went to sleep woke this AM, had recurrent symptoms, found with abnormal EKG and prolonged QTc at [facility] sent to ED. Reports her pain resolved within an hour in the ED, no recurrent since, no fevers, chills, palpitations, dyspnea, diaphoresis. States no cocaine since 04/26/2019. Similar prior chest pain 2-3 times last year. Denies prior cardiac w/u, echo/ stress testing. - History Source History Provided By: Patient, Medical Record - Past Medical History ...LMP: 04/12/19 - Alcohol/Substance Use Hx Alcohol Use: No (denies alcohol abuse) - Smoking History Smoking history: Current every day smoker Have you smoked in the past 12 months: Yes Aproximately how many cigarettes per day: 10 Home Medications - Allergies Allergies/Adverse Reactions: Allergies Allergy/AdvReac Type Severity Reaction Status Date / Time aspirin Allergy Severe Difficulty Verified 05/15/19 12:28 Breathing - Home Medications Home Medications: Ambulatory Orders Metformin HCl [Glucophage] 1,000 mg PO DAILY 01/03/19 Lisinopril [Prinivil] 10 mg PO DAILY 14 Days #14 tablet 02/08/19 Methadone HCl 190 mg PO DAILY 05/15/19 Nicotine Polacrilex [Nicorette] 2 mg BC Q2H PRN 05/15/19 Quetiapine Fumarate [Seroquel] 100 tab PO HS 05/15/19 Family Disease History - Family Disease History Family Disease History: Diabetes: Grandparent (breast ca), Father, Mother ( ovarian?), Sister, [place]: Grandparent, Mother Review of Systems - Review of Systems Constitutional: reports: No Symptoms Eyes: reports: No Symptoms HENT: reports: No Symptoms Neck: reports: No Symptoms Cardiovascular: reports: Chest Pain Respiratory: reports: No Symptoms Gastrointestinal: reports: No Symptoms Genitourinary: reports: No Symptoms Breasts: reports: No Symptoms Reported Musculoskeletal: reports: No Symptoms Integumentary: reports: No Symptoms Neurological: reports: No Symptoms Endocrine: reports: No Symptoms Hematology/Lymphatic: reports: No Symptoms Psychiatric: reports: No Symptoms Vital Signs: Vital Signs Temperature 98.7 F 05/16/19 09:10 Pulse Rate 68 05/16/19 07:49 Respiratory Rate 17 05/16/19 07:49 Blood Pressure 144/96 05/16/19 07:49 O2 Sat by Pulse Oximetry (%) 97 05/15/19 22:15 Constitutional: Yes: Well Nourished, No Distress, Calm Eyes: Yes: WNL, Conjunctiva Clear, EOM Intact HENT: Yes: WNL, Atraumatic, Normocephalic Neck: Yes: WNL, Supple, Trachea Midline Respiratory: Yes: WNL, Regular, CTA Bilaterally Gastrointestinal: Yes: WNL, Normal Bowel Sounds Renal/: Yes: WNL Cardiovascular: Yes: WNL, Regular Rate and Rhythm Musculoskeletal: Yes: WNL Extremities: Yes: WNL Integumentary: Yes: WNL Neurological: Yes: WNL, Alert, Oriented ...Motor Strength: WNL Psychiatric: Yes: WNL, Alert, Oriented - Other Data Labs, Other Data: CBC, BMP 05/16/19 05:32 05/16/19 05:32 Troponin, BNP 05/15/19 05/15/19 12:27 18:19 Troponin I < 0.02 < 0.02 Troponin, BNP 05/15/19 05/15/19 12:27 18:19 Troponin I < 0.02 < 0.02 Imaging - Results Chest X-ray: Image Reviewed (no i/e) EKG: Image Reviewed (sr motion artifacts ? prolonged qt ? old iw mi ? =rep abn) Problem List - Problems (1) Chest pain Code(s): R07.9 - CHEST PAIN, UNSPECIFIED Qualifiers: Chest pain type: unspecified Qualified Code(s): R07.9 - Chest pain, unspecified (2) Prolonged Q-T interval on ECG Code(s): R94.31 - ABNORMAL ELECTROCARDIOGRAM [ECG] [EKG] (3) Alcohol abuse with physiological dependence Code(s): F10.20 - ALCOHOL DEPENDENCE, UNCOMPLICATED (4) Muscle spasm Code(s): M62.838 - OTHER MUSCLE SPASM (5) Muscle spasm of back Code(s): M62.830 - MUSCLE SPASM OF BACK (6) Sedative hypnotic or anxiolytic dependence Code(s): F13.20 - SEDATIVE, HYPNOTIC OR ANXIOLYTIC DEPENDENCE, UNCOMPLICATED (7) Substance-induced sleep disorder Code(s): F19.982 - OTH PSYCHOACTIVE SUBSTANCE USE, UNSP W SLEEP DISORDER (8) Alcohol dependence Code(s): F10.20 - ALCOHOL DEPENDENCE, UNCOMPLICATED (9) Anemia Code(s): D64.9 - ANEMIA, UNSPECIFIED (10) Benzodiazepine dependence Code(s): F13.20 - SEDATIVE, HYPNOTIC OR ANXIOLYTIC DEPENDENCE, UNCOMPLICATED (11) Bipolar disorder Code(s): F31.9 - BIPOLAR DISORDER, UNSPECIFIED (12) Cocaine dependence Code(s): F14.20 - COCAINE DEPENDENCE, UNCOMPLICATED Qualifiers: Substance use status: uncomplicated Qualified Code(s): F14.20 - Cocaine dependence, uncomplicated (13) Cocaine dependence Code(s): F14.20 - COCAINE DEPENDENCE, UNCOMPLICATED Qualifiers: Substance use status: uncomplicated Qualified Code(s): F14.20 - Cocaine dependence, uncomplicated (14) Diabetes Code(s): E11.9 - TYPE 2 DIABETES MELLITUS WITHOUT COMPLICATIONS Qualifiers: Diabetes mellitus type: type 2 Diabetes mellitus complication status: without complication (15) HTN (hypertension) Code(s): I10 - ESSENTIAL (PRIMARY) HYPERTENSION Qualifiers: Hypertension type: essential hypertension Qualified Code(s): I10 - Essential (primary) hypertension (16) Insomnia Code(s): G47.00 - INSOMNIA, UNSPECIFIED Qualifiers: Insomnia type: unspecified Qualified Code(s): G47.00 - Insomnia, unspecified (17) MDD (major depressive disorder), recurrent episode, moderate Code(s): F33.1 - MAJOR DEPRESSIVE DISORDER, RECURRENT, MODERATE (18) Major depressive disorder Code(s): F32.9 - MAJOR DEPRESSIVE DISORDER, SINGLE EPISODE, UNSPECIFIED (19) Methadone maintenance therapy patient Code(s): F11.20 - OPIOID DEPENDENCE, UNCOMPLICATED (20) Nicotine dependence Code(s): F17.200 - NICOTINE DEPENDENCE, UNSPECIFIED, UNCOMPLICATED Qualifiers: Nicotine product type: cigarettes Substance use status: uncomplicated Qualified Code(s): F17.210 - Nicotine dependence, cigarettes, uncomplicated (21) Non-compliance Code(s): Z91.19 - PATIENT'S NONCOMPLIANCE W OTH MEDICAL TREATMENT AND REGIMEN (22) Opioid dependence on agonist therapy Code(s): F11.20 - OPIOID DEPENDENCE, UNCOMPLICATED (23) PTSD (post-traumatic stress disorder) Code(s): F43.10 - POST-TRAUMATIC STRESS DISORDER, UNSPECIFIED (24) Substance induced mood disorder Code(s): F19.94 - OTH PSYCHOACTIVE SUBSTANCE USE, UNSP W MOOD DISORDER (25) Type 2 diabetes mellitus Code(s): E11.9 - TYPE 2 DIABETES MELLITUS WITHOUT COMPLICATIONS Qualifiers: Diabetes mellitus ticketing agent insulin use: without jail use Diabetes mellitus complication status: with other specified complication Qualified Code (s): E11.69 - Type 2 diabetes mellitus with other specified complication (26) Hepatitis C Code(s): B19.20 - UNSPECIFIED VIRAL HEPATITIS C WITHOUT HEPATIC COMA Assessment/Plan Pt is a 49yo F, with PMH of HTN, current smoker, on methadone program, polysubstance use disorder, Type II DM, Insomnia, Hep C (Treated), Bipolar Disorder, Depression, Post-Traumatic Stress Disorder, brought in from [facility] for chest pain x 1 day. Chest pain R/O ACS EKG changes Repeat EKG ASA trend trops ECHO Not likely candidate for stress test at this time as she is in detox/rehab. MIBI st when stable detox [facility] Lipid profile hgba1c HTN Lisinopril 10mg daily DM ISS BGM Q6H Current smoker Nicotine gum Methadone program Cont methadone 190mg daily Polysubstance use Utox pending Avoid BB Pt hardly uses alcohol- CIWA 0 Bipolar Disorder/Depression/Post-Traumatic Stress Disorder Holding seroquel
--- NOTE | 2019-05-16 10:43 | EKG ---
Test Reason : Blood Pressure : / mmHG Vent. Rate : 064 BPM Atrial Rate : 064 BPM P-R Int : 126 ms QRS Dur : 088 ms QT Int : 478 ms P-R-T Axes : 035 020 046 degrees QTc Int : 493 ms POOR DATA QUALITY, INTERPRETATION MAY BE ADVERSELY AFFECTED NORMAL SINUS RHYTHM NONSPECIFIC T WAVE ABNORMALITY ABNORMAL ECG WHEN COMPARED WITH ECG OF 15-MAY-2019 11:52, NO SIGNIFICANT CHANGE WAS FOUND Confirmed by TRISHA GARCIA, BRENDA ([id number]) on 05/16/2019 10:43:35 AM Referred By: Confirmed By:BRENDA RICO MD
--- NOTE | 2019-05-16 10:44 | EKG ---
Test Reason : Blood Pressure : / mmHG Vent. Rate : 067 BPM Atrial Rate : 067 BPM P-R Int : 152 ms QRS Dur : 088 ms QT Int : 486 ms P-R-T Axes : 063 021 066 degrees QTc Int : 513 ms NORMAL SINUS RHYTHM CANNOT RULE OUT INFERIOR INFARCT , AGE UNDETERMINED PROLONGED QT ABNORMAL ECG WHEN COMPARED WITH ECG OF 15-MAY-2019 06:38, NO SIGNIFICANT CHANGE WAS FOUND Confirmed by TRISHA GARCIA, BRENDA ([id number]) on 05/16/2019 10:43:44 AM Referred By: Confirmed By:BRENDA RICO MD
[2019-05-16] MEDS: CLOPIDOGREL BISULFATE 75 MG TABLET (FP) PO SCH (11:39)
--- NOTE | 2019-05-16 14:15 | ECHO ---
Name: MIGUEL NAGEL BAUER Exam:Adult Echocardiogram Study Date: 05/16/2019 10:33 AM Age: 49 yrs Height: 64 in Weight: 155 lb BSA: 1.8 m2 BP: 85/51 mmHg MMode/2D Measurements & Calculations IVSd: 0.87 cm Ao root diam: 2.9 cm LVIDd: 5.2 cm LA dimension: 3.2 cm LVIDs: 3.6 cm LVPWd: 0.75 cm EDV(Teich): 132.3 ml LVOT diam: 2.3 cm ESV(Teich): 55.9 ml Doppler Measurements & Calculations MV E max kunal: 73.5 cm/sec Ao V2 max: 136.4 cm/sec MV A max kunal: 85.4 cm/sec Ao max P.4 mmHg MV E/A: 0.86 Ao V2 mean: 92.5 cm/sec MV dec time: 0.27 sec Ao mean P.9 mmHg Ao V2 VTI: 27.7 cm CORNEL(I,D): 2.0 cm2 CORNEL(V,D): 1.8 cm2 LV V1 max P.4 mmHg MR max kunal: 192.7 cm/sec LV V1 mean P.89 mmHg MR max P.9 mmHg LV V1 max: 59.7 cm/sec LV V1 mean: 45.3 cm/sec LV V1 VTI: 13.1 cm SV(LVOT): 54.9 ml TR max kunal: 140.4 cm/sec TR max P.9 mmHg PI end-d kunal: 93.0 cm/sec Med Peak E' Kunal: 5.9 cm/sec Med E/e': 12.4 Lat Peak E' Kunal: 9.3 cm/sec Lat E/e': 7.9 Procedure A two-dimensional transthoracic echocardiogram with color flow and Doppler was performed. Left Ventricle The left ventricular size, thickness and function are normal. The left ventricular ejection fraction is normal. E/A reversal consistent with but not diagnostic of poor LV compliance. The left ventricular w all motion is normal. Right Ventricle The right ventricle is normal in size and function. Atria Normal left and right atrial size and function. Mitral Valve There is mild mitral valve thickening. There is no mitral valve stenosis. There is trace to mild mitr al regurgitation. Tricuspid Valve There is mild tricuspid valve thickening. There is no tricuspid stenosis. There is Trace to mild tric uspid regurgitation. Right ventricular systolic pressure is normal. Aortic Valve The aortic valve is not well visualized. No hemodynamically significant valvular aortic stenosis. No aortic regurgitation is present. Pulmonic Valve The pulmonic valve is not well visualized. Great Vessels The aortic root is normal size. Pericardium/Pleura There is no pericardial effusion. Interpretation Summary The left ventricular size, thickness and function are normal The left ventricular ejection fraction is normal. The left ventricular wall motion is normal. There is trace to mild mitral regurgitation. There is Trace to mild tricuspid regurgitation. Right ventricular systolic pressure is normal. E/A reversal consistent with but not diagnostic of poor LV compliance MD Jayme Lal 05/16/2019 02:15 PM
--- NOTE | 2019-05-16 18:14 | PN ---
Teaching Attending Note Name of Resident: Gisela Gallo Ramirez ATTENDING PHYSICIAN STATEMENT I saw and evaluated the patient. I reviewed the resident's note and discussed the case with the resident. I agree with the resident's findings and plan as documented. SUBJECTIVE: Patient complains of intermittent chest pain. OBJECTIVE: Vital Signs Period Temp Pulse Resp BP Sys/Nolasco Pulse Ox Last 24 Hr 98.4 F-98.7 F 62-84 17-20 109-170/67-96 97-99 HEART: S1S2, RRR LUNGS: Clear ABDOMEN: Soft, non-tender, non-distended, normal BS EXTREMITIES: No edema Laboratory Results - last 24 hr 05/15/19 05/15/19 05/15/19 18:19 18:40 21:34 WBC RBC Hgb Hct MCV MCH MCHC RDW Plt Count MPV Absolute Neuts (auto) Neutrophils % Lymphocytes % Monocytes % Eosinophils % Basophils % Nucleated RBC % Sodium Potassium Chloride Carbon Dioxide Anion Gap BUN Creatinine Est GFR (CKD-EPI)AfAm Est GFR (CKD-EPI)NonAf POC Glucometer 82 Random Glucose Hemoglobin A1c % Calcium Phosphorus Magnesium Total Bilirubin AST ALT Alkaline Phosphatase Troponin I < 0.02 Total Protein Albumin Triglycerides Cholesterol Total LDL Cholesterol HDL Cholesterol Opiates Screen Negative Methadone Screen Positive A* Barbiturate Screen Negative Phencyclidine Screen Negative Ur Amphetamines Screen Negative MDMA (Ecstasy) Screen Negative Benzodiazepines Screen Positive A* Cocaine Screen Negative U Marijuana (THC) Screen Negative 05/16/19 05/16/19 05/16/19 05:10 05:32 05:32 WBC 6.8 RBC 4.42 Hgb 12.1 Hct 37.7 MCV 85.4 MCH 27.4 MCHC 32.1 RDW 21.1 H Plt Count 349 MPV 8.7 Absolute Neuts (auto) 3.1 Neutrophils % 46.2 Lymphocytes % 42.4 H Monocytes % 8.3 Eosinophils % 2.6 Basophils % 0.5 Nucleated RBC % 0 Sodium 139 Potassium 4.5 Chloride 101 Carbon Dioxide 31 Anion Gap 7 L BUN 17.0 Creatinine 0.7 Est GFR (CKD-EPI)AfAm 117.09 Est GFR (CKD-EPI)NonAf 101.02 POC Glucometer Random Glucose 75 Hemoglobin A1c % 5.9 Calcium 8.9 Phosphorus 4.5 Magnesium 2.0 Total Bilirubin 0.4 AST 15 ALT 27 Alkaline Phosphatase 71 Troponin I Total Protein 7.8 Albumin 3.6 Triglycerides 84 Cholesterol 175 Total LDL Cholesterol 112 H HDL Cholesterol 59 Opiates Screen Methadone Screen Barbiturate Screen Phencyclidine Screen Ur Amphetamines Screen MDMA (Ecstasy) Screen Benzodiazepines Screen Cocaine Screen U Marijuana (THC) Screen 05/16/19 05/16/19 05/16/19 05:34 11:21 16:20 WBC RBC Hgb Hct MCV MCH MCHC RDW Plt Count MPV Absolute Neuts (auto) Neutrophils % Lymphocytes % Monocytes % Eosinophils % Basophils % Nucleated RBC % Sodium Potassium Chloride Carbon Dioxide Anion Gap BUN Creatinine Est GFR (CKD-EPI)AfAm Est GFR (CKD-EPI)NonAf POC Glucometer 75 169 123 Random Glucose Hemoglobin A1c % Calcium Phosphorus Magnesium Total Bilirubin AST ALT Alkaline Phosphatase Troponin I Total Protein Albumin Triglycerides Cholesterol Total LDL Cholesterol HDL Cholesterol Opiates Screen Methadone Screen Barbiturate Screen Phencyclidine Screen Ur Amphetamines Screen MDMA (Ecstasy) Screen Benzodiazepines Screen Cocaine Screen U Marijuana (THC) Screen Current Medications Generic Name Dose Route Start Last Admin Trade Name Freq PRN Reason Stop Dose Admin Clopidogrel Bisulfate 75 mg 05/16/19 11:00 05/16/19 11:39 Plavix - PO 75 mg DAILY PATRICE Administration Enoxaparin Sodium 40 mg 05/15/19 16:00 05/16/19 09:06 Lovenox - SQ Not Given DAILY [facility] Insulin Aspart 0 vial 05/15/19 16:00 05/16/19 16:28 Novolog Vial Sliding Scale - SQ Not Given Q6H [facility] Protocol Lisinopril 10 mg 05/15/19 17:00 05/16/19 09:06 Prinivil PO 10 mg DAILY [facility] Administration Methadone HCl 160 mg/ 190 mg 05/16/19 07:30 05/16/19 09:03 Methadone HCl 30 mg PO 190 mg DAILY@0600 [facility] Administration Methocarbamol 500 mg 05/15/19 22:00 05/16/19 13:28 Robaxin - PO 500 mg TID [facility] Administration Nicotine Polacrilex 2 mg 05/15/19 16:46 05/16/19 13:28 Nicorette Gum - BUC 2 mg Q2H PRN Administration WITHDRAWAL(CONT SUBST) ASSESSMENT AND PLAN: This is a 49 year old woman with a history of HTN, type 2 DM, anxiety, depression, PTSD, polysubstance abuse, hepatitis C who was sent to the ED from [facility] for chest pain. 1. Chest pain - Troponin negative x2 - On Plavix (allergic to aspirin) per cardiology - Echo shows normal LV, normal LVEF, normal wall motion, trace to mild MR, trace to mild TR, normal RVSP, E/A reversal - Stress test per cardiology 2. Prolonged QTc - Monitor EKG - Patient on methadone - avoid other QT prolonging agents 3. HTN - Continue lisinopril 4. Hyperlipidemia - Start Lipitor 5. Type 2 DM - HgbA1c 5.9 - Continue Novolog sliding scale 6. Depression, anxiety, PTSD 7. Polysubstance abuse - On methadone maintenance 8. Hepatitis C, previously treated 9. Nicotine dependence - Continue nicotine replacement
[2019-05-16] MEDS: ATORVASTATIN CA 40 MG TABLET (FP) PO SCH (21:36)
[2019-05-17] MEDS: INSULIN SLIDING SCALE (NOVOLOG) 1 VIAL SQ SCH ×4 (04:21→21:47)
[2019-05-17 05:58] LABS: BASO % 0.7 % (0-2.0); EOS % 2.4 % (0-4.5); HEMATOCRIT 41.8 % (32.4-45.2); HEMOGLOBIN 13.4 GM/dL (10.7-15.3); MCH 27.7 pg (25.7-33.7); MCHC 32.1 g/dl (32.0-36.0); MEAN CELL VOLUME 86.4 fl (80-96); MEAN PLT VOLUME 8.5 fl (7.5-11.1); MONO % 7.5 % (3.8-10.2); NEUT % 49.4 % (42.8-82.8); PLATELET COUNT 426 K/MM3 (134-434); RBC 4.84 M/mm3 (3.60-5.2); RDW 21.7 % (11.6-15.6); WHITE BLOOD COUNT 9.5 K/mm3 (4.0-10.0)
[2019-05-17] MEDS ORDERED: METHADONE HCL 10 MG TABLET ONE (06:16)
[2019-05-17] MEDS ORDERED: METHADONE HCL 40 MG DISPERSABLE TABLET ONE (06:17)
[2019-05-17] MEDS ORDERED: PT OWN MED DRAWER 7, Y5N ONE ×3 (06:17→21:27)
[2019-05-17] MEDS: METHADONE 160 MG, METHADONE 30 MG PO SCH (06:20)
[2019-05-17] MEDS: METHOCARBAMOL 500 MG TABLET PO SCH (06:22)
[2019-05-17] MEDS: NICOTINE POLACRILEX 2 MG GUM BUC PRN ×3 (06:22→21:47)
[2019-05-17 06:28] LABS: ALBUMIN 3.8 g/dl (3.4-5.0); BILIRUBIN,TOTAL 0.3 mg/dL (0.2-1); BLOOD UREA NITROGEN 14.8 mg/dL (7-18); CALCIUM 9.4 mg/dL (8.5-10.1); CREATININE 0.8 mg/dL (0.55-1.3); MAGNESIUM 2.2 mg/dL (1.8-2.4); PHOSPHOROUS 5.2 mg/dL (2.5-4.9); POTASSIUM 4.5 mmol/L (3.5-5.1); TOT PROT 8.7 g/dl (6.4-8.2)
--- NOTE | 2019-05-17 07:02 | PN ---
Physical Exam: SUBJECTIVE: Patient seen and examined. No chest pain currently, no SOB. Seen by cardiology no need for stress test during this hospitalization. Pt may return to rehab. OBJECTIVE: Vital Signs Period Temp Pulse Resp BP Sys/Nolasco Pulse Ox Last 24 Hr 98.1 F-98.7 F 59-84 12-18 120-170/78-96 99-99 Vital Signs Temp 98.1 F 05/17/19 05:00 Pulse 60 05/17/19 05:00 Resp 12 05/17/19 05:00 BP 120/78 05/17/19 05:00 Pulse Ox 99 05/16/19 21:00 Intake & Output 05/16/19 05/16/19 05/17/19 11:59 23:59 11:59 Intake Total 420 625 250 Balance 420 625 250 Intake: Oral 420 625 250 Other: Voiding Method Toilet Toilet Toilet # Unmeasured Voids Void 0 0 1 Bowel Movement No No GENERAL: The patient is awake, alert, and fully oriented, in no acute distress. EYES: PERRL, extraocular movements intact ENT: moist mucous membranes. NECK: supple. LUNGS: Breath sounds equal, clear to auscultation bilaterally, no wheezes, no crackles HEART: Regular rate and rhythm, S1, S2 ABDOMEN: Soft, nontender, nondistended, normoactive bowel sounds EXTREMITIES: 2+ pulses, warm, well-perfused, no edema. NEUROLOGICAL: Cranial nerves II through XII grossly intact. Normal speech, gait not observed. Laboratory Results - last 24 hr 05/16/19 05/16/19 05/16/19 05:10 11:21 16:20 WBC RBC Hgb Hct MCV MCH MCHC RDW Plt Count MPV Absolute Neuts (auto) Neutrophils % Lymphocytes % Monocytes % Eosinophils % Basophils % Nucleated RBC % Sodium Potassium Chloride Carbon Dioxide Anion Gap BUN Creatinine Est GFR (CKD-EPI)AfAm Est GFR (CKD-EPI)NonAf POC Glucometer 169 123 Random Glucose Hemoglobin A1c % 5.9 Calcium Phosphorus Magnesium Total Bilirubin AST ALT Alkaline Phosphatase Total Protein Albumin 05/16/19 05/17/19 05/17/19 21:40 04:18 05:20 WBC 9.5 RBC 4.84 Hgb 13.4 Hct 41.8 MCV 86.4 MCH 27.7 MCHC 32.1 RDW 21.7 H Plt Count 426 D MPV 8.5 Absolute Neuts (auto) 4.7 Neutrophils % 49.4 Lymphocytes % 40.0 Monocytes % 7.5 Eosinophils % 2.4 Basophils % 0.7 Nucleated RBC % 0 Sodium Potassium Chloride Carbon Dioxide Anion Gap BUN Creatinine Est GFR (CKD-EPI)AfAm Est GFR (CKD-EPI)NonAf POC Glucometer 86 117 Random Glucose Hemoglobin A1c % Calcium Phosphorus Magnesium Total Bilirubin AST ALT Alkaline Phosphatase Total Protein Albumin 05/17/19 05:20 WBC RBC Hgb Hct MCV MCH MCHC RDW Plt Count MPV Absolute Neuts (auto) Neutrophils % Lymphocytes % Monocytes % Eosinophils % Basophils % Nucleated RBC % Sodium 137 Potassium 4.5 Chloride 100 Carbon Dioxide 33 H Anion Gap 3 L BUN 14.8 Creatinine 0.8 Est GFR (CKD-EPI)AfAm 99.63 Est GFR (CKD-EPI)NonAf 85.96 POC Glucometer Random Glucose 89 Hemoglobin A1c % Calcium 9.4 Phosphorus 5.2 H Magnesium 2.2 Total Bilirubin 0.3 AST 18 ALT 29 Alkaline Phosphatase 80 Total Protein 8.7 H Albumin 3.8 Active Medications Generic Name Dose Route Start Last Admin Trade Name Freq PRN Reason Stop Dose Admin Atorvastatin Calcium 40 mg 05/16/19 22:00 05/16/19 21:36 Lipitor - PO 40 mg HS PATRICE Administration Clopidogrel Bisulfate 75 mg 05/16/19 11:00 05/16/19 11:39 Plavix - PO 75 mg DAILY [facility] Administration Enoxaparin Sodium 40 mg 05/15/19 16:00 05/16/19 09:06 Lovenox - SQ Not Given DAILY [facility] Insulin Aspart 0 vial 05/15/19 16:00 05/17/19 04:21 Novolog Vial Sliding Scale - SQ Not Given Q6H [facility] Protocol Lisinopril 10 mg 05/15/19 17:00 05/16/19 09:06 Prinivil PO 10 mg DAILY PATR[facility] Administration Methadone HCl 160 mg/ 190 mg 05/16/19 07:30 05/17/19 06:20 Methadone HCl 30 mg PO 190 mg DAILY@0600 PATR[facility] Administration Methocarbamol 500 mg 05/15/19 22:00 05/17/19 06:22 Robaxin - PO 500 mg TID PATRICE Administration Nicotine Polacrilex 2 mg 05/15/19 16:46 05/17/19 06:22 Nicorette Gum - BUC 2 mg Q2H PRN Administration WITHDRAWAL(CONT SUBST) ECHO-05/16/19- LV size, thickness and fnl are nl. LVEF is nl. LVWM is nl. Trace to mild MR, TR. RVSP is nl. E/A reversal consistent with but not diagnostic of poor LV compliance. ASSESSMENT/PLAN: Pt is a 49yo F, with PMH of HTN, current smoker, on methadone program, polysubstance use disorder, Type II DM, Insomnia, Hep C (Treated), Bipolar Disorder, Depression, Post-Traumatic Stress Disorder, brought in from [facility] for chest pain x 1 day. #Chest pain R/O ACS No more chest pain trops peaked ECHO Not likely candidate for stress test at this time -can do stress test as an outpatient Lipid profile-total chol-112 hgba1c- 5.9 Dr Lal Pt allergic to ASA, started on plavix Lipitor 40mg added #HTN Lisinopril 10mg daily #DM ISS BGM Q6H #Current smoker Nicotine gum #Methadone program Cont methadone 190mg daily #Insomnia Pt on seroquel Holding seroquel with prolonged QTC, stop hydroxyzine- QTC still prolonged went from 513 (05/15/19) to 543 (05/17/19) Needs close outpatient monitoring of QTC #Polysubstance use Utox - methadone and opiates, no cocaine Avoid BB Pt hardly uses alcohol- CIWA 0 #Bipolar Disorder/Depression/Post-Traumatic Stress Disorder Holding seroquel PPx-Lovenox Dispo: for transfer back to [facility] Tele obs Visit type - Emergency Visit Emergency Visit: Yes ED Registration Date: 05/15/19 Care time: The patient presented to the Emergency Department on the above date and was hospitalized for further evaluation of their emergent condition. - New Patient This patient is new to me today: No - Critical Care Critical Care patient: No - Discharge Referral Referred to [facility] Med P.C.: No
--- NOTE | 2019-05-17 07:45 | PN ---
Progress Note (short form) - Note Progress Note: asymptomatic. [place] [facility] denies Cp, SOB, fever, chills, N/V/C/D Current Medications Generic Name Dose Route Start Last Admin Trade Name Freq PRN Reason Stop Dose Admin Atorvastatin Calcium 40 mg 05/16/19 22:00 05/16/19 21:36 Lipitor - PO 40 mg HS PATRICE Administration Clopidogrel Bisulfate 75 mg 05/16/19 11:00 05/16/19 11:39 Plavix - PO 75 mg DAILY [facility] Administration Enoxaparin Sodium 40 mg 05/15/19 16:00 05/16/19 09:06 Lovenox - SQ Not Given DAILY [facility] Insulin Aspart 0 vial 05/15/19 16:00 05/17/19 04:21 Novolog Vial Sliding Scale - SQ Not Given Q6H [facility] Protocol Lisinopril 10 mg 05/15/19 17:00 05/16/19 09:06 Prinivil PO 10 mg DAILY [facility] Administration Methadone HCl 160 mg/ 190 mg 05/16/19 07:30 05/17/19 06:20 Methadone HCl 30 mg PO 190 mg DAILY@0600 [facility] Administration Methocarbamol 500 mg 05/15/19 22:00 05/17/19 06:22 Robaxin - PO 500 mg TID PATRICE Administration Nicotine Polacrilex 2 mg 05/15/19 16:46 05/17/19 06:22 Nicorette Gum - BUC 2 mg Q2H PRN Administration WITHDRAWAL(CONT SUBST) Last Vital Signs Temp Pulse Resp BP Pulse Ox 98.1 F 60 12 120/78 99 05/17/19 05:00 05/17/19 05:00 05/17/19 05:00 05/17/19 05:00 05/16/19 21:00 General NAD CV S1 S2 RRR no murmrur/rub/gallop no chest wall tenderness Lungs CTA B/L no wheezing/rales/rhonchi Abdomen soft NT/ND Extremities no pedal edema CBCD WBC 9.5 K/mm3 (4.0-10.0) 05/17/19 05:20 RBC 4.84 M/mm3 (3.60-5.2) 05/17/19 05:20 Hgb 13.4 GM/dL (10.7-15.3) 05/17/19 05:20 Hct 41.8 % (32.4-45.2) 05/17/19 05:20 MCV 86.4 fl (80-96) 05/17/19 05:20 MCHC 32.1 g/dl (32.0-36.0) 05/17/19 05:20 RDW 21.7 % (11.6-15.6) H 05/17/19 05:20 Plt Count 426 K/MM3 (134-434) D 05/17/19 05:20 MPV 8.5 fl (7.5-11.1) 05/17/19 05:20 CMP Sodium 137 mmol/L (136-145) 05/17/19 05:20 Potassium 4.5 mmol/L (3.5-5.1) 05/17/19 05:20 Chloride 100 mmol/L (98-107) 05/17/19 05:20 Carbon Dioxide 33 mmol/L (21-32) H 05/17/19 05:20 Anion Gap 3 MMOL/L (8-16) L 05/17/19 05:20 BUN 14.8 mg/dL (7-18) 05/17/19 05:20 Creatinine 0.8 mg/dL (0.55-1.3) 05/17/19 05:20 Calcium 9.4 mg/dL (8.5-10.1) 05/17/19 05:20 Total Bilirubin 0.3 mg/dL (0.2-1) 05/17/19 05:20 AST 18 U/L (15-37) 05/17/19 05:20 ALT 29 U/L (13-61) 05/17/19 05:20 Alkaline Phosphatase 80 U/L (45-117) 05/17/19 05:20 Total Protein 8.7 g/dl (6.4-8.2) H 05/17/19 05:20 Albumin 3.8 g/dl (3.4-5.0) 05/17/19 05:20 Assessment and PLan 49 year old woman with a history of HTN, type 2 DM, anxiety, depression, PTSD, polysubstance abuse, hepatitis C who [place] [facility]. 1. Chest pain- trops neg x2. on plavix due to asa allergy. will need Stress test. will d/w cardio to be done inpatient vs outpatient. will d/w with them today 2. Prolonged QTc- Patient on methadone. monitor EKG. avoid other QT prolonging agents 3. HTN- Continue lisinopril 4. Hyperlipidemia- Started on Lipitor 5. Type 2 DM- HgbA1c 5.9. Continue Novolog sliding scale. can resume metformin as outpatient 6. Depression, anxiety, PTSD 7. Polysubstance abuse- On methadone maintenance 8. Hepatitis C, previously treated 9. Nicotine dependence- Continue nicotine replacement 10. will d/w cardio if needs stress test. plan [place] [facility] [place] medically cleared to complete inpatient rehab Visit type - Emergency Visit Emergency Visit: Yes ED Registration Date: 05/15/19 Care time: The patient presented to the Emergency Department on the above date and was hospitalized for further evaluation of their emergent condition. - New Patient This patient is new to me today: Yes Date on this admission: 05/17/19 - Critical Care Critical Care patient: No - Discharge Referral Referred to [facility] Med P.C.: No Physician Referral: Delfino Amaya DO (Neph)
--- NOTE | 2019-05-17 07:53 | PN ---
Progress Note (short form) - Note Progress Note: Coverage for Dr. Albino Lal Chief Complaint: Events noted, notes reviewed, denies any chest pain or dysnea History of Present Illness: Seen and examined on telemetry. Events noted, notes reviewed, denies any chest pain or dysnea Echocardiography dated 05/16/2019 revealed normal LV size and function, normal RV size and function, trace to mild MR and TR - Current Medication List Current Medications Atorvastatin Calcium (Lipitor -) 40 mg PO HS [facility] Last Admin: 05/16/19 21:36 Dose: 40 mg Clopidogrel Bisulfate (Plavix -) 75 mg PO DAILY [facility] Last Admin: 05/16/19 11:39 Dose: 75 mg Enoxaparin Sodium (Lovenox -) 40 mg SQ DAILY [facility] Last Admin: 05/16/19 09:06 Dose: Not Given Insulin Aspart (Novolog Vial Sliding Scale -) 0 vial SQ Q6H [facility]; Protocol Last Admin: 05/17/19 04:21 Dose: Not Given Lisinopril (Prinivil) 10 mg PO DAILY [facility] Last Admin: 05/16/19 09:06 Dose: 10 mg Methadone HCl 160 mg/ (Methadone HCl 30 mg) 190 mg PO DAILY@0600 [facility] Last Admin: 05/17/19 06:20 Dose: 190 mg Methocarbamol (Robaxin -) 500 mg PO TID [facility] Last Admin: 05/17/19 06:22 Dose: 500 mg Nicotine Polacrilex (Nicorette Gum -) 2 mg BUC Q2H PRN PRN Reason: WITHDRAWAL(CONT SUBST) Last Admin: 05/17/19 06:22 Dose: 2 mg Review of Systems Cardiovascular: As noted above Respiratory: denies Cough or Sputum Production Gastrointestinal: denies: Nausea, Vomiting, Diarrhea, Constipation or Abdominal Discomfort Musculoskeletal: No Symptoms Reported - Objective Vital Signs: Last Vital Signs Temp Pulse Resp BP Pulse Ox 98.1 F 60 12 120/78 99 05/17/19 05:00 05/17/19 05:00 05/17/19 05:00 05/17/19 05:00 05/16/19 21:00 Intake & Output 05/14/19 05/15/19 05/16/19 05/17/19 23:59 23:59 23:59 23:59 Intake Total 300 1045 250 Balance 300 1045 250 Weight 159 lb 8 oz Constitutional: No Distress, Calm Neck: Supple Negative JVD No Bruit Respiratory: Clear to A&P Bilaterally Cardiovascular: S1 S2 Regular Rate Rhythm Gastrointestinal: Soft Benign Normal Bowel Sounds Ext: Negative Edema Labs: CBC, BMP 05/17/19 05:20 05/17/19 05:20 Hepatic Panel Total Bilirubin 0.3 mg/dL (0.2-1) 05/17/19 05:20 AST 18 U/L (15-37) 05/17/19 05:20 ALT 29 U/L (13-61) 05/17/19 05:20 Alkaline Phosphatase 80 U/L (45-117) 05/17/19 05:20 Albumin 3.8 g/dl (3.4-5.0) 05/17/19 05:20 ASSESSMENT: 1. Chest pain syndrome with no evidence of ACS 2. HTN 3. DM 4. Hypercholesterolemia 5. Polysubstance use 6. Bipolar Disorder/Depression/Post-Traumatic Stress Disorder 7. Tobacco abuse PLAN: 1. Continue Lisinopril 2. Continue Lipitor 3. Continue ASA 4. Further cardiovascular evaluation as outpatient 5. Can be D/C to detox/transferred to floor care, from the cardiovascular point of view Please recall as needed Keith Lainez M.D.
[2019-05-17] MEDS: CLOPIDOGREL BISULFATE 75 MG TABLET (FP) PO SCH (09:38)
[2019-05-17] MEDS: ENOXAPARIN NA (PORCINE) 40 MG/0.4 ML DISP.SYRIN SQ SCH (09:38)
[2019-05-17] MEDS: LISINOPRIL 10 MG TABLET (FP) PO SCH (09:39)
--- NOTE | 2019-05-17 16:54 | EKG ---
Test Reason : Blood Pressure : / mmHG Vent. Rate : 058 BPM Atrial Rate : 058 BPM P-R Int : 144 ms QRS Dur : 092 ms QT Int : 554 ms P-R-T Axes : 061 026 049 degrees QTc Int : 543 ms SINUS BRADYCARDIA NONSPECIFIC T WAVE ABNORMALITY PROLONGED QT ABNORMAL ECG WHEN COMPARED WITH ECG OF 15-MAY-2019 16:16, NO SIGNIFICANT CHANGE WAS FOUND Confirmed by YASMIN VENCES MD ([id number]) on 05/17/2019 4:54:09 PM Referred By: Rina CHAPARRO Confirmed By:YASMIN VENCES MD
[2019-05-17] MEDS: ATORVASTATIN CA 40 MG TABLET (FP) PO SCH ×2 (21:47→21:50)
[2019-05-17] MEDS ORDERED: MELATONIN 5 MG TABLETS PO ONE (23:56)
[2019-05-18] MEDS: METHOCARBAMOL 500 MG TABLET PO SCH ×2 (00:19→06:32)
[2019-05-18] MEDS ORDERED: PT OWN MED DRAWER 7, Y5N ONE ×3 (00:59→06:36)
[2019-05-18 06:17] VITALS: TEMP 98
[2019-05-18 06:19] LABS: BASO % 0.5 % (0-2.0); EOS % 2.2 % (0-4.5); HEMATOCRIT 40.4 % (32.4-45.2); LYMPH % 45.9 % (8-40); MCH 27.6 pg (25.7-33.7); MCHC 32.1 g/dl (32.0-36.0); MEAN CELL VOLUME 85.8 fl (80-96); MEAN PLT VOLUME 8.6 fl (7.5-11.1); MONO % 7.5 % (3.8-10.2); NEUT % 43.9 % (42.8-82.8); PLATELET COUNT 399 K/MM3 (134-434); RBC 4.71 M/mm3 (3.60-5.2); RDW 21.8 % (11.6-15.6); WHITE BLOOD COUNT 8.1 K/mm3 (4.0-10.0)
[2019-05-18] MEDS ORDERED: METHADONE HCL 40 MG DISPERSABLE TABLET ONE (06:23)
[2019-05-18] MEDS ORDERED: METHADONE HCL 10 MG TABLET ONE (06:23)
[2019-05-18 06:26] LABS: ALBUMIN 4.2 g/dl (3.4-5.0); BILIRUBIN,TOTAL 0.2 mg/dL (0.2-1); BLOOD UREA NITROGEN 18.9 mg/dL (7-18); CALCIUM 7.4 mg/dL (8.5-10.1); CREATININE 0.7 mg/dL (0.55-1.3); MAGNESIUM 1.9 mg/dL (1.8-2.4); POTASSIUM 5.1 mmol/L (3.5-5.1); TOT PROT 8.3 g/dl (6.4-8.2)
[2019-05-18] MEDS: METHADONE 160 MG, METHADONE 30 MG PO SCH (06:32)
[2019-05-18] MEDS: INSULIN SLIDING SCALE (NOVOLOG) 1 VIAL SQ SCH (06:32)
[2019-05-18] MEDS: NICOTINE POLACRILEX 2 MG GUM BUC PRN ×2 (06:38→09:40)
[2019-05-18 06:44] LABS: PHOSPHOROUS 4.7 mg/dL (2.5-4.9)
--- NOTE | 2019-05-18 09:05 | PN ---
Physical Exam: SUBJECTIVE: Patient seen and examined OBJECTIVE: Vital Signs Period Temp Pulse Resp BP Sys/Nolasco Pulse Ox Last 24 Hr 97.6 F-98 F 58-68 13-18 121-151/76-92 99 GENERAL: The patient is awake, alert, and fully oriented, in no acute distress. HEAD: Normal with no signs of trauma. EYES: PERRL, extraocular movements intact, sclera anicteric, conjunctiva clear. No ptosis. ENT: Ears normal, nares patent, oropharynx clear without exudates, moist mucous membranes. NECK: Trachea midline, full range of motion, supple. LUNGS: Breath sounds equal, clear to auscultation bilaterally, no wheezes, no crackles, no accessory muscle use. HEART: Regular rate and rhythm, S1, S2 without murmur, rub or gallop. ABDOMEN: Soft, nontender, nondistended, normoactive bowel sounds, no guarding, no rebound, no hepatosplenomegaly, no masses. EXTREMITIES: 2+ pulses, warm, well-perfused, no edema. NEUROLOGICAL: Cranial nerves II through XII grossly intact. Normal speech, gait not observed. PSYCH: Normal mood, normal affect. SKIN: Warm, dry, normal turgor, no rashes or lesions noted Laboratory Results - last 24 hr 05/17/19 05/17/19 05/17/19 11:58 17:28 21:20 WBC RBC Hgb Hct MCV MCH MCHC RDW Plt Count MPV Absolute Neuts (auto) Neutrophils % Lymphocytes % Monocytes % Eosinophils % Basophils % Nucleated RBC % Sodium Potassium Chloride Carbon Dioxide Anion Gap BUN Creatinine Est GFR (CKD-EPI)AfAm Est GFR (CKD-EPI)NonAf POC Glucometer 92 111 103 Random Glucose Calcium Phosphorus Magnesium Total Bilirubin AST ALT Alkaline Phosphatase Total Protein Albumin 05/18/19 05/18/19 05/18/19 05:13 05:13 05:24 WBC 8.1 RBC 4.71 Hgb 13.0 Hct 40.4 MCV 85.8 MCH 27.6 MCHC 32.1 RDW 21.8 H Plt Count 399 MPV 8.6 Absolute Neuts (auto) 3.6 Neutrophils % 43.9 Lymphocytes % 45.9 H Monocytes % 7.5 Eosinophils % 2.2 Basophils % 0.5 Nucleated RBC % 0 Sodium 136 Potassium 5.1 Chloride 101 Carbon Dioxide 31 Anion Gap 4 L BUN 18.9 H Creatinine 0.7 Est GFR (CKD-EPI)AfAm 117.09 Est GFR (CKD-EPI)NonAf 101.02 POC Glucometer 93 Random Glucose 90 Calcium 7.4 L Phosphorus 4.7 Magnesium 1.9 Total Bilirubin 0.2 AST 12 L ALT 26 Alkaline Phosphatase 78 Total Protein 8.3 H Albumin 4.2 Active Medications Generic Name Dose Route Start Last Admin Trade Name Freq PRN Reason Stop Dose Admin Atorvastatin Calcium 40 mg 05/16/19 22:00 05/17/19 21:50 Lipitor - PO Not Given HS [facility] Clopidogrel Bisulfate 75 mg 05/16/19 11:00 05/17/19 09:38 Plavix - PO 75 mg DAILY [facility] Administration Enoxaparin Sodium 40 mg 05/15/19 16:00 05/17/19 09:38 Lovenox - SQ 40 mg DAILY [facility] Administration Insulin Aspart 1 vial 05/17/19 16:30 05/18/19 06:32 Novolog Vial Sliding Scale - SQ Not Given ACHS [facility] Protocol Lisinopril 10 mg 05/15/19 17:00 05/17/19 09:39 Prinivil PO 10 mg DAILY [facility] Administration Methadone HCl 160 mg/ 190 mg 05/16/19 07:30 05/18/19 06:32 Methadone HCl 30 mg PO 190 mg DAILY@0600 [facility] Administration Methocarbamol 500 mg 05/17/19 23:57 05/18/19 06:32 Robaxin - PO 500 mg TID [facility] Administration Nicotine Polacrilex 2 mg 05/15/19 16:46 05/18/19 06:38 Nicorette Gum - BUC 2 mg Q2H PRN Administration WITHDRAWAL(CONT SUBST) ASSESSMENT/PLAN:
[2019-05-18] MEDS: ENOXAPARIN NA (PORCINE) 40 MG/0.4 ML DISP.SYRIN SQ SCH (09:33)
[2019-05-18] MEDS: CLOPIDOGREL BISULFATE 75 MG TABLET (FP) PO SCH (09:34)
[2019-05-18] MEDS: LISINOPRIL 10 MG TABLET (FP) PO SCH (09:34)
[2019-05-18 10:46] VITALS: BP 148/98; PULSE 62
--- NOTE | 2019-05-18 10:57 | PN ---
Teaching Attending Note Name of Resident: Gisela Ramirez ATTENDING PHYSICIAN STATEMENT I saw and evaluated the patient. I reviewed the resident's note and discussed the case with the resident. I agree with the resident's findings and plan as documented with exceptions below. SUBJECTIVE: Patient seen and examined, no further chest pain, tearful, no SI/HI. Anxious but no other concerns OBJECTIVE: Vital Signs Period Temp Pulse Resp BP Sys/Nolasco Pulse Ox Last 24 Hr 97.6 F-98 F 58-68 13-20 121-151/76-98 99 Intake & Output 05/15/19 05/16/19 05/17/19 05/18/19 23:59 23:59 23:59 23:59 Intake Total 300 1045 660 180 Balance 300 1045 660 180 Weight 159 lb 8 oz General: sitting in bed, tearful but no acute distress CVS:S1s2 regular Chest: CTAB, no rales or wheezing Abdomen:soft, NT, ND, pos bowel sounds Extremities: No edema Neck: soft supple, no JVD Home Medications Medication Instructions Recorded Metformin HCl [Glucophage] 1,000 mg PO DAILY 01/03/19 Lisinopril [Prinivil] 10 mg PO DAILY 14 Days #14 tablet 02/08/19 Methadone HCl 190 mg PO DAILY 05/15/19 Nicotine Polacrilex [Nicorette] 2 mg BC Q2H PRN 05/15/19 Atorvastatin Ca [Lipitor] 40 mg PO HS #30 tablet 05/18/19 Clopidogrel Bisulfate [Plavix -] 75 mg PO DAILY tablet 05/18/19 Active Medications Atorvastatin Calcium (Lipitor -) 40 mg PO HS [facility] Last Admin: 05/17/19 21:50 Dose: Not Given Clopidogrel Bisulfate (Plavix -) 75 mg PO DAILY [facility] Last Admin: 05/18/19 09:34 Dose: 75 mg Enoxaparin Sodium (Lovenox -) 40 mg SQ DAILY [facility] Last Admin: 05/18/19 09:33 Dose: 40 mg Insulin Aspart (Novolog Vial Sliding Scale -) 1 vial SQ [facility]; Protocol Last Admin: 05/18/19 06:32 Dose: Not Given Lisinopril (Prinivil) 10 mg PO DAILY [facility] Last Admin: 05/18/19 09:34 Dose: 10 mg Methadone HCl 160 mg/ (Methadone HCl 30 mg) 190 mg PO DAILY@0600 [facility] Last Admin: 05/18/19 06:32 Dose: 190 mg Nicotine Polacrilex (Nicorette Gum -) 2 mg BUC Q2H PRN PRN Reason: WITHDRAWAL(CONT SUBST) Last Admin: 05/18/19 09:40 Dose: 2 mg Laboratory Results - last 24 hr 05/17/19 05/17/19 05/17/19 11:58 17:28 21:20 WBC RBC Hgb Hct MCV MCH MCHC RDW Plt Count MPV Absolute Neuts (auto) Neutrophils % Lymphocytes % Monocytes % Eosinophils % Basophils % Nucleated RBC % Sodium Potassium Chloride Carbon Dioxide Anion Gap BUN Creatinine Est GFR (CKD-EPI)AfAm Est GFR (CKD-EPI)NonAf POC Glucometer 92 111 103 Random Glucose Calcium Phosphorus Magnesium Total Bilirubin AST ALT Alkaline Phosphatase Total Protein Albumin 05/18/19 05/18/19 05/18/19 05:13 05:13 05:24 WBC 8.1 RBC 4.71 Hgb 13.0 Hct 40.4 MCV 85.8 MCH 27.6 MCHC 32.1 RDW 21.8 H Plt Count 399 MPV 8.6 Absolute Neuts (auto) 3.6 Neutrophils % 43.9 Lymphocytes % 45.9 H Monocytes % 7.5 Eosinophils % 2.2 Basophils % 0.5 Nucleated RBC % 0 Sodium 136 Potassium 5.1 Chloride 101 Carbon Dioxide 31 Anion Gap 4 L BUN 18.9 H Creatinine 0.7 Est GFR (CKD-EPI)AfAm 117.09 Est GFR (CKD-EPI)NonAf 101.02 POC Glucometer 93 Random Glucose 90 Calcium 7.4 L Phosphorus 4.7 Magnesium 1.9 Total Bilirubin 0.2 AST 12 L ALT 26 Alkaline Phosphatase 78 Total Protein 8.3 H Albumin 4.2 Telemetry: occasional PVCs EKG NSR, QTC 394 ASSESSMENT AND PLAN: 49 yof with PMHx of HTN, NIDDM, Anxiety/depression/PTSD/MDD, polysubstance abuse (cocaine, xanax, alcohol, prior h/o IVDU with heroine), Hepatitis C s/p treatment, on methadone maintenance in [facility] rehab since 04/26, admitted with chest pain and abnormal EKG -Chest pain, r/o ACS -Abnormal EKG -Prolonged QTc -HTN -HLD -NIDDM -polysubstance abuse (cocaine, xanax, alcohol, prior h/o IVDU with heroine) -methadone dependence -Hepatitis C s/p treatment -Anxiety/depression/PTSD/MDD, prior psychiatric hospitalizations Plan: ACS ruled out QTc normalized today. Methadone with caution and outpatient taper as tolerated (patient aware) Hold seroquel. Resume metformin. Continue lisinopril Started on plavix/statin by cardiology, continue. Cardiology input noted D/c to [facility] rehab today with outpatient stress test and cardiology follow up once completed detox/rehab. Plan discussed with patient and nursing.
--- NOTE | 2019-05-18 11:17 | EKG ---
Test Reason : Blood Pressure : / mmHG Vent. Rate : 064 BPM Atrial Rate : 064 BPM P-R Int : 136 ms QRS Dur : 092 ms QT Int : 382 ms P-R-T Axes : 071 032 063 degrees QTc Int : 394 ms NORMAL SINUS RHYTHM NONSPECIFIC T WAVE ABNORMALITY ABNORMAL ECG WHEN COMPARED WITH ECG OF 17-MAY-2019 09:50, QT HAS SHORTENED Confirmed by YASMIN VENCES MD ([id number]) on 05/18/2019 11:17:19 AM Referred By: AXEL MORALES DR Confirmed By:YASMIN VENCES MD
--- NOTE | 2019-05-18 11:20 | DS ---
Physical Exam: SUBJECTIVE: Patient seen and examined. C/o about the robaxin being discontinued. Explained that we were trying to minimize QTc prolonging medications. Patient has no new chest pain, no shortness of breath. Was emotional this morning and teary -eyed. Has been having ventricular bigerminys on Tele. Per accounting clerks supervisor she will benefit from interval catheterization. OBJECTIVE: Vital Signs Period Temp Pulse Resp BP Sys/Nolasco Pulse Ox Last 24 Hr 97.6 F-98 F 58-68 13-20 121-151/76-98 99 Vital Signs Temp 98 F 05/18/19 06:00 Pulse 62 05/18/19 10:00 Resp 20 05/18/19 10:00 BP 148/98 05/18/19 10:00 Pulse Ox 99 05/17/19 20:05 Intake & Output 05/17/19 05/17/19 05/18/19 11:59 23:59 11:59 Intake Total 250 410 180 Balance 250 410 180 Intake: Oral 250 410 180 Other: Voiding Method Toilet Toilet # Unmeasured Voids Void 1 1 1 Bowel Movement No No PHYSICAL EXAM GENERAL: The patient is awake, alert, and fully oriented, teary-eyed EYES: PERRL, extraocular movements intact ENT: moist mucous membranes. NECK:supple, No JVD LUNGS: Breath sounds equal, clear to auscultation bilaterally, no wheezes, no crackles HEART: Regular rate and rhythm, S1, S2 without murmur, rub or gallop. ABDOMEN: Soft, nontender, nondistended, normoactive bowel sounds EXTREMITIES: 2+ pulses, warm, well-perfused, no edema. NEUROLOGICAL: Cranial nerves II through XII grossly intact. Normal speech, gait not observed. PSYCH: Labile mood CBC, BMP 05/18/19 05:13 05/18/19 05:13 Laboratory Results - last 24 hr 05/17/19 05/17/19 05/17/19 11:58 17:28 21:20 WBC RBC Hgb Hct MCV MCH MCHC RDW Plt Count MPV Absolute Neuts (auto) Neutrophils % Lymphocytes % Monocytes % Eosinophils % Basophils % Nucleated RBC % Sodium Potassium Chloride Carbon Dioxide Anion Gap BUN Creatinine Est GFR (CKD-EPI)AfAm Est GFR (CKD-EPI)NonAf POC Glucometer 92 111 103 Random Glucose Calcium Phosphorus Magnesium Total Bilirubin AST ALT Alkaline Phosphatase Total Protein Albumin 05/18/19 05/18/19 05/18/19 05:13 05:13 05:24 WBC 8.1 RBC 4.71 Hgb 13.0 Hct 40.4 MCV 85.8 MCH 27.6 MCHC 32.1 RDW 21.8 H Plt Count 399 MPV 8.6 Absolute Neuts (auto) 3.6 Neutrophils % 43.9 Lymphocytes % 45.9 H Monocytes % 7.5 Eosinophils % 2.2 Basophils % 0.5 Nucleated RBC % 0 Sodium 136 Potassium 5.1 Chloride 101 Carbon Dioxide 31 Anion Gap 4 L BUN 18.9 H Creatinine 0.7 Est GFR (CKD-EPI)AfAm 117.09 Est GFR (CKD-EPI)NonAf 101.02 POC Glucometer 93 Random Glucose 90 Calcium 7.4 L Phosphorus 4.7 Magnesium 1.9 Total Bilirubin 0.2 AST 12 L ALT 26 Alkaline Phosphatase 78 Total Protein 8.3 H Albumin 4.2 Ambulatory Orders Metformin HCl [Glucophage] 1,000 mg PO DAILY 01/03/19 Lisinopril [Prinivil] 10 mg PO DAILY 14 Days #14 tablet 02/08/19 Methadone HCl 190 mg PO DAILY 05/15/19 Nicotine Polacrilex [Nicorette] 2 mg BC Q2H PRN 05/15/19 Atorvastatin Ca [Lipitor] 40 mg PO HS #30 tablet 05/18/19 Clopidogrel Bisulfate [Plavix -] 75 mg PO DAILY tablet 05/18/19 Current Medications Atorvastatin Calcium (Lipitor -) 40 mg PO [facility] Last Admin: 05/17/19 21:50 Dose: Not Given Clopidogrel Bisulfate (Plavix -) 75 mg PO DAILY [facility] Last Admin: 05/18/19 09:34 Dose: 75 mg Enoxaparin Sodium (Lovenox -) 40 mg SQ DAILY [facility] Last Admin: 05/18/19 09:33 Dose: 40 mg Insulin Aspart (Novolog Vial Sliding Scale -) 1 vial SQ [facility]; Protocol Last Admin: 05/18/19 06:32 Dose: Not Given Lisinopril (Prinivil) 10 mg PO DAILY [facility] Last Admin: 05/18/19 09:34 Dose: 10 mg Methadone HCl 160 mg/ (Methadone HCl 30 mg) 190 mg PO DAILY@0600 [facility] Last Admin: 05/18/19 06:32 Dose: 190 mg Nicotine Polacrilex (Nicorette Gum -) 2 mg BUC Q2H PRN PRN Reason: WITHDRAWAL(CONT SUBST) Last Admin: 05/18/19 09:40 Dose: 2 mg ECHO-05/16/19- LV size, thickness and fnl are nl. LVEF is nl. LVWM is nl. Trace to mild MR, TR. RVSP is nl. E/A reversal consistent with but not diagnostic of poor LV compliance. HOSPITAL COURSE: Date of Admission:05/15/19 Date of Discharge: 05/18/19 Pt is a 49yo F, with PMH of HTN, current smoker, on methadone program, polysubstance use disorder, Type II DM, Insomnia, Hep C (Treated), Bipolar Disorder, Depression, Post-Traumatic Stress Disorder, brought in from [facility] for chest pain x 1 day. Her CdhW1f-7.9 and she was placed on insulin sliding scale with her metformin held. Her chest pain resolved and she had negative troponins. She was moniotred on tele and showed ventricular bigerminy. Due to her being in rehab, she was recommended for interval cardiac catheterization. Patient was seen by accounting clerks supervisor-Dr Lal and placed on plavix due to ASA allergy. She was started on lipitor, continued on her methadone 190 (would need to taper down with her prolonged QTC), seroquel was held due to prolonged QTC ( but pt would benefit from a substitute medication as she has a labile mood). She continued on nicorette and robaxin was stopped also due to QTc. She is being transferred back to [facility]. She may continue with her other medications. Minutes to complete discharge: 40 Discharge Summary Reason For Visit: CHEST PAIN,PROLONGED QT INTERVAL Current Active Problems Chest pain (Acute) Prolonged Q-T interval on ECG (Acute) Condition: Stable - Instructions Diet, Activity, Other Instructions: You were admitted with Chest pain, your were watched on monitor and heart attack was ruled out. You had 2D echo. You were seen by accounting clerks supervisor and started on blood thinner plavix and cholesterol medication atorvastatin. YOUR EKG SHOWED PROLONGED QTC. Please note that some of your medications have been stopped and you will need interval EKG monitoring with your doctor MEDICATIONS: Start Plavix Atorvastatin. STOP: Seroquel Vistaril Continue: Metformin Lisinopril INSTRUCTIONS: You will need stress test outpatient once finished your detox/rehab. Avoid any medications that can prolong QT interval on your EKG. Please note that methadone can increase QT interval, while on this medication, you will need close EKG monitoring with your doctor Taper methadone as tolerated. Follow up with your psychiatrist at [facility] rehab to discuss alternate medication treatment. YOu are also started on new cholesterol medication, if you notice severe muscle aches or pain, jaundice, belly, pain, please stop the medication and notify your doctor right away. Also you are on blood thinner plavix given your allergy to Aspirin per cardiology recommendation. FOLLOW UP: With accounting clerks supervisor Dr. Lal in 1 week of discharge from detox/rehab With regular doctor PCP In 1 week of discharge from rehab With psychiatrist in 2-3 days at [facility] to discuss alternate treatment medications If you notice bleeding, new chest pain, trouble breathing, heart racing or any new concerns, please call 911 or come to ED Referrals: Jayme Lal MD [Staff Physician] - 1 Week Disposition: TRANSFER ACUTE CARE/OTHER HOSP - Home Medications Comprehensive Discharge Medication List: Ambulatory Orders Metformin HCl [Glucophage] 1,000 mg PO DAILY 01/03/19 Lisinopril [Prinivil] 10 mg PO DAILY 14 Days #14 tablet 02/08/19 Methadone HCl 190 mg PO DAILY 05/15/19 Nicotine Polacrilex [Nicorette] 2 mg BC Q2H PRN 05/15/19 Atorvastatin Ca [Lipitor] 40 mg PO HS #30 tablet 05/18/19 Clopidogrel Bisulfate [Plavix -] 75 mg PO DAILY tablet 05/18/19 This patient is new to me today: No Emergency Visit: Yes ED Registration Date: 05/15/19 Care time: The patient presented to the Emergency Department on the above date and was hospitalized for further evaluation of their emergent condition. Critical Care patient: No - Discharge Referral Referred to [facility] Med [facility] No Physician Referral: Delfino Amaya DO (Neph)
--- NOTE | 2019-05-18 11:36 | PN ---
Progress Note, Physician History of Present Illness: 49 yof with PMHx of HTN, NIDDM, Anxiety/depression/PTSD/MDD, prior psychiatric hospitalizations, polysubstance abuse (cocaine, xanax, alcohol, prior h/o IVDU with heroine), Hepatitis C s/p treatment, on methadone maintenance in [facility] rehab since 04/26, admitted with chest pain. Patient was in her [facility] yesterday evening, while watching TV when had suddent onset of substernal chest pressure radiating to left arm, off an on, went to sleep woke this AM, had recurrent symptoms, found with abnormal EKG and prolonged QTc at [facility] sent to ED. Reports her pain resolved within an hour in the ED, no recurrent since, no fevers, chills, palpitations, dyspnea, diaphoresis. States no cocaine since 04/26/2019. Similar prior chest pain 2-3 times last year. Denies prior cardiac w/u, echo/ stress testing. - Current Medication List Current Medications: Active Medications Atorvastatin Calcium (Lipitor -) 40 mg PO [facility] Last Admin: 05/17/19 21:50 Dose: Not Given Clopidogrel Bisulfate (Plavix -) 75 mg PO DAILY [facility] Last Admin: 05/18/19 09:34 Dose: 75 mg Enoxaparin Sodium (Lovenox -) 40 mg SQ DAILY [facility] Last Admin: 05/18/19 09:33 Dose: 40 mg Insulin Aspart (Novolog Vial Sliding Scale -) 1 vial SQ [facility]; Protocol Last Admin: 05/18/19 06:32 Dose: Not Given Lisinopril (Prinivil) 10 mg PO DAILY [facility] Last Admin: 05/18/19 09:34 Dose: 10 mg Methadone HCl 160 mg/ (Methadone HCl 30 mg) 190 mg PO DAILY@0600 [facility] Last Admin: 05/18/19 06:32 Dose: 190 mg Nicotine Polacrilex (Nicorette Gum -) 2 mg BUC Q2H PRN PRN Reason: WITHDRAWAL(CONT SUBST) Last Admin: 05/18/19 09:40 Dose: 2 mg - Objective Vital Signs: Vital Signs Temperature 98 F 05/18/19 06:00 Pulse Rate 62 05/18/19 10:00 Respiratory Rate 20 05/18/19 10:00 Blood Pressure 148/98 05/18/19 10:00 O2 Sat by Pulse Oximetry (%) 99 05/17/19 20:05 Eyes: Yes: WNL, Conjunctiva Clear, EOM Intact HENT: Yes: WNL, Atraumatic, Normocephalic Neck: Yes: WNL, Supple, Trachea Midline Cardiovascular: Yes: WNL, Regular Rate and Rhythm Respiratory: Yes: WNL, Regular, CTA Bilaterally Gastrointestinal: Yes: WNL, Normal Bowel Sounds Genitourinary: Yes: WNL Musculoskeletal: Yes: WNL Extremities: Yes: WNL Edema: No Integumentary: Yes: WNL Neurological: Yes: WNL, Alert, Oriented ...Motor Strength: WNL Psychiatric: Yes: WNL Labs: CBC, BMP 05/18/19 05:13 05/18/19 05:13 Problem List - Problems (1) Chest pain Code(s): R07.9 - CHEST PAIN, UNSPECIFIED Qualifiers: Chest pain type: unspecified Qualified Code(s): R07.9 - Chest pain, unspecified (2) Prolonged Q-T interval on ECG Code(s): R94.31 - ABNORMAL ELECTROCARDIOGRAM [ECG] [EKG] (3) Alcohol abuse with physiological dependence Code(s): F10.20 - ALCOHOL DEPENDENCE, UNCOMPLICATED (4) Muscle spasm Code(s): M62.838 - OTHER MUSCLE SPASM (5) Muscle spasm of back Code(s): M62.830 - MUSCLE SPASM OF BACK (6) Sedative hypnotic or anxiolytic dependence Code(s): F13.20 - SEDATIVE, HYPNOTIC OR ANXIOLYTIC DEPENDENCE, UNCOMPLICATED (7) Substance-induced sleep disorder Code(s): F19.982 - OTH PSYCHOACTIVE SUBSTANCE USE, UNSP W SLEEP DISORDER (8) Alcohol dependence Code(s): F10.20 - ALCOHOL DEPENDENCE, UNCOMPLICATED (9) Anemia Code(s): D64.9 - ANEMIA, UNSPECIFIED (10) Benzodiazepine dependence Code(s): F13.20 - SEDATIVE, HYPNOTIC OR ANXIOLYTIC DEPENDENCE, UNCOMPLICATED (11) Bipolar disorder Code(s): F31.9 - BIPOLAR DISORDER, UNSPECIFIED (12) Cocaine dependence Code(s): F14.20 - COCAINE DEPENDENCE, UNCOMPLICATED Qualifiers: Substance use status: uncomplicated Qualified Code(s): F14.20 - Cocaine dependence, uncomplicated (13) Cocaine dependence Code(s): F14.20 - COCAINE DEPENDENCE, UNCOMPLICATED Qualifiers: Substance use status: uncomplicated Qualified Code(s): F14.20 - Cocaine dependence, uncomplicated (14) Diabetes Code(s): E11.9 - TYPE 2 DIABETES MELLITUS WITHOUT COMPLICATIONS Qualifiers: Diabetes mellitus type: type 2 Diabetes mellitus complication status: without complication (15) HTN (hypertension) Code(s): I10 - ESSENTIAL (PRIMARY) HYPERTENSION Qualifiers: Hypertension type: essential hypertension Qualified Code(s): I10 - Essential (primary) hypertension (16) Insomnia Code(s): G47.00 - INSOMNIA, UNSPECIFIED Qualifiers: Insomnia type: unspecified Qualified Code(s): G47.00 - Insomnia, unspecified (17) MDD (major depressive disorder), recurrent episode, moderate Code(s): F33.1 - MAJOR DEPRESSIVE DISORDER, RECURRENT, MODERATE (18) Major depressive disorder Code(s): F32.9 - MAJOR DEPRESSIVE DISORDER, SINGLE EPISODE, UNSPECIFIED (19) Methadone maintenance therapy patient Code(s): F11.20 - OPIOID DEPENDENCE, UNCOMPLICATED (20) Nicotine dependence Code(s): F17.200 - NICOTINE DEPENDENCE, UNSPECIFIED, UNCOMPLICATED Qualifiers: Nicotine product type: cigarettes Substance use status: uncomplicated Qualified Code(s): F17.210 - Nicotine dependence, cigarettes, uncomplicated (21) Non-compliance Code(s): Z91.19 - PATIENT'S NONCOMPLIANCE W OTH MEDICAL TREATMENT AND REGIMEN (22) Opioid dependence on agonist therapy Code(s): F11.20 - OPIOID DEPENDENCE, UNCOMPLICATED (23) PTSD (post-traumatic stress disorder) Code(s): F43.10 - POST-TRAUMATIC STRESS DISORDER, UNSPECIFIED (24) Substance induced mood disorder Code(s): F19.94 - OTH PSYCHOACTIVE SUBSTANCE USE, UNSP W MOOD DISORDER (25) Type 2 diabetes mellitus Code(s): E11.9 - TYPE 2 DIABETES MELLITUS WITHOUT COMPLICATIONS Qualifiers: Diabetes mellitus petroleum terminal plant operator insulin use: without half-way use Diabetes mellitus complication status: with other specified complication Qualified Code (s): E11.69 - Type 2 diabetes mellitus with other specified complication (26) Hepatitis C Code(s): B19.20 - UNSPECIFIED VIRAL HEPATITIS C WITHOUT HEPATIC COMA Assessment/Plan Pt is a 49yo F, with PMH of HTN, current smoker, on methadone program, polysubstance use disorder, Type II DM, Insomnia, Hep C (Treated), Bipolar Disorder, Depression, Post-Traumatic Stress Disorder, brought in from [facility] for chest pain x 1 day. Chest pain R/O ACS EKG changes Repeat EKG ASA trend trops ECHO Not likely candidate for stress test at this time as she is in detox/rehab. MIBI st when stable detox demarco Lipid profile hgba1c HTN Lisinopril 10mg daily DM ISS BGM Q6H Current smoker Nicotine gum Methadone program Cont methadone 190mg daily Polysubstance use Utox pending Avoid BB Pt hardly uses alcohol- CIWA 0 Bipolar Disorder/Depression/Post-Traumatic Stress Disorder Holding seroquel
== END 2019-05-18 13:54 | disposition short-term general hospital (02) ==
LOC: JER 11:51 → JERBED 14:52 → J2W 21:12
PROVIDERS: ADMIT Hospitalist; ATTEND Hospitalist
DX: R07.9 Chest pain, unspecified (principal); I45.81 Long QT syndrome; I10 Essential (primary) hypertension; E11.9 Type 2 diabetes mellitus without complications; Z79.84 Long term (current) use of oral hypoglycemic drugs; E78.00 Pure hypercholesterolemia, unspecified; E78.5 Hyperlipidemia, unspecified; G47.00 Insomnia, unspecified; B18.2 Chronic viral hepatitis C; F10.20 Alcohol dependence, uncomplicated; F14.20 Cocaine dependence, uncomplicated; F13.20 Sedative, hypnotic or anxiolytic dependence, uncomplicated; F17.210 Nicotine dependence, cigarettes, uncomplicated; Z79.82 Long term (current) use of aspirin; F31.9 Bipolar disorder, unspecified; F43.10 Post-traumatic stress disorder, unspecified
CPT/HCPCS: 36415; 71046-TC-FY; 80053; 80061; 80307; 82962; 83036; 83721; 83735; 84100; 84484; 84703; 85025; 93005; 93010; 93306-TC; 99283-25; G0378

== ENCOUNTER 2019-05-18 11:55 | Inpatient (IN) | payer OTHER ==
[2019-05-18 12:19] VITALS: BMI 26.2
[2019-05-18] MEDS ORDERED: ACETAMINOPHEN 325 MG TABLET (FP) PO PRN (12:56)
[2019-05-18] MEDS ORDERED: MAG HYDROX/AL HYDROX/SIMETH 30 ML UNIT-DOSE CUP PO PRN (12:56)
[2019-05-18] MEDS ORDERED: guaiFENesin 200 MG/10 ML 10 ML UNIT-DOSE CUPS PO PRN (12:56)
[2019-05-18] MEDS ORDERED: P-EPHED 60MG/TRIPROLIDI 2.5MG TABLET PO PRN (12:56)
[2019-05-18] MEDS ORDERED: MENTHOL/PHENOL 1 EACH UD MM PRN (12:56)
[2019-05-18] MEDS ORDERED: MAGNESIUM CITRATE 300 ML BOTTLE PO PRN (12:56)
[2019-05-18] MEDS ORDERED: MAGNESIUM HYDROX 2400MG/30ML ORAL SUSPENSION 30 ML CUP PO PRN (12:56)
--- NOTE | 2019-05-18 13:05 | HP ---
JULIAN GARCIA Rehab Assess/Revision - Admission History Admitted to Rehab from: Medical/Surgical Date of Admission to Rehab: 05/18/19 - Vital signs Vital Signs: Vital Signs Period Temp Pulse Resp BP Sys/Nolasco Pulse Ox Last 24 Hr 97.4 F 93 18 188/106 - Findings Detox History & Physical reviewed: Yes Concur with findings: Yes Comments/Additional Findings: pt transferred from [facility]/surg floor, d/c paperwork reviewed and orders entered. Inpatient Rehab Admission - Rehab Decision to Admit Inpatient rehab admission?: Yes - Initial Determination Are CD services needed?: Yes Free of communicable disease: Yes Not in need of hospitalization: Yes - Rehab Admission Criteria Previous failed treatment: Yes Poor recovery environment: Yes Comorbidities: Yes Lacks judgement: Yes Patient is meeting Inpatient Rehab admission criteria:: Yes
[2019-05-18] MEDS ORDERED: PT OWN MED DRAWER 7, Y5N ONE (15:38)
[2019-05-18] MEDS: NICOTINE POLACRILEX 2 MG GUM BUC PRN ×2 (15:39→21:41)
[2019-05-18] MEDS: hydrOXYzine PAMOATE 25 MG CAPSULE (FP) PO PRN ×2 (15:39→21:39)
[2019-05-18] MEDS ORDERED: INSULIN (NOVOLOG) ASPART 100 UNITS/ML 10ML VIAL ONE (16:21)
[2019-05-18] MEDS: INSULIN SLIDING SCALE (NOVOLOG) 1 VIAL SQ SCH (16:30)
[2019-05-18] MEDS: THIAMINE HCL 100 MG TABLET (FP) PO SCH (21:38)
[2019-05-18] MEDS: ATORVASTATIN CA 40 MG TABLET (FP) PO SCH (21:39)
--- NOTE | 2019-05-18 23:20 | PN ---
[facility] Progress Note Note: Patient was discharged from ER and was advised to stop Seroquel and Vistaril. Vital Signs Temperature 97.7 F 05/18/19 13:14 Pulse Rate 93 H 05/18/19 13:14 Respiratory Rate 17 05/18/19 13:14 Blood Pressure 126/86 05/18/19 13:14 O2 Sat by Pulse Oximetry (%) Laboratory Last Values POC Glucometer 93 UNITS (80-120) 05/18/19 16:29 Action: Vistaril discontinued as order Psych. consult for alternative to Seroquel that will not prolong QTC
[2019-05-19] MEDS ORDERED: METHADONE HCL 10 MG TABLET ONE (06:20)
[2019-05-19] MEDS ORDERED: METHADONE HCL 40 MG DISPERSABLE TABLET ONE (06:21)
[2019-05-19] MEDS: METHADONE 160 MG, METHADONE 30 MG PO SCH (06:22)
[2019-05-19] MEDS: NICOTINE POLACRILEX 2 MG GUM BUC PRN ×2 (06:25→10:19)
[2019-05-19] MEDS: INSULIN SLIDING SCALE (NOVOLOG) 1 VIAL SQ SCH ×2 (07:59→17:11)
[2019-05-19] MEDS: metFORMIN HCL 500 MG TABLET (FP) PO SCH (08:18)
[2019-05-19] MEDS ORDERED: METHADONE HCL 5 MG TABLET PO SCH (10:00)
[2019-05-19] MEDS: PRENATAL VITAMINS W/ FOLIC ACID TABLET (FP) PO SCH (10:18)
[2019-05-19] MEDS: CLOPIDOGREL BISULFATE 75 MG TABLET (FP) PO SCH (10:18)
[2019-05-19] MEDS: LISINOPRIL 10 MG TABLET (FP) PO SCH (10:18)
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
[2019-05-19] MEDS: ATORVASTATIN CA 40 MG TABLET (FP) PO SCH (21:19)
[2019-05-19] MEDS: THIAMINE HCL 100 MG TABLET (FP) PO SCH (21:19)
[2019-05-19] MEDS: MELATONIN 5 MG TABLETS PO PRN (21:20)
[2019-05-19] MEDS ORDERED: MIRTAZAPINE 15 MG TABLET (FP) PO SCH (22:00)
[2019-05-20] MEDS ORDERED: METHADONE HCL 10 MG TABLET ONE (06:27)
[2019-05-20] MEDS ORDERED: METHADONE HCL 40 MG DISPERSABLE TABLET ONE (06:27)
[2019-05-20] MEDS: METHADONE 160 MG, METHADONE 30 MG PO SCH (06:31)
[2019-05-20] MEDS: NICOTINE POLACRILEX 2 MG GUM BUC PRN (06:33)
[2019-05-20] MEDS: INSULIN SLIDING SCALE (NOVOLOG) 1 VIAL SQ SCH ×2 (06:51→17:01)
[2019-05-20] MEDS: metFORMIN HCL 500 MG TABLET (FP) PO SCH (08:13)
[2019-05-20] MEDS: PRENATAL VITAMINS W/ FOLIC ACID TABLET (FP) PO SCH (09:57)
[2019-05-20] MEDS: LISINOPRIL 10 MG TABLET (FP) PO SCH (09:58)
[2019-05-20] MEDS: CLOPIDOGREL BISULFATE 75 MG TABLET (FP) PO SCH (09:58)
--- NOTE | 2019-05-20 16:10 | PN ---
Psychiatric Progress Note Vital Signs: Vital Signs Period Temp Pulse Resp BP Sys/Nolasco Pulse Ox Last 24 Hr 98.1 F 80-84 18-18 105-123/71-75 Date of Session: 05/20/19 Chief Complaint:: " increase in mirtazapine" HPI: Patient admitted to for alcohol, benzodiazepine, and cocaine dependence co-morbid PTSD. ROS: Patient is coherent, alert and oriented X3. Current Medications: Active Medications Generic Name Dose Route Start Last Admin Trade Name Freq PRN Reason Stop Dose Admin Acetaminophen 650 mg 05/18/19 12:56 Tylenol - PO Q4H PRN FEVER Al Hydroxide/Mg Hydroxide 30 ml 05/18/19 12:56 Mylanta Oral Suspension - PO Q6H PRN DYSPEPSIA Atorvastatin Calcium 40 mg 05/18/19 22:00 05/19/19 21:19 Lipitor - PO 40 mg HS PATRICE Administration Clopidogrel Bisulfate 75 mg 05/19/19 10:00 05/20/19 09:58 Plavix - PO 75 mg DAILY PATRICE Administration Eucalyptus/Menthol/Phenol/Sorbitol 1 each 05/18/19 12:56 Cepastat Lozenge - MM Q4H PRN SORE THROAT Guaifenesin 10 ml 05/18/19 12:56 Robitussin - PO Q6H PRN COUGH Insulin Aspart 1 vial 05/18/19 16:30 05/20/19 06:51 Novolog Vial Sliding Scale - SQ Not Given BIDAC COUNTS INCLUDE 234 BEDS AT [facility] Protocol Lisinopril 10 mg 05/19/19 10:00 05/20/19 09:58 Prinivil PO 10 mg DAILY PATRICE Administration Magnesium Citrate 300 ml 05/18/19 12:56 Citroma - PO Q48H PRN CONSTIPATION Magnesium Hydroxide 30 ml 05/18/19 12:56 Milk Of Magnesia - PO DAILY PRN CONSTIPATION Melatonin 5 mg 05/18/19 22:00 05/19/19 21:20 Melatonin PO 5 mg HS PRN Administration INSOMNIA Metformin HCl 1,000 mg 05/19/19 07:00 05/20/19 08:13 Glucophage - PO 1,000 mg DAILY@0700 PATRICE Administration Methadone HCl 160 mg/ 190 mg 05/19/19 06:00 05/20/19 06:31 Methadone HCl 30 mg PO 190 mg DAILY@0600 PATRICE Administration Mirtazapine 7.5 mg 05/19/19 22:00 05/19/19 21:22 Remeron - PO 7.5 mg HS PATRICE Administration Nicotine Polacrilex 2 mg 05/18/19 12:53 05/20/19 06:33 Nicorette Gum - BUC 2 mg Q2H PRN Administration WITHDRAWAL(CONT SUBST) Multivit/Folic Acid/Iron 1 tab 05/19/19 10:00 05/20/19 09:57 Vitamins (Sjr) - PO 1 tab DAILY PATRICE Administration Pseudoephedrine/Triprolidine 1 combo 05/18/19 12:56 Actifed - PO TID PRN NASAL CONGESTION Thiamine HCl 100 mg 05/18/19 22:00 05/19/19 21:19 Vitamin B1 - PO 100 mg HS PATRICE Administration Medication(s) Change(s): Yes. Current Side Effect: No Lab tests ordered: No Lab tests reviewed: Yes Provider note:: Patient ordered mirtazapine 7.[address] Pan. Dr. Pan note read and appreciated. Ms. Fraser was initially prescribed seroquel 200mg HS while in rehab last week but due to a prolong qtc and complaints of chest pain seroquel was discontinued. Patient was transferred to [facility] on 05/15/19 and readmitted to rehab on 05/18/19. Patient able to tolerate mirtazapine 7.5 mg HS. Mirtazapine to be increased to 15mg HS. Benefits and side effects discussed. Verbal consent given. Total face to face time:: 25 Mental Status Exam - Mental Status Exam Alert and Oriented to: Time, Place, Person Cognitive Function: Good Patient Appearance: Well Groomed Mood: Euthymic Affect: Mood Congruent Patient Behavior: Fatigued, Cooperative Speech Pattern: Appropriate Voice Loudness: Normal Thought Process: Goal Oriented Thought Disorder: Not Present Hallucinations: Denies Suicidal Ideation: Denies Homicidal Ideation: Denies Insight/Judgement: Poor Sleep: Fair Appetite: Fair Muscle strength/Tone: Normal Gait/Station: Normal Psychiatric Treatment Plan - Problem List (1) Alcohol dependence Current Visit: Yes (2) Cocaine dependence Current Visit: Yes Qualifiers: Substance use status: uncomplicated Qualified Code(s): F14.20 - Cocaine dependence, uncomplicated (3) Opioid dependence on agonist therapy Current Visit: Yes Comment: on MMTP on 180 mg, last medicated today, dose pending verification (4) PTSD (post-traumatic stress disorder) Current Visit: Yes Comment: As per history. (5) Sedative hypnotic or anxiolytic dependence Current Visit: Yes (6) Nicotine dependence Current Visit: Yes Qualifiers: Nicotine product type: cigarettes Substance use status: uncomplicated Qualified Code(s): F17.210 - Nicotine dependence, cigarettes, uncomplicated
[2019-05-20] MEDS: MELATONIN 5 MG TABLETS PO PRN (21:32)
[2019-05-20] MEDS: ATORVASTATIN CA 40 MG TABLET (FP) PO SCH (21:32)
[2019-05-20] MEDS: THIAMINE HCL 100 MG TABLET (FP) PO SCH (21:32)
[2019-05-20] MEDS: MIRTAZAPINE 15 MG TABLET (FP) PO SCH (21:33)
[2019-05-21] MEDS ORDERED: METHADONE HCL 10 MG TABLET ONE (06:13)
[2019-05-21] MEDS ORDERED: METHADONE HCL 40 MG DISPERSABLE TABLET ONE (06:13)
[2019-05-21] MEDS: METHADONE 160 MG, METHADONE 30 MG PO SCH (06:17)
[2019-05-21] MEDS: NICOTINE POLACRILEX 2 MG GUM BUC PRN ×2 (06:17→09:44)
[2019-05-21] MEDS: INSULIN SLIDING SCALE (NOVOLOG) 1 VIAL SQ SCH ×2 (07:43→16:55)
[2019-05-21] MEDS: metFORMIN HCL 500 MG TABLET (FP) PO SCH (08:24)
[2019-05-21] MEDS: CLOPIDOGREL BISULFATE 75 MG TABLET (FP) PO SCH (09:43)
[2019-05-21] MEDS: LISINOPRIL 10 MG TABLET (FP) PO SCH (09:43)
[2019-05-21] MEDS: PRENATAL VITAMINS W/ FOLIC ACID TABLET (FP) PO SCH (09:43)
[2019-05-21] MEDS: ATORVASTATIN CA 40 MG TABLET (FP) PO SCH (21:28)
[2019-05-21] MEDS: MIRTAZAPINE 15 MG TABLET (FP) PO SCH (21:28)
[2019-05-21] MEDS: MELATONIN 5 MG TABLETS PO PRN (21:28)
[2019-05-21] MEDS: THIAMINE HCL 100 MG TABLET (FP) PO SCH (21:28)
[2019-05-22] MEDS ORDERED: METHADONE HCL 40 MG DISPERSABLE TABLET ONE (05:47)
[2019-05-22] MEDS ORDERED: METHADONE HCL 10 MG TABLET ONE (05:47)
[2019-05-22] MEDS: METHADONE 160 MG, METHADONE 30 MG PO SCH (06:12)
[2019-05-22] MEDS: NICOTINE POLACRILEX 2 MG GUM BUC PRN ×3 (06:13→21:36)
[2019-05-22] MEDS: INSULIN SLIDING SCALE (NOVOLOG) 1 VIAL SQ SCH (08:18)
[2019-05-22] MEDS: metFORMIN HCL 500 MG TABLET (FP) PO SCH (08:18)
[2019-05-22] MEDS: PRENATAL VITAMINS W/ FOLIC ACID TABLET (FP) PO SCH (09:25)
[2019-05-22] MEDS: CLOPIDOGREL BISULFATE 75 MG TABLET (FP) PO SCH (09:25)
[2019-05-22] MEDS: LISINOPRIL 10 MG TABLET (FP) PO SCH (09:25)
[2019-05-22] MEDS: MIRTAZAPINE 15 MG TABLET (FP) PO SCH (21:29)
[2019-05-22] MEDS: THIAMINE HCL 100 MG TABLET (FP) PO SCH (21:29)
[2019-05-22] MEDS: MELATONIN 5 MG TABLETS PO PRN (21:29)
[2019-05-22] MEDS: ATORVASTATIN CA 40 MG TABLET (FP) PO SCH (21:29)
[2019-05-23] MEDS ORDERED: METHADONE HCL 40 MG DISPERSABLE TABLET ONE (04:58)
[2019-05-23] MEDS ORDERED: METHADONE HCL 10 MG TABLET ONE (04:58)
[2019-05-23] MEDS: METHADONE 160 MG, METHADONE 30 MG PO SCH (06:39)
[2019-05-23] MEDS: NICOTINE POLACRILEX 2 MG GUM BUC PRN ×4 (06:40→21:34)
[2019-05-23] MEDS: metFORMIN HCL 500 MG TABLET (FP) PO SCH (07:36)
[2019-05-23] MEDS: CLOPIDOGREL BISULFATE 75 MG TABLET (FP) PO SCH (09:37)
[2019-05-23] MEDS: LISINOPRIL 10 MG TABLET (FP) PO SCH (09:37)
[2019-05-23] MEDS: PRENATAL VITAMINS W/ FOLIC ACID TABLET (FP) PO SCH (09:38)
[2019-05-23] MEDS: METHOCARBAMOL 500 MG TABLET PO SCH ×2 (11:35→21:32)
[2019-05-23] MEDS: THIAMINE HCL 100 MG TABLET (FP) PO SCH (21:31)
[2019-05-23] MEDS: ATORVASTATIN CA 40 MG TABLET (FP) PO SCH (21:31)
[2019-05-23] MEDS: MIRTAZAPINE 15 MG TABLET (FP) PO SCH (21:32)
[2019-05-23] MEDS: MELATONIN 5 MG TABLETS PO PRN (21:32)
[2019-05-24] MEDS ORDERED: METHADONE HCL 10 MG TABLET ONE (05:57)
[2019-05-24] MEDS ORDERED: METHADONE HCL 40 MG DISPERSABLE TABLET ONE (05:57)
[2019-05-24] MEDS: METHADONE 160 MG, METHADONE 30 MG PO SCH (06:25)
[2019-05-24] MEDS: NICOTINE POLACRILEX 2 MG GUM BUC PRN ×4 (06:26→21:26)
[2019-05-24] MEDS: metFORMIN HCL 500 MG TABLET (FP) PO SCH (07:33)
[2019-05-24] MEDS: CLOPIDOGREL BISULFATE 75 MG TABLET (FP) PO SCH (09:37)
[2019-05-24] MEDS: METHOCARBAMOL 500 MG TABLET PO SCH ×2 (09:38→21:26)
[2019-05-24] MEDS: LISINOPRIL 10 MG TABLET (FP) PO SCH (09:38)
[2019-05-24] MEDS: PRENATAL VITAMINS W/ FOLIC ACID TABLET (FP) PO SCH (09:38)
[2019-05-24] MEDS: THIAMINE HCL 100 MG TABLET (FP) PO SCH (21:26)
[2019-05-24] MEDS: MIRTAZAPINE 15 MG TABLET (FP) PO SCH (21:26)
[2019-05-24] MEDS: MELATONIN 5 MG TABLETS PO PRN (21:26)
[2019-05-24] MEDS: ATORVASTATIN CA 40 MG TABLET (FP) PO SCH (21:26)
[2019-05-25] MEDS ORDERED: TRIMETHOBENZAMIDE HCL 200MG/2ML INJ IM ONE (04:42)
[2019-05-25] MEDS ORDERED: METHADONE HCL 10 MG TABLET ONE (06:01)
[2019-05-25] MEDS ORDERED: METHADONE HCL 40 MG DISPERSABLE TABLET ONE (06:02)
[2019-05-25] MEDS: METHADONE 160 MG, METHADONE 30 MG PO SCH (06:36)
[2019-05-25] MEDS: metFORMIN HCL 500 MG TABLET (FP) PO SCH (08:24)
[2019-05-25] MEDS: LISINOPRIL 10 MG TABLET (FP) PO SCH (10:39)
[2019-05-25] MEDS: PRENATAL VITAMINS W/ FOLIC ACID TABLET (FP) PO SCH (10:39)
[2019-05-25] MEDS: METHOCARBAMOL 500 MG TABLET PO SCH ×2 (10:39→21:43)
[2019-05-25] MEDS: CLOPIDOGREL BISULFATE 75 MG TABLET (FP) PO SCH (10:40)
[2019-05-25] MEDS: NICOTINE POLACRILEX 2 MG GUM BUC PRN ×2 (10:40→21:44)
[2019-05-25] MEDS: MELATONIN 5 MG TABLETS PO PRN (21:43)
[2019-05-25] MEDS: MIRTAZAPINE 15 MG TABLET (FP) PO SCH (21:44)
[2019-05-25] MEDS: ATORVASTATIN CA 40 MG TABLET (FP) PO SCH (21:44)
[2019-05-25] MEDS: THIAMINE HCL 100 MG TABLET (FP) PO SCH (21:44)
[2019-05-26] MEDS: METHADONE 160 MG, METHADONE 30 MG PO SCH (06:15)
[2019-05-26] MEDS ORDERED: METHADONE HCL 10 MG TABLET ONE (06:15)
[2019-05-26] MEDS ORDERED: METHADONE HCL 40 MG DISPERSABLE TABLET ONE (06:15)
[2019-05-26] MEDS: metFORMIN HCL 500 MG TABLET (FP) PO SCH (07:21)
[2019-05-26] MEDS: CLOPIDOGREL BISULFATE 75 MG TABLET (FP) PO SCH (09:53)
[2019-05-26] MEDS: LISINOPRIL 10 MG TABLET (FP) PO SCH (09:53)
[2019-05-26] MEDS: PRENATAL VITAMINS W/ FOLIC ACID TABLET (FP) PO SCH (09:53)
[2019-05-26] MEDS: NICOTINE POLACRILEX 2 MG GUM BUC PRN (09:54)
[2019-05-26] MEDS: METHOCARBAMOL 500 MG TABLET PO SCH ×2 (09:54→21:24)
[2019-05-26] MEDS: THIAMINE HCL 100 MG TABLET (FP) PO SCH (21:24)
[2019-05-26] MEDS: ATORVASTATIN CA 40 MG TABLET (FP) PO SCH (21:24)
[2019-05-26] MEDS: MIRTAZAPINE 15 MG TABLET (FP) PO SCH (21:24)
[2019-05-26] MEDS: MELATONIN 5 MG TABLETS PO PRN (21:25)
[2019-05-27] MEDS ORDERED: METHADONE HCL 10 MG TABLET ONE (06:15)
[2019-05-27] MEDS ORDERED: METHADONE HCL 40 MG DISPERSABLE TABLET ONE (06:15)
[2019-05-27] MEDS: METHADONE 160 MG, METHADONE 30 MG PO SCH (06:19)
[2019-05-27] MEDS: metFORMIN HCL 500 MG TABLET (FP) PO SCH (06:20)
[2019-05-27] MEDS: NICOTINE POLACRILEX 2 MG GUM BUC PRN ×3 (06:21→21:47)
[2019-05-27] MEDS: METHOCARBAMOL 500 MG TABLET PO SCH ×2 (10:31→21:46)
[2019-05-27] MEDS: LISINOPRIL 10 MG TABLET (FP) PO SCH (10:31)
[2019-05-27] MEDS: CLOPIDOGREL BISULFATE 75 MG TABLET (FP) PO SCH (10:31)
[2019-05-27] MEDS: PRENATAL VITAMINS W/ FOLIC ACID TABLET (FP) PO SCH (10:31)
--- NOTE | 2019-05-27 15:56 | PN ---
S Progress Note Note: Patient is scheduled for discharge tomorrow. Script for 30 days supply of Remeron 15 mg/hs will be electronically transmitted to [facility]
[2019-05-27] MEDS: THIAMINE HCL 100 MG TABLET (FP) PO SCH (21:46)
[2019-05-27] MEDS: ATORVASTATIN CA 40 MG TABLET (FP) PO SCH (21:46)
[2019-05-27] MEDS: MIRTAZAPINE 15 MG TABLET (FP) PO SCH (21:46)
[2019-05-27] MEDS: MELATONIN 5 MG TABLETS PO PRN (21:47)
[2019-05-28] MEDS ORDERED: METHADONE HCL 10 MG TABLET ONE (06:16)
[2019-05-28] MEDS ORDERED: METHADONE HCL 40 MG DISPERSABLE TABLET ONE (06:17)
[2019-05-28] MEDS: METHADONE 160 MG, METHADONE 30 MG PO SCH (06:19)
[2019-05-28] MEDS: metFORMIN HCL 500 MG TABLET (FP) PO SCH (06:20)
[2019-05-28] MEDS: NICOTINE POLACRILEX 2 MG GUM BUC PRN ×2 (06:20→09:33)
[2019-05-28 07:29] VITALS: TEMP 98.7
[2019-05-28] MEDS: CLOPIDOGREL BISULFATE 75 MG TABLET (FP) PO SCH (09:34)
[2019-05-28] MEDS: PRENATAL VITAMINS W/ FOLIC ACID TABLET (FP) PO SCH (09:34)
[2019-05-28] MEDS: METHOCARBAMOL 500 MG TABLET PO SCH (09:34)
[2019-05-28] MEDS: LISINOPRIL 10 MG TABLET (FP) PO SCH (09:34)
--- NOTE | 2019-05-28 10:37 | PN ---
[facility] Progress Note (SOAP) Subjective: PT COMPLETED REHAB AND DISCHARGED TODAY. PT ATTENDED/PARTICIPATED IN GROUP ACTIVITIES ON UNIT. PT MET WITH HER COUNSELOR AND WAS REFERRED TO [facility] FOR [facility] ON [address] [facility] . PT REPORTS SHE HAS A PCP, DR. RAO AT [facility] AND HAS NEXT APPOINTMENT FOR FOLLOW UP AT "END OF THE MONTH"(REPORTS SHE HAS EXACT DATE IN HER PHONE). PT REPORTS SHE HAS OWN MEDICATIONS AT HOME. ALERT O X 3. DENIES S/H/I. Objective: 05/28/19 11:15 Vital Signs 05/28/19 05/28/19 03:30 07:28 Temperature 98.7 F Pulse Rate 89 Respiratory 16 18 Rate Blood Pressure 125/89 Laboratory Tests 05/18/19 05/19/19 05/19/19 16:29 06:19 17:01 POC Glucometer 93 117 90 05/20/19 05/21/19 05/22/19 06:30 06:15 06:10 POC Glucometer 88 78 73 05/22/19 05/23/19 05/23/19 17:01 06:38 17:00 POC Glucometer 111 84 101 05/24/19 05/25/19 05/26/19 06:23 06:35 06:19 POC Glucometer 76 93 86 05/27/19 05/28/19 06:18 06:18 POC Glucometer 91 105 Home Medications Medication Instructions Recorded Metformin HCl [Glucophage] 1,000 mg PO DAILY 01/03/19 Lisinopril [Prinivil] 10 mg PO DAILY 14 Days #14 tablet 02/08/19 Methadone HCl 190 mg PO DAILY 05/15/19 Nicotine Polacrilex [Nicorette] 2 mg BC Q2H PRN 05/15/19 Atorvastatin Ca [Lipitor] 40 mg PO HS #30 tablet 05/18/19 Clopidogrel Bisulfate [Plavix -] 75 mg PO DAILY tablet 05/18/19 Mirtazapine [Remeron -] 15 mg PO HS #30 tablet 05/27/19 Assessment: 05/28/19 11:15 NAD MEDICALLY STABLE (1) Methadone maintenance therapy patient Status: Chronic (2) HTN (hypertension) Qualifiers: Hypertension type: essential hypertension Qualified Code(s): I10 - Essential (primary) hypertension Status: Chronic (3) Type 2 diabetes mellitus Qualifiers: Diabetes mellitus terminal make up operator insulin use: without terminal make up operator use Diabetes mellitus complication status: with other specified complication Qualified Code (s): E11.69 - Type 2 diabetes mellitus with other specified complication Status: Chronic (4) Alcohol dependence Qualifiers: Substance use status: uncomplicated Qualified Code(s): F10.20 - Alcohol dependence, uncomplicated Status: Chronic (5) Cocaine dependence Qualifiers: Substance use status: uncomplicated Qualified Code(s): F14.20 - Cocaine dependence, uncomplicated Status: Chronic (6) Nicotine dependence Qualifiers: Nicotine product type: cigarettes Substance use status: uncomplicated Qualified Code(s): F17.210 - Nicotine dependence, cigarettes, uncomplicated Status: Chronic (7) Hepatitis C Qualifiers: Viral hepatitis chronicity: unspecified Status: Resolved Plan: D/C TODAY. FOLLOW UP WITH [facility] RECOMMENDATION FOLLOW UP WITH PCP SCHEDULED.
[2019-05-28 12:20] VITALS: BP 143/91; PULSE 80
== END 2019-05-28 09:42 | disposition home or self-care (01) | DRG 772 ==
LOC: YASAS 11:55 → Y3E 12:57
PROVIDERS: ADMIT Neuromusculoskeletal Medicine & OMM; ATTEND Neuromusculoskeletal Medicine & OMM
PROC: HZ42ZZZ Group Counseling for Substance Abuse Treatment, Cognitive-Behavioral (ICD-10-PCS; principal; 2019-05-18)
DX: F10.20 Alcohol dependence, uncomplicated (principal); F11.20 Opioid dependence, uncomplicated; F13.20 Sedative, hypnotic or anxiolytic dependence, uncomplicated; F14.20 Cocaine dependence, uncomplicated; F19.24 Other psychoactive substance dependence with psychoactive substance-induced mood disorder; F43.10 Post-traumatic stress disorder, unspecified; I10 Essential (primary) hypertension; E11.69 Type 2 diabetes mellitus with other specified complication; B18.2 Chronic viral hepatitis C; G47.00 Insomnia, unspecified
CPT/HCPCS: 82962